=== PATIENT | female | born 1965 | race Two or more races ===

== ENCOUNTER 2023-06-15 10:12 | Outpatient (AMB) | payer MEDICAID, SELFPAY ==
[2023-06-15 10:18] VITALS: BP 170/90; PULSE 64; BMI 26.1
--- NOTE | 2023-06-15 10:18 | HO.NEPHOV ---
HPI HPI Comments History of Present Illness Details I had the privilege of seeing Maggy in follow-up for chronic kidney disease. She has history of 1 small kidney. She also has been having anemia for which she has seen senior technical support analyst and is due to have bone marrow biopsy. She feels tired. She does not have any chest pain, shortness of breath, nausea vomiting, diarrhea, dizziness or edema. She does not take any nonsteroidal anti-inflammatory medications, drugs. She is not a smoker. She claims to be compliant with her medications. She is anxious about her declining renal functions. [facility] Medical History (Updated 06/15/23 @ 10:43 by Anton Corral MD) Chronic kidney disease, stage 3b Essential (primary) hypertension Surgical History (Updated 06/15/23 @ 10:25 by Alexia Morales MA) H/O eye surgery H/O removal of cyst Family History (Updated 06/15/23 @ 10:26 by Alexia Morales MA) Mother Pancreatic cancer Kidney disease Social History (Updated 06/15/23 @ 10:26 by Alexia Morales MA) Alcohol intake: never Patient Tobacco Use Status: Never used Tobacco Vital Signs 06/15/23 10:18 Height 5 ft 9 in Weight 176 lb 8 oz BMI 26.1 BP 170/90 H Blood Pressure Location Lt brachial Position Sitting Pulse 64 Pulse Source Pulse Oximeter Physical Exam Vital Signs: Last Vital Signs Pulse 64 06/15/23 10:18 BP 170/90 H 06/15/23 10:18 BMI result Body Mass Index 26.1 Const General: comfortable and no acute distress Orientation/consciousness: patient oriented x3 HEENT Head: Yes normocephalic Mouth: Normal oral and palatal mucosa present Eyes EOM: EOMs intact bilaterally Neck Neck: Yes supple Resp Auscultation: clear to auscultation bilaterally Cardio Jugular venous distension: no JVD Rate: regular rate Heart sounds: Murmur heart sound present GI Palpation (GI): Soft to palpation Auscultation: normal bowel sounds General: Yes no CVA tenderness Back/Spine/Pelvis Back: no CVA tenderness Skin General skin exam: no rashes or lesions noted Neuro General: patient oriented x3 and moves all extremities Extrem General: Yes no pedal edema Assessment & Plan Assessment & Plan (1) Essential (primary) hypertension: Code(s): I10 - Essential (primary) hypertension (2) CKD stage 4 secondary to hypertension: Code(s): I12.9 - Hypertensive chronic kidney disease with stage 1 through stage 4 chronic kidney disease, or unspecified chronic kidney disease; N18.4 - Chronic kidney disease, stage 4 (severe) Plan I have ordered workup including nuclear medicine split function study of the kidney along with a 24 urine collection for protein and GFR. She needs to undergo her bone marrow biopsy soon. She is on carvedilol. She is not on CARLOS-inhibitor. She would be a candidate for Farxiga. She likely will need a renal biopsy. She will be seen in the office in a few weeks for further ongoing continued care. All questions answered. Further management is pending will review data. Time spent evaluating patient, retrieving data and documentation 33 minutes. Orders: Orders IRON PROFILE 06/15/23 I10 - Essential (primary) hypertension, I12.9 - Hypertensive chronic kidney disease with stage 1 through stage 4 chronic kidney disease, or unspecified chronic kidney disease, N18.4 - Chronic kidney disease, stage 4 (severe) Protein, 24 Hr Urine Group 06/15/23 I10 - Essential (primary) hypertension, I12.9 - Hypertensive chronic kidney disease with stage 1 through stage 4 chronic kidney disease, or unspecified chronic kidney disease, N18.4 - Chronic kidney disease, stage 4 (severe) Creatinine Clearance Urine 06/15/23 I10 - Essential (primary) hypertension, I12.9 - Hypertensive chronic kidney disease with stage 1 through stage 4 chronic kidney disease, or unspecified chronic kidney disease, N18.4 - Chronic kidney disease, stage 4 (severe) NM renal flow w pharm int 06/15/23 I10 - Essential (primary) hypertension, I12.9 - Hypertensive chronic kidney disease with stage 1 through stage 4 chronic kidney disease, or unspecified chronic kidney disease, N18.4 - Chronic kidney disease, stage 4 (severe) Ferritin 06/15/23 I10 - Essential (primary) hypertension, I12.9 - Hypertensive chronic kidney disease with stage 1 through stage 4 chronic kidney disease, or unspecified chronic kidney disease, N18.4 - Chronic kidney disease, stage 4 (severe) Coding Level of Care Code Est Pt Level 3 (73070) Diagnoses Essential (primary) hypertension I10 CKD stage 4 secondary to hypertension I12.9; N18.4
== END 2023-06-15 10:47 | disposition home or self-care (01) ==
PROVIDERS: PCP Nurse Practitioner Family; Visit Provider Internal Medicine Nephrology
DX: I12.9 Hypertensive chronic kidney disease with stage 1 through stage 4 chronic kidney disease, or unspecified chronic kidney disease (principal); N18.4 Chronic kidney disease, stage 4 (severe)
CPT/HCPCS: 99214

== ENCOUNTER → 2023-06-15 10:12 | Outpatient (BNVA) | payer MEDICAID, SELFPAY | PROVIDERS: PCP Nurse Practitioner Family; Visit Provider Internal Medicine Nephrology | DX: I12.9 Hypertensive chronic kidney disease with stage 1 through stage 4 chronic kidney disease, or unspecified chronic kidney disease (principal); N18.4 Chronic kidney disease, stage 4 (severe) | CPT/HCPCS: 99212 ==

== ENCOUNTER 2023-06-26 13:37 | Outpatient (REF) | payer MEDICAID, SELFPAY ==
[2023-06-26 16:10] LABS: MANUAL DIFF FLAG NO
[2023-06-26 16:19] LABS: Basophils Percent Auto 0.4 % (0-2); Eosinophils Percent Auto 0.1 % (0-4); Hematocrit 23.9 % (37.0-47.0); Hemoglobin 7.6 g/dl (12.0-16.0); Imm Gran Abs Auto 0.35 X10*3/uL (0.00-0.03); Imm Gran Pct Auto 4.4 % (0.0-0.4); Lymphocytes Percent Auto 25.7 % (20-40); Mean Corpuscular HGB Conc 31.8 g/dl (31.0-35.0); Mean Corpuscular Hemoglobin 27.6 pg (27.0-33.0); Mean Corpuscular Volume 86.9 fL (80.0-98.0); Mean Platelet Volume 10.8 fL (9.4-12.3); Monocytes Absolute Auto 0.4 X10*3/uL (0.1-1.2); Monocytes Percent Auto 5.2 % (2-11); Neutrophils Absolute Auto 5.1 x10*3/uL (2.0-8.3); Neutrophils Percent Auto 64.2 % (45-73); Platelet Count 204 X10*3/uL (160-400); Red Blood Count 2.75 X10*6/uL (4.20-5.50); Red Cell Distribution Width 18.9 % (11.0-16.0); White Blood Count 7.9 X10*3/uL (4.8-10.8)
[2023-06-26 16:21] LABS: NRBC Pct Auto 1.1 /100WBC (0.0-0.2)
[2023-06-26 16:27] LABS: INTERNATIONAL NORM RATIO 1.1 (0.9-1.1)
[2023-06-26 16:33] LABS: Anion Gap 12 (12-20); Blood Urea Nitrogen 27 mg/dL (9-16); Calcium 9.7 mg/dL (8.4-10.2); Carbon Dioxide 29 mmol/L (22-29); Chloride 105 mmol/L (96-108); Estimated Glomerular Filt Rate 33; Iron 99 mcg/dL (30-160); Percent Iron Saturation 66 % (15-50); Potassium 3.6 mmol/L (3.3-5.1); Sodium 142 mmol/L (135-145); Total Iron Binding Capacity 151 mcg/dL (228-428); Unsaturated Iron Binding 52 ug/dL
[2023-06-26 16:52] LABS: Ferritin 403 ng/mL (10-250); Vitamin D 25-OH Total 37.5 ng/mL (>30)
[2023-06-29 11:53] LABS: Calcium (PTHI) 9.6 mg/dL (8.6-10.4); PTHI 35 pg/mL (16-77)
[2023-06-29 15:34] LABS: Kappa/Lambda Lt Ch Free Ratio 10.21 (0.26-1.65); Lambda Light Chain, Free Serum 18.7 mg/L (5.7-26.3)
[2023-06-29 18:23] LABS: PES - Abn Protein Band 1 3.1 g/dL (NONE DETECTED); Prot Elec - Albumin 3.9 g/dL (3.8-4.8); Prot Elec - Alpha1 0.3 g/dL (0.2-0.3); Prot Elec - Alpha2 0.7 g/dL (0.5-0.9); Prot Elec - Beta 1 0.4 g/dL (0.4-0.6); Prot Elec - Beta 2 0.3 g/dL (0.2-0.5); Prot Elec - Gamma 3.7 g/dL (0.8-1.7); Prot Elec - Total Protein 9.3 g/dL (6.1-8.1)
== END 2023-06-26 13:38 | disposition home or self-care (01) ==
LOC: HO.HMGCLDS 13:37
PROVIDERS: Absent Provider Internal Medicine; PCP Nurse Practitioner Family; Visit Provider Internal Medicine Nephrology
DX: I12.9 Hypertensive chronic kidney disease with stage 1 through stage 4 chronic kidney disease, or unspecified chronic kidney disease (principal); N18.4 Chronic kidney disease, stage 4 (severe); D47.2 Monoclonal gammopathy
CPT/HCPCS: 36415; 80051; 82306; 82310; 82565; 82575; 82728; 83521; 83540; 83970; 84100; 84156; 84165; 84520; 85025; 85610

== ENCOUNTER 2023-07-13 10:04 | Outpatient (AMB) | payer MEDICAID, SELFPAY ==
[2023-07-13 10:14] VITALS: BP 132/72; PULSE 66; BMI 25.7
--- NOTE | 2023-07-13 10:14 | HO.NEPHOV_ITS ---
HPI HPI Comments History of Present Illness Details I had the privilege of seeing Maggy in follow-up for chronic kidney disease. She has history of 1 small kidney. She also has been having anemia for which she has seen quality checker and had bone marrow biopsy. She feels tired. She does not have any chest pain, shortness of breath, nausea vomiting, diarrhea, dizziness or edema. She does not take any nonsteroidal anti- inflammatory medications, drugs. She is not a smoker. She claims to be compliant with her medications. There were no new complaints at the time of this office visit.. [facility] Medical History (Updated 06/15/23 @ 10:43 by Anton Corral MD) Chronic kidney disease, stage 3b Essential (primary) hypertension Surgical History H/O eye surgery H/O removal of cyst Family History Mother Pancreatic cancer Kidney disease Social History Alcohol intake: never Patient Tobacco Use Status: Never used Tobacco Vital Signs 07/13/23 10:14 Height 5 ft 9 in Weight 174 lb 4 oz BMI 25.7 BP 132/72 Blood Pressure Location Lt brachial Position Sitting Pulse 66 Pulse Source Pulse Oximeter Physical Exam Vital Signs: Last Vital Signs Pulse 66 07/13/23 10:14 BP 132/72 07/13/23 10:14 BMI result Body Mass Index 25.7 Const General: comfortable and no acute distress Orientation/consciousness: patient oriented x3 HEENT Head: Yes normocephalic Mouth: Normal oral and palatal mucosa present Eyes EOM: EOMs intact bilaterally Neck Neck: Yes supple Resp Auscultation: clear to auscultation bilaterally Cardio Jugular venous distension: no JVD Rate: regular rate GI Palpation (GI): Soft to palpation Auscultation: normal bowel sounds General: Yes no CVA tenderness Back/Spine/Pelvis Back: no CVA tenderness Skin General skin exam: no rashes or lesions noted Neuro General: patient oriented x3 and moves all extremities Extrem General: Yes no pedal edema Assessment & Plan Assessment & Plan (1) Chronic kidney disease, stage 3b: Code(s): N18.32 - Chronic kidney disease, stage 3b (2) Essential (primary) hypertension: Code(s): I10 - Essential (primary) hypertension Plan Her renal functions have settled to baseline. She had undergone bone marrow biopsy soon. She is on carvedilol. She is not on CARLOS-inhibitor. She would be a candidate for Farxiga. She may need a renal biopsy. She will be seen in the office in a few weeks for further ongoing continued care. All questions answered. Further management is pending will review data. Orders: Orders Electrolytes 07/13/23 N18.32 - Chronic kidney disease, stage 3b, I10 - Essential (primary) hypertension Creatinine 07/13/23 N18.32 - Chronic kidney disease, stage 3b, I10 - Essential (primary) hypertension Calcium 07/13/23 N18.32 - Chronic kidney disease, stage 3b, I10 - Essential (primary) hypertension Blood Urea Nitrogen 07/13/23 N18.32 - Chronic kidney disease, stage 3b, I10 - Essential (primary) hypertension Coding Level of Care Code Est Pt Level 3 (11210) Diagnoses Chronic kidney disease, stage 3b N18.32 Essential (primary) hypertension I10 Results Reviewed Nephrology Results: Hgb 7.6 g/dl (12.0-16.0) L 06/26/23 WBC 7.9 X10*3/uL (4.8-10.8) 06/26/23 Plt Count 204 X10*3/uL (160-400) 06/26/23 Sodium 142 mmol/L (135-145) 06/26/23 Potassium 3.6 mmol/L (3.3-5.1) 06/26/23 Chloride 105 mmol/L (96-108) 06/26/23 Carbon Dioxide 29 mmol/L (22-29) 06/26/23 BUN 27 mg/dL (9-16) H 06/26/23 Creatinine 1.63 mg/dL (0.5-1.4) H 06/26/23 Calcium 9.7 mg/dL (8.4-10.2) 06/26/23 Phosphorus 4.0 mg/dL (2.7-4.5) 06/26/23 PTH Intact 35 pg/mL (16-77) 06/26/23
== END 2023-07-13 10:48 | disposition home or self-care (01) ==
PROVIDERS: PCP Nurse Practitioner Family; Visit Provider Internal Medicine Nephrology
DX: N18.32 Chronic kidney disease, stage 3b (principal); I10 Essential (primary) hypertension
CPT/HCPCS: 99213

== ENCOUNTER → 2023-07-13 10:04 | Outpatient (BNVA) | payer MEDICAID, SELFPAY | PROVIDERS: PCP Nurse Practitioner Family; Visit Provider Internal Medicine Nephrology | DX: I12.9 Hypertensive chronic kidney disease with stage 1 through stage 4 chronic kidney disease, or unspecified chronic kidney disease (principal); N18.32 Chronic kidney disease, stage 3b | CPT/HCPCS: 99212 ==

== ENCOUNTER → 2023-08-27 11:15 | Outpatient (REF) | payer MEDICAID, SELFPAY ==
--- NOTE | ~2023-08-27 | NM_ITS ---
EXAMINATION: RENAL DYNAMIC IMAGING STUDY WITH LASIX CLINICAL INFORMATION: Essential hypertension. COMPARISON: No previous radionuclide renal scan is available for comparison. Abdominal ultrasound dated 03/22/20202014 is available for comparison. TECHNIQUE: Serial gamma scintillation camera images were obtained over the posterior trunk during the initial transit and subsequent distribution of a bolus intravenous injection of 10.0 mCi of Tc-99m DTPA. At 30 minutes later, 40 mg of Lasix was administered intravenously and an additional 30 minutes of images obtained. FINDINGS: Initial rapid sequence images show mildly diminished flow to the left kidney compared to the right. Flow to the right kidney appears normal. Subsequent sequential static images obtained up to 30 minutes show moderately diminished concentration in the left kidney compared to the right. Concentration in the right kidney appears normal. The kidneys are approximately equal in size. There is a mild delay in visualization of excretory function bilaterally which occurs at approximately 12 to 14 minutes post injection. In addition to faint collecting system activity at this time there is also faint urinary bladder activity visualized. As the study progresses there is gradually increasing bladder activity. At 30 minutes there is good visualization of activity in the urinary bladder and only minimal retention in both renal pelves. Following Lasix administration, there is continued filling of the urinary bladder and washout from the renal collecting systems bilaterally. At the end of the study almost all the excretory activity is in the urinary bladder and there is no abnormal retention in either renal collecting system. The T-1/2 washout times following Lasix administration are: Left 13 minutes and right 7 minutes. The relative function of the two kidneys based on the 2-3 minute images are: Left 40% and right 60%. NM/NM renal flow w pharm int IMPRESSION: LEFT KIDNEY: Mildly diminished perfusion and function. The relative function of this kidney is significantly less than on the right, as quantitated above. There is no hydronephrosis or outflow obstruction. RIGHT KIDNEY: Normal-appearing perfusion but mildly diminished function as evidenced by a significant delay in visualization of excretory function. There is no hydronephrosis or outflow obstruction.
== END ==
LOC: HO.NUCMED 11:15
PROVIDERS: PCP Nurse Practitioner Family; Visit Provider Internal Medicine Nephrology
DX: I12.9 Hypertensive chronic kidney disease with stage 1 through stage 4 chronic kidney disease, or unspecified chronic kidney disease (principal); N18.4 Chronic kidney disease, stage 4 (severe)
CPT/HCPCS: 78708; A9539; J1940

== ENCOUNTER 2023-10-13 09:39 | Outpatient (AMB) | payer MEDICAID, SELFPAY ==
--- NOTE | 2023-10-13 09:49 | HO.NEPHOV ---
HPI HPI Comments History of Present Illness Details I had the privilege of seeing Maggy in follow-up for chronic kidney disease. She has history of 1 small kidney. 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 She underwent PLEX. She is getting weekly treatment by her audio video tech. She feels tired. She does not have any chest pain, shortness of breath, nausea vomiting, diarrhea, dizziness or edema. She does not take any nonsteroidal anti-inflammatory medications, drugs. She is not a smoker. She claims to be compliant with her medications. There were no other new complaints at the time of this office visit. [facility] Medical History (Updated 06/15/23 @ 10:43 by Anton Corral MD) Chronic kidney disease, stage 3b Essential (primary) hypertension Surgical History H/O eye surgery H/O removal of cyst Family History Mother Pancreatic cancer Kidney disease Social History Alcohol intake: never Patient Tobacco Use Status: Never used Tobacco Vital Signs 10/13/23 09:50 Height 5 ft 9 in BP 136/70 Blood Pressure Location Lt brachial Position Sitting Pulse 65 Pulse Source Pulse Oximeter Pulse Oximetry (%) 99 Oxygen Delivery Method Room Air Physical Exam Vital Signs: Last Vital Signs Pulse 65 10/13/23 09:50 BP 136/70 10/13/23 09:50 Pulse Ox 99 10/13/23 09:50 Oxygen Delivery Method Room Air 10/13/23 09:50 Const General: comfortable and no acute distress Orientation/consciousness: patient oriented x3 HEENT Head: Yes normocephalic Mouth: Normal oral and palatal mucosa present Eyes EOM: EOMs intact bilaterally Neck Neck: Yes supple Resp Auscultation: clear to auscultation bilaterally Cardio Jugular venous distension: no JVD Rate: regular rate GI Palpation (GI): Soft to palpation Auscultation: normal bowel sounds General: Yes no CVA tenderness Back/Spine/Pelvis Back: no CVA tenderness Skin General skin exam: no rashes or lesions noted Neuro General: patient oriented x3 and moves all extremities Extrem General: Yes no pedal edema Assessment & Plan Assessment & Plan (1) Chronic kidney disease, stage 3b: Code(s): N18.32 - Chronic kidney disease, stage 3b (2) Essential (primary) hypertension: Code(s): I10 - Essential (primary) hypertension Plan Her renal functions have settled to baseline. She is followed by her Credit Administration Specialist. She is on carvedilol. She is not on CARLOS-inhibitor. She may need a renal biopsy if her renal function decline. She will be seen in the office in a few weeks for further ongoing continued care. All questions answered. Further management is pending data. Orders: Orders Calcium Today I10 - Essential (primary) hypertension, N18.32 - Chronic kidney disease, stage 3b Electrolytes Today I10 - Essential (primary) hypertension, N18.32 - Chronic kidney disease, stage 3b Blood Urea Nitrogen Today I10 - Essential (primary) hypertension, N18.32 - Chronic kidney disease, stage 3b Creatinine Today I10 - Essential (primary) hypertension, N18.32 - Chronic kidney disease, stage 3b Uric Acid Today I10 - Essential (primary) hypertension, N18.32 - Chronic kidney disease, stage 3b Coding Level of Care Code Est Pt Level 3 (51211) Diagnoses Chronic kidney disease, stage 3b N18.32 Essential (primary) hypertension I10
[2023-10-13 09:50] VITALS: BP 136/70; PULSE 65; O2SAT 99
== END 2023-10-13 10:23 | disposition home or self-care (01) ==
LOC: HO.HKAS 09:39
PROVIDERS: PCP Nurse Practitioner Family; Visit Provider Internal Medicine Nephrology
DX: N18.32 Chronic kidney disease, stage 3b (principal); I10 Essential (primary) hypertension
CPT/HCPCS: 99213

== ENCOUNTER → 2023-10-13 09:39 | Outpatient (BNVA) | payer MEDICAID, SELFPAY | PROVIDERS: PCP Nurse Practitioner Family; Visit Provider Internal Medicine Nephrology | DX: I12.9 Hypertensive chronic kidney disease with stage 1 through stage 4 chronic kidney disease, or unspecified chronic kidney disease (principal); N18.32 Chronic kidney disease, stage 3b | CPT/HCPCS: 99212 ==

== ENCOUNTER 2024-01-19 10:14 | Outpatient (AMB) | payer MEDICAID, SELFPAY ==
--- NOTE | 2024-01-19 10:17 | HO.NEPHOV ---
Vital Signs 01/19/24 10:30 Height 5 ft 9 in Weight 191 lb 6 oz BMI 28.3 BP 118/62 Blood Pressure Location Lt brachial Position Sitting Pulse 63 Pulse Source Pulse Oximeter Pulse Oximetry (%) 97 Oxygen Delivery Method Room Air Intake Visit Reasons: 3 mon follow up/ LVM [employer] Business Analyst Required: No Accompanied by: Self / Same As Patient Allergies ampicillin Allergy (Verified 01/19/24 10:32) Unknown Penicillins Allergy (Verified 01/19/24 10:32) Unknown HPI Comments Details: I had the privilege of seeing Maggy in follow-up for chronic kidney disease. She has history of 1 small kidney. 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 She had undergone PLEX. She is getting treatment by her housing director. She feels tired. She does not have any chest pain, shortness of breath, nausea vomiting, diarrhea, dizziness or edema. She does not take any nonsteroidal anti-inflammatory medications, drugs. She is not a smoker. She claims to be compliant with her medications. There were no other new complaints at the time of this office visit. [facility] Medical History (Updated 06/15/23 @ 10:43 by Anton Corral MD) Chronic kidney disease, stage 3b Essential (primary) hypertension Surgical History H/O eye surgery H/O removal of cyst Family History Mother Pancreatic cancer Kidney disease Social History Alcohol intake: never Patient Tobacco Use Status: Never used Tobacco Physical Exam Vital Signs: Last Vital Signs Pulse 63 01/19/24 10:30 BP 118/62 01/19/24 10:30 Pulse Ox 97 01/19/24 10:30 Oxygen Delivery Method Room Air 01/19/24 10:30 BMI result Body Mass Index 28.3 Const General: comfortable and no acute distress Orientation/consciousness: patient oriented x3 HEENT Head: Yes normocephalic Mouth: Normal oral and palatal mucosa present Eyes EOM: EOMs intact bilaterally Neck Neck: Yes supple Resp Auscultation: clear to auscultation bilaterally Cardio Jugular venous distension: no JVD Rate: regular rate GI Palpation (GI): Soft to palpation Auscultation: normal bowel sounds General: Yes no CVA tenderness Back/Spine/Pelvis Back: no CVA tenderness Skin General skin exam: no rashes or lesions noted Neuro General: patient oriented x3 and moves all extremities Extrem General: Yes no pedal edema Assessment & Plan Assessment & Plan (1) Chronic kidney disease, stage 3b: Code(s): N18.32 - Chronic kidney disease, stage 3b Category: Medical (2) Essential (primary) hypertension: Code(s): I10 - Essential (primary) hypertension Category: Medical Plan Her renal functions have settled to baseline. She is followed by her University President. She is on carvedilol. She is not on CARLOS-inhibitor. She does not need a renal biopsy now. She will be seen in the office for further ongoing continued care. All questions answered. Further management is pending data Coding Level of Care Code Est Pt Level 4 (47548) Diagnoses Chronic kidney disease, stage 3b N18.32 Essential (primary) hypertension I10
[2024-01-19 10:30] VITALS: BP 118/62; PULSE 63; O2SAT 97; BMI 28.3
== END 2024-01-19 10:50 | disposition home or self-care (01) ==
PROVIDERS: PCP Nurse Practitioner Family; Visit Provider Internal Medicine Nephrology
DX: N18.32 Chronic kidney disease, stage 3b (principal); I10 Essential (primary) hypertension
CPT/HCPCS: 99214

== ENCOUNTER → 2024-01-19 10:14 | Outpatient (BNVA) | payer MEDICAID, SELFPAY | PROVIDERS: PCP Nurse Practitioner Family; Visit Provider Internal Medicine Nephrology | DX: I12.9 Hypertensive chronic kidney disease with stage 1 through stage 4 chronic kidney disease, or unspecified chronic kidney disease (principal); N18.32 Chronic kidney disease, stage 3b | CPT/HCPCS: 99212 ==

== ENCOUNTER 2024-10-04 09:57 | Outpatient (REF) | payer MEDICAID, SELFPAY ==
--- OUTSIDE RECORDS SUMMARY | 2024-10-04 12:15 | XMS_ITS | Encounter Summary ---
Author Organization [facility] Address [address] [place] [address] Care Team Providers Care Trains Service Conductor Name Role Phone Fito Rush Primary Care Provider Encounter Details Date Type Department Care Team [...] Information Value Date Recorded Sex Assigned at Not on file Legal Sex Female 9:36 AM EST Gender Identity Not on file Sexual Orientation Not on file documented as [...] Care Team (Late st Contact Info) Description 10/25/2024 10:15 AM EDT Appointment [facility] Xray [address] [place] [phone] 11/01/2024 9:15 AM EDT Office Visit Orthopedic Surgery - [place] [address] [phone] Goyo Noriega DPM [address] [address] 12/16/2024 9:15 AM EDT Office Visit [facility] Hematology Oncology [address] [place] [address] Clarias Vazquez MD [address] [place] [address] documented as of this encounter Visit Diagnoses Not on filedocumented in this encounter Care Teams Trains Service Conductor Relationship Specialty Start Date End Date Fito Rush PA [address] [address] PCP - General 07/17/23 documented as of this encounter
--- OUTSIDE RECORDS SUMMARY | 2024-10-04 12:15 | XMS_ITS | Encounter Summary ---
Author Organization [facility] Address [id number] [place] [phone] Care Team Providers Care Media Traffic Manager Name Role Phone Fito Rush Primary Care Provider [phone] Encounter Details Date Type Department Care Team (Late st Contact Info) Description 06/03/2024 9:47 AM EDT Hospital Encounter TH HISTORIC ENCOUNTERS EASTERN CONVERSION ONLY Lia Pendleton MD [address] [place] [address] Social History Tobacco Use Types Packs/Day Years [...] y.o. female. 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 BCN OP RITUXIMAB (IV/SC) WEEKLY X4 Plan Provider: Clarisa Palomo MD Treatment goal: Palliative Line of treatment: First Line 10/08/2023 - Chemotherapy [facility] BCN OP BORTEZOMIB SC OR IVP, DAYS [...] ??? 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HCC) ??? Thee's disease (HCC) ??? Anemia ??? Chronic kidney disease ??? Hypertension ??? Iron deficiency anemia 01/27/2023 ??? Stroke (HCC) SOCIAL HISTORY: She never smoked She denies alcohol use and abuse She is single FAMILY HISTORY: Noncontributory Current Outpatient Medications: ??? atorvastatin (LIPITOR) tablet 40 mg, , Disp: , Rfl: ??? Biotin 11149 MCG TABS, Take by mouth., Disp: , [...] (HCC) CHRONIC KIDNEY DISEASE STAGE 3A 58-year-old -[place] female, who has multiple medical issues including IgM kappa monoclonalgammopathy/lymphoplasmacytic lymphoma, patient earlier this year had rituximab infusion and has been on Velcade weekly, patient has 2 more weekly Velcade to go and after that plan is to have rituximab infusion but unfortunately patient has been having some worsening visual symptom, seen by an show dog trainer locally who is not sure etiology of [...] Info) Description 10/25/2024 10:15 AM EDT Appointment [facility] Xray [address] [place] [phone] 11/01/2024 9:15 AM EDT Office Visit Orthopedic Surgery - [place] [address] [facility] [address] [place] [phone] Goyo Noriega DPStef [address] [address] 12/16/2024 9:15 AM EDT Office Visit [facility] Hematology Oncology [address] [place] [address] Clarisa Vazquez MD [address] [place] [address] documented as of this encounter Procedures Procedure Name Priority Date/Time Associated Diagnosis Comments ..MISCELLANEOUS REFERENCE LAB TEST 06/03/2024 documented in this encounter Results * Miscellaneous reference lab test (06/03/2024) us Provider Onbase LAB BLOOD ORDERABLES Final Re sult documented in this encounter Visit Diagnoses Not on filedocumented in this encounter Care Teams Media Traffic Manager Relationship Specialty Start Date End Date Fito Rush PA [facility] [address] [place] [address] PCP - General 07/17/23 documented as of this encounter
--- OUTSIDE RECORDS SUMMARY | 2024-10-04 12:15 | XMS_ITS | Clinical Summary ---
Author Organization [facility] Address [address] [place] [address] Care Team Providers Care Electrophysiologist Name Role Phone Fito Rush PA-C Primary Care Provider Allergies Active Allergy Reactions Criticality Noted Date Comments Penicillins Hives Medium 09/15/2022 Seasonal Other (See Comments) Low 12/11/2023 Runny eyes , runny nose Medications Medication Sig Dispensed Refills Start Date End Date Status atorvastatin (LIPITOR) tablet 40 mg 0 08/08/2022 Active FeroSul 325 (65 Fe) MG tablet Take 1 tablet (325 mg total) by mouth once. Take one tablet once daily 0 07/28/2022 Active hydrocortisone (CORTEF) tablet 5 mg Take 1 tablet (5 mg total) by mouth daily. In the afternoon 0 06/21/2022 Active Cholecalciferol (Vitamin D3) 50 MCG (2000 UT) capsule 0 01/22/2023 Active folic acid (FOLVITE) tablet 1 mg 0 01/21/2023 Active hydrocortisone (CORTEF) tablet 5 mg Take 2 tablets (10 mg total) by mouth daily. 0 05/13/2020 Active carvedilol (COREG) 6.25 MG tablet Take 1 tablet (6.25 mg total) by mouth 2 (two) times a day. 0 02/26/2023 Active Biotin 69797 MCG TABS Take by mouth. 0 Active potassium chloride ER (K-DUR) 10 MEQ tablet Take 1 tablet (10 mEq total) by mouth 2 (two) times a day. 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) 06/15/2023 Iron deficiency anemia 01/27/2023 Microcytic anemia 09/15/2022 Hemoglobinopathy 09/15/2022 Sickle cell trait 09/15/2022 Alpha thalassemia trait 09/15/2022 Stage 3a chronic kidney disease 09/15/2022 Other fatigue 09/15/2022 High serum protein level 09/15/2022 Family History Medical History Relation Name Comments Cancer Mother Relation Name Status Comments Mother Social History Tobacco Use Types Packs/Day Years Used Date Smoking Tobacco: Never Smokeless Tobacco: Never Alcohol Use Standard Drinks/Week Comments Never 0 (1 standard drink = 0.6 oz pur e alcohol) Sex and Gender Information Value Date Recorded Sex Assigned at Female 06/20/2022 1:41 PM EST Gender Identity Female 07/23/2023 12:10 PM EST Sexual Orientation Straight 07/23/2023 12 :10 PM EST Job Start Date Occupation Industry Not on file Not on file Not on file Last Filed Vital Signs Vital Sign Reading Time Taken Comments Blood Pressure 122/74 06/10/2024 10:14 AM EDT Pulse 61 06/10/2024 10:14 AM EDT Temperature 36.7 ??C (98 ??F) 06/10/2024 10: 14 AM EDT Respiratory Rate 18 06/10/2024 10:1 4 AM EDT Oxygen Saturation 100% 06/10/2024 10: 14 AM EDT Inhaled Oxygen Concentration - - Weight 88.9 kg (195 lb 15.8 oz) 024 11:04 AM EDT Height 175.3 cm (5' 9 ) 05/13/2024 9:20 AM EDT Body Mass Index 28.94 05/13/2024 9:20 AM EDT Plan of Treatment Health Maintenance Due Date Last Done Comments Hepatitis B Vaccines (1 of 3 - 3-dose series) 1965 COVID-19 Vaccine (#1) 1970 Pneumococcal Vaccine (1 of 2 - PCV) 1971 Depression Screening 1977 BMI Counseling 1983 Preventative Health Evaluation 1983 DTap / Tdap / Td (1 - Tdap) 1984 Shingrix-Zoster Vaccine (1 of 2) 1984 Cervical Cancer Screening (P ap Smear) 1986 Colon Cancer Screening (Colonoscopy) 2010 Breast Cancer Screening (Mammogram) 2015 Influenza Vaccine (#1) 2024 Hepatitis C Screening Completed 09/02/2022 RSV Ped < 20 months Aged Out No longe r eligible based on patient's age to complete this topic Care Teams Electrophysiologist Relationship Specialty Start Date End Date Fito Rush PA-C [address] [place] [address] PCP - General Physician Sharepoint Application Architect 07/17/23
--- OUTSIDE RECORDS SUMMARY | 2024-10-04 12:15 | XMS_ITS ---
Author Organization [facility] Address [address] [place] [address] Care Team Providers Care Bungy Jump Master Name Role Phone Fito Rush PA-C Primary Care Provider [phone] Active Problems Problem Noted Date Diagnosed Date [...] fatigue 09/15/2022 High serum protein level 09/15/2022 Current Oncology Plans [facility] BCN OP BORTEZOMIB SC OR IVP, DAYS 1,8,15,22 (2 HRS)* Plan Start Date: 10/07/2023 Plan Provider:Clarisa Jones MD Linked Problems 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 HCC) Treatment Medications albuterol (PROVENTIL)bortezo mib (VELCADE)dexamethasone (DECADRON)diphenhydrAMINE (BENADRYL)EPINEPHrinefamotidine (PF) (PEPCID)hydrocortisone (SOLU-CORTEF) IVmeperidine (DEMEROL) 25 MG/MLpotassium chloride ERSaline Flush 0.9 %sodium chloride (NS) 0.9 %sodium chloride 0.9% bolus (NS) Past Plans ONCOLOGY TREATMENT Plan Name Start Date Discontinue Date Treatment Medications Discontinue Reason Plan Provider Cycles [facility] BCN OP RITUXIMAB (IV/SC) WEEKLY X4 07/22/2010/06/2023 acetaminophen (TYLENOL)albuter ol (PROVENTIL)dexam ethasone sod phosphate PF (DECADRON)diphen hydrAMINE (BENADRYL)EPINEP Hrinefamotidine (PF) (PEPCID)hydrocor tisone (SOLU-CORTEF) IVmeperidine (DEMEROL) 25 MG/MLriTUXimab-h yaluronidase (RITUXAN HYCELA) 1400-23019 MG -UT/11.7MLriTUXi mab-pvvr (RUXIENCE) infusion (Outpatient record)Saline Flush 0.9 %sodium chloride (NS) 0.9 %sodium chloride 0.9% bolus (NS) Therapy Complete Subramonia Clarisa Palomo MD 2 of 2 cycles started Radiation Treatments * No radiation treatments are documented for this patient in [facility]. Treatments may have been administered in another system.
--- OUTSIDE RECORDS SUMMARY | 2024-10-04 12:15 | XMS_ITS | Encounter Summary ---
Author Organization [facility] Address [address] [place] [address] Care Team Providers Care Coffee Weigher Name Role Phone Fito Rush Primary Care Provider [phone] Encounter Details Date Type Department Care Team [...] Info) Description 10/25/2024 10:15 AM EDT Appointment [facility] Xray [address] [place] [address] 11/01/2024 9:15 AM EDT Office Visit Orthopedic Surgery - [place] [address] [phone] Goyo Noriega, DPStef [address] [address] 12/16/2024 9:15 AM EDT Office Visit [facility] Hematology Oncology [address] [place] [address] Clarisa Vazquez MD [address] [place] [phone] documented as of this encounter Visit Diagnoses Not on filedocumented in this encounter Care Teams Coffee Weigher Relationship Specialty Start Date End Date Fito Rush PA [facility] [address] [place] [address] PCP - General 07/17/23 documented as of this encounter
--- OUTSIDE RECORDS SUMMARY | 2024-10-04 12:15 | XMS_ITS | Encounter Summary ---
Author Organization [facility] Address [id number] [place] [phone] Care Team Providers Care Cream Cheese Maker Name Role Phone Fito Rush Primary Care Provider [phone] Reason for Visit * Reason Comments Follow-up Encounter Details Date Type Department Care Team (Latest Contact Info) Description 09/09/2024 9:15 AM EST Office Visit [facility] Hematology Oncology [address] [place] [address] Juan Vazquez MD [address] [place] [address] 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CMS/HCC) (Primary Dx); Alpha thalassemia trait; Adrenal insufficiency (Bledsoe's disease) (CMS/HCC); MRSA cellulitis Social History Tobacco Use Types Packs/Day Years Used Date Smoking Tobacco: Never Smokeless Tobacco: Never Tobacco Cessation:Counseling Given: Not Answered Alcohol Use Standard Drinks/Week Comments Never 0 [...] Sign Reading Time Taken Comments Blood Pressure 134/76 09/09/2024 9:17 AM EST Pulse 72 09/09/2024 9:17 AM EST Temperature 36.2 ??C (97.1 ??F) 09/09/2024 9:[address] Respiratory Rate - - Oxygen Saturation 100% 09/09/2024 9:17 AM EST Inhaled Oxygen Concentration - - Weight 86.6 kg (191 lb) 09/09/2024 9:17 AM EST Height - - Body Mass Index 28.21 08/30/2024 9:11 AM EST documented in this encounter Ordered Prescriptions Prescription Sig Dispense Quantity Refills Last Filled Start Date End Date potassium chloride (KLOR-CON) 10 mEq CR tablet Take 1 tablet (10 mEq total) by mouth 2 (two) times a day. 180 tablet 1 09/09/2024 documented in this encounter Progress Notes * Juan Vazquez MD - 09/09/2024 9:15 AM EST Follow up 3 months Labs one week before appt * Juan Vazquez MD - 09/09/2024 9:15 AM EST Images from the original note were not included. 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 female. 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 Testing in 2021 demonstrated sickle cell trait-hypertensive trait. She continues on iron p.o. 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 Patient had a staging PET CT scan --and then the initial treatment includedCompletion of 4 cycles of rituximab weekly, patient has now started on Velcade/dexamethasone, and she has completed 6 cycles, last date of Velcade therapy 06/10/2024 The previous cycle #5 was held for nearly 6 weeks, due to recurrent cellulitis of left breast Discussion at the previous visit in July 2024 regarding discontinuation of rituximab. After review of pros and cons, patient agrees to hold off further treatment for the lymphoplasmacytic lymphoma. I will continue to monitor with lab work, and imaging at 6-month interval. If she has any diseaseprogression would be a candidate to consider oral medication such as Calquence in future. Update-patient returns for follow-up. She has been feeling fairly well over the last month. She hasnot had any new episodes of infections. She remains active. She does sensation of irritation in thethroat and feels like there is more mucus secretion. Denies any chills or fevers. She had a follow-up with her PCP. She had lab work performed in the end of July that is reviewed apart from elevat ion in creatinine that is slight as well as hypokalemia no other issues. She is not taking her potassium supplements anymore. Her M spike has decreased significantly from a peak of 2.6 down to 0.3, nearly 90% response. Therefore we will continue monitoring at 3-month interval with lab work, will order restaging imaging PET CT scan after the next clinic visit, patient agrees The following is copied, reviewed and edited Cancer Staging No matching staging information was found for the patient. Oncology History 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CMS/HCC) 07/17/2023 Initial Diagnosis 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CMS/HCC) 06/24/2024 - 07/06/2024 Chemotherapy dexAMETHasone (DECADRON) tablet 8 mg, 8 mg (40 % of original dose 20 mg), oral, Once, 1 of 1 cycle Dose modification: 20 mg (original dose 20 mg, Cycle 1), 8 mg (original dose 20 mg, Cycle 1, Reason: Dose Not Tolerated) Administration: 8 mg (06/24/2024), 8 mg (07/01/2024), 8 mg (07/06/2024) riTUXimab-pvvr (RUXIENCE) 700 mg in sodium chloride 320 mL IVPB, 769 mg (100 % of original dose 375mg/m2), intravenous, Once, 1 of 1 cycle Dose modification: 375 mg/m2 (original dose 375 mg/m2, Cycle 1) Administration: 700 mg (07/01/2024), 700 mg (07/06/2024) alteplase (CATHFLO ACTIVASE) injection 2 mg, 2 mg, intra-catheter, As needed, 1 of 1 cycle riTUXimab-pvvr (RUXIENCE) 700 mg in sodium chloride 320 mL IVPB, 375 mg/m2 = 700 mg, intravenous, Once, 1 of 1 cycle Administration: 700 mg (06/24/2024) 09/2022 -57-year-old lady, who is referred for hematology evaluation regarding microcytic anemia. Patient reports that her main symptom is fatigue. She has not been able to follow-up with a PCP fora while, due to her parents being sick. More recently she establish care and had lab work performed. Patient had lab work performed at her PCP office on 09/02/2022-that demonstrated anemia with hemoglobin at 9.3, microcytic MCV 78.3 Microcytosis and anemia are chronic Platelet count, and WBC were in the normal range Metabolic profile demonstrated elevated creatinine at 1.4, and protein is high at 9.2 Of which, globulin is high at 5.4 Recent hepatitis C testing, nonreactive antibody, Iron studies reviewed from 06/09/2022-demonstrated a normal ferritin 93, iron 92, iron saturation 43% all normal. She also had testing on 06/09/2022 for hemoglobinopathy-it showed hemoglobin 8- 3.3, and hemoglobin S at 32.8, suggestive of hemoglobin SS trait/hemoglobin S trait-alpha thalassemia trait. Recommendation was to rule out concurrent iron deficiency. Cancer Staging No matching staging information was found for the patient. Oncology History 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HCC) 07/17/2023 Initial Diagnosis 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HCC) 03/2023 -Skeletal survey x-rays unremarkable. MM labs showed elevated M-spike at 1.8 with IgM Dedra monoclonal immunoglobulins, concerning for possible MGUS. Per Dr. Palomo recommendation, monitor M spike closely. If M-spike is > 2, then we should proceed with Bone Marrow Biopsy or if she becomes significantly symptomatic. Case discussed with Dr. Dewey BANKS. Patient's M spike has increased to greater than 2, and she is at risk for smoldering myeloma versus symptomatic multiple myeloma. Will inform her PCP, and also client coordinator if she develops any progressive nephropathy, hypercalcemia, anemia, skeletal lesions that are painful, would need further work-up including biopsies of skeletal lesions, bone marrow biopsy etc. 07/23/2023 - 08/20/2023 Chemotherapy [facility] BCN OP RITUXIMAB (IV/SC) WEEKLY X4 Plan Provider: Juan Palomo MD Treatment goal: Palliative Line of treatment: First Line 10/08/2023 - Chemotherapy [facility] [place] BORTEZOMIB SC OR IVP, DAYS 1,8,15,22 (2 HRS) Plan Provider: Juan Palomo MD Treatment goal: Palliative Line of treatment: First Line Fmyrpfa03/2024- Update-patient completed 3 cycles of rituximab she had recurrent MRSA infection on the skin, therefore had to hold the rituximab x 3 weeks. Patient was admitted to [facility] under surgical team and infectious disease consultation. Culture report revealed MRSA resistant to doxycycline. She was treated with linezolid. She also received Hibiclens, m upirocin etc. She has had a difficult time clearing the infection. After several discussions she has also now started on insulin for her diabetes ROS: GENERAL: No malaise, significant weight loss or fever NECK: No lumps, goiter, pain or significant neck swelling RESPIRATORY: No cough, wheezing or shortness of breath CARDIOVASCULAR: No chest pain, leg swelling or palpitations GI: No abdominal discomfort, blood in stools or black stools MUSCULOSKELETAL: No joint pain or swelling, back pain, or muscle pain. 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[facility]) 09/15/2022 Stage 3b chronic kidney disease ([facility]) 05/02/2022 MRSA cellulitis 08/05/2024 Resolved Ambulatory Problems Diagnosis Date Noted No Resolved Ambulatory Problems Past Medical History: Diagnosis Date 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[facility]) Bledsoe's disease ([facility]) Anemia Chronic kidney disease Essential hypertension Hyperlipidemia Hypertension Iron deficiency anemia 01/27/2023 Stroke ([facility]) SOCIAL HISTORY: Social History Tobacco Use Smoking status: Never Smokeless tobacco: Never Substance Use Topics Alcohol use: Never FAMILY HISTORY: Family History Problem Relation Name Age of Onset Coronary artery disease Neg Hx Cancer Mother Current Outpatient Medications: amLODIPine (NORVASC) 10 mg tablet, Take 1 tablet (10 mg total) by mouth., Disp: , Rfl: atorvastatin (LIPITOR) 40 mg tablet, Take 1 tablet (40 mg total) by mouth daily., Disp: , Rfl: biotin 10 mg tablet, Take by mouth., Disp: , Rfl: carvediloL (COREG) 6.25 mg tablet, Take 1 tablet (6.25 mg total) by mouth., Disp: , Rfl: cholecalciferol (VITAMIN D-3) 50 mcg (2,000 unit) capsule, , Disp: , Rfl: doxycycline (VIBRAMYCIN) 100 mg capsule, Take 1 capsule (100 mg total) by mouth 2 (two) times a day., Disp: 30 capsule, Rfl: 0 empagliflozin (JARDIANCE) 10 mg tablet, Take 1 tablet (10 mg total) by mouth daily., Disp: , Rfl: ferrous sulfate 325 mg (65 mg elemental iron) tablet, Take 1 tablet (325 mg total) by mouth., Disp:, Rfl: folic acid (FOLVITE) 1 mg tablet, , Disp: , Rfl: hydrocortisone (CORTEF) 5 mg tablet, 2 tabs in the morning and 1 in the pm. Dispense 20 extra tablets., Disp: , Rfl: potassium chloride (KLOR-CON) 10 mEq CR tablet, Take 1 tablet (10 mEq total) by mouth., Disp: , Rfl: Trulicity 1.5 mg/0.5 mL pen injector injection, INJECT 1.5 MG into THE SKIN ONCE a WEEK, Disp: , Rfl: valACYclovir (VALTREX) 1 gram tablet, Take 1 tablet (1,000 mg total) by mouth 2 times daily., Disp:30 tablet, Rfl: 0 Allergies Allergen Reactions Penicillins Hives, Other, Shortness of breath, Unknown and Wheezing Levonorgestrel-Ethinyl Estrad Other Runny eyes , runny nose PHYSICAL EXAM: Visit Vitals Smoking Status Never APPEARANCE: Alert and in no acute distress EYES: PERRL, conjunctiva pink and sclera are Normal without icterus ORAL CAVITY: No erythema or exudates NECK: Neck supple, no adenopathy, HEART: RRR with normal S1 and S2, no murmurs, no gallops, no JVD appreciated LUNG: clear to auscultation bilaterally Percussion note normal LYMPH NODES: No palpable superficial adenopathy ABDOMEN: Bowel sounds normoactive, no bruits, soft, non-tender, without organomegaly or palpable masses EXTREMITIES: Extremities warm and well perfused without clubbing, cyanosis, rash or edema NEURO: Oriented X 3, no focal weakness; sensation is normal LABS: Review of Lab results , interpreted Lab Results Component Value Date WBC 6.6 08/05/2024 HGB 11.1 (L) 08/05/2024 HCT 34.0 (L) 08/05/2024 MCV 81.3 08/05/2024 PLT 146 08/05/2024 Lab Results Component Value Date NA 143 08/05/2024 K 3.0 (L) 08/05/2024 CL 110 08/05/2024 CO2 29 08/05/2024 GLUCOSE 114 (H) 08/05/2024 BUN 16 08/05/2024 CREATININE 1.31 (H) 08/05/2024 CALCIUM 9.1 08/05/2024 PROT 6.3 08/05/2024 PROT 6.2 08/05/2024 PROT 6.3 08/05/2024 ALBUMIN 3.8 08/05/2024 BILITOT 0.6 08/05/2024 AST 22 08/05/2024 ALT 52 08/05/2024 ALKPHOS 72 08/05/2024 EGFR 47 (L) 08/05/2024 Serum immunofixation, M spike and IgM level, M spike likely an underestimate Beemer light chains were elevated with increased kappa to lambda light chain ratio SURGICAL PATHOLOGY REPORT Name: SHONA RODRIGUEZ Sex: F Service Date: 06/30/23 Hosp#: [id number] Date Reported: 07/06/23 : 1965 Age: 57 MR#: [id number] Physician: JUAN HEATH MD Location: [facility] BONE MARROW-ASPIRATION, CORE BIOPSY, AND CLOT: - MARKEDLY HYPERCELLULAR MARROW INVOLVED BY B CELL LYMPHOPROLIFERATIVE DISORDER. - FLOW CYTOMETRY CONSISTENT WITH CD5-POSITIVE B-CELL LYMPHOPROLIFERATIVE DISORDER. - SEE COMMENT. Comment: This is a markedly hypercellular marrow (90-95%) with sheets of small B lymphocytes and decreased background trilineage hematopoiesis. E. This case was sent to [facility], [address] [place], [place], for MYD88 Mutation Analysis, and a mutation was detected (see below). Altogether, the morphologic, immunophenotypic, and molecular results are consistent with a diagnosis of lymphoplasmacytic lymphoma. Molecular Genetics MYD88 Mutation Analysis Results: Test Result MYD88 Mutation(s) Detected Mutation(s) Detected c.794T>C (p.L265P) Review of Imaging, interpreted [facility] Diagnostic Imaging Department [address] [place] [address] Patient: SHONA RODRIGUEZ /Age/Sex: 1965 - 57 - F Unit#: [id number] Location/Status: [facility] CLI Mnemonic/Ordering Site: [facility] Ordering Physician: MYRIAM PALUMBO HOG SCRAPER [facility] Diagnostic Digital - 08/14/23933 Report Status:Signed EXAM: [facility] Digital EXAM DATE AND TIME: 08/14/2023 9:34 AM HISTORY: Short-term follow-up probably benign right breast asymmetry/dilated ducts. Previous bilateral excisional breast biopsies, pathology benign. Recent diagnosis of leukemia. COMPARISON: 01/30/23, 08/01/22, 07/02/22, 12/31/18, 12/25/16 TECHNIQUE: Bilateral digital breast tomosynthesis was performed in the CC and MLO projections. Computer aided detection with Cryptmint 7.2-H and Hochy eto 3D 3.1 was employed. TISSUE DENSITY: b: There are scattered areas of fibroglandular density. FINDINGS: No suspicious masses, grouped microcalcifications, or developing architectural distortion are seen. Branching ductal structures along the 12-1 o'clock axis of the right breast remains long-term stable, considered benign. Mild architectural distortion in the lateral retroareolar area of the right breast is unchanged, consistent with surgical scar. Biopsy markers are again seen bilaterally. A few skin calcifications our noted. The vascularity is unremarkable. IMPRESSION: Stable mammographic appearance of the breasts. No evidence of malignancy is seen. A negative mammogram in the presence of a clinically suspicious palpable abnormality does not preclude the possibility of malignancy or alter the indications for biopsy. BI-RADS: Category 2: Benign RECOMMENDATION(S): 1: Routine screening mammogram BILATERAL in 1 year. Dictating Physician: JI CESAR MD Electronically Signed by: JI CESAR MD Dic Date/Time: 08/14/2333 Sign date/Time: 08/14/23934 Review of External Documentation Notes from nephrology, notes from surgery. Tests ordered -CBC-D, CMP, SPEP, IgM level, every 3 months t No orders of the defined types were placed in this encounter. IMPRESSION: 1. 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CMS/HCC) 2. Alpha thalassemia trait 3. Adrenal insufficiency (Bledsoe's disease) (CMS/HCC) 4. 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 Focal activity in infraspinatus muscle, and also pancreatic head 3.2. Will follow-up with PET CT scan after completion of therapy. She completed 4 cycles of rituximab in early 2023 completed 6 treatment cycles with Velcade, last treatment on 06/10/2024 Rituximab plan for 4 cycles initiated completed 3 cycles Will plan to discontinue due to recurrent resistant MRSA infection and cellulitis in several areas of her skin causing abscesses-- Recent treatment included linezolid, mupirocin ointment Hibiclens, and has been advised to continuepreventative measures every 2 weeks per ID -- Patient agrees with the plan to discontinue the last treatment with rituximab --Will plan to monitor every 8 -12 weeks with lab work ordered today Patient doing well after discontinuation of rituximab, M spike down to 0.3, 90% improvement, will plan restaging imaging PET CT scan after the next clinic visit she agrees #2 anemia-multifactorial related to possible bone marrow infiltration, chronic disease, sickle celltrait, alpha thalassemia trait Additional added iron deficiency contributing, agree with plan for iron supplement once a day Lab work from last week reviewed, hemoglobin stabilized no transfusion requirements Recheck lab at 2 to 3-month interval, new Mediport therefore ordered in our lab #3 chronic disease, [id number] with nephrology, latest creatinine continuing to improve on therapy Creatinine remaining stable maintain hydration Next follow-up with client coordinator will be in June #4 Skin rash resolved without recurrence multiple episodes of MRSA resistant infection reviewed #5 infection prophylaxis-okay to discontinue patient was not able to set Ceclor anyway due to side effects #6 peripheral neuropathy-has improved over the last 2 months #7 Diabetes mellitus, patient has now started on insulin per her choice #8 right VIKTORIA aneurysm, incidental, appears to be mild, [facility] Magalie Cain ( Follow-up in 3 months and sooner if new issues patient agrees with this plan Pain Control--no issues Health Care Proxy--no one Juan Vazquez MD Cc LEONCIO Cooper documented in this encounter Plan of Treatment Upcoming Encounters Date Type Department Care Team (Late st Contact Info) Description 10/25/2024 10:15 AM EDT Appointment [facility] Xray [address] [place] [id number] 11/01/2024 9:15 AM EDT Office Visit Orthopedic Surgery - [place] [address] [phone] Goyo Noriega DPStef [address] [address] 12/16/2024 9:15 AM EDT Office Visit [facility] Hematology Oncology [address] [place] [phone] Joyce-Juan Palomo MD [address] [place] [address] documented as of this encounter Visit Diagnoses Diagnosis 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CMS/HCC)- Primary Alpha thalassemia trait Other thalassemia Adrenal insufficiency (Thee's disease) ([facility]/HCC) Glucocorticoid deficiency MRSA cellulitis Cellulitis and abscess of unspecified site documented in this encounter Discontinued Medications Medication Sig Discontinue Reason Start Date End Da te potassium chloride (KLOR-CON) 10 mEq CR tablet Take 1 tablet (10 mEq total) by mouth. Reorder 02/26/2023 09/09/2024 documented as of this encounter Care Teams Cream Cheese Maker Relationship Specialty Start Date End Date Fito Rush PA [facility] [address] [place] [address] PCP - General 07/17/23 documented as of this encounter
--- OUTSIDE RECORDS SUMMARY | 2024-10-04 12:15 | XMS_ITS | Clinical Summary ---
Author Organization [facility] Address [address] [place] [address] Phone Care Team Providers Care Photographic Aide Name Role Phone Fito Rush Primary Care Provider [phone] Allergies Active Allergy Reactions Criticality Noted Date Comments Levonorgestrel-Ethinyl Estrad Other Low 12/11/2023 Runny eyes , runny nose Penicillins Hives,Other,Shortnes s of breath,Unknown,Wheez ing High 04/11/2022 Medications atorvastatin (LIPITOR) 40 mg tablet Take 1 tablet (40 mg total) by mouth daily. 2 Active biotin 10 mg tablet Take by mouth. Active carvediloL (COREG) 6.25 mg tablet Take 1 tablet (6.25 mg total) by mouth. 3 Active cholecalciferol (VITAMIN D-3) 50 mcg (2,000 unit) capsule 3 Active ferrous sulfate 325 mg (65 mg elemental iron) tablet Take 1 tablet (325 mg total) by mouth. 2 Active folic acid (FOLVITE) 1 mg tablet 3 Active hydrocortisone (CORTEF) 5 mg tablet 2 tabs in the morning and 1 in the pm. Dispense 20 extra tablets. 0 Active amLODIPine (NORVASC) 10 mg tablet Take 1 tablet (10 mg total) by mouth. 4 Active doxycycline (VIBRAMYCIN) 100 mg capsule Take 1 capsule (100 mg total) by mouth 2 (two) times a day. 30 capsule 4 Active valACYclovir (VALTREX) 1 gram tablet Take 1 tablet (1,000 mg total) by mouth 2 times daily. 30 tablet 4 Active Trulicity 1.5 mg/0.5 mL pen injector injection INJECT 1.5 MG into THE SKIN ONCE a WEEK 4 Active empagliflozin (JARDIANCE) 10 mg tablet Take 1 tablet (10 mg total) by mouth daily. 4 Active potassium chloride (KLOR-CON) 10 mEq CR tablet Take 1 tablet (10 mEq total) by mouth 2 (two) times a day. 180 tablet 1 5 Active potassium chloride (KLOR-CON) 10 mEq CR tablet Take 1 tablet (10 mEq total) by mouth. 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 Benign hypertensive renal disease 03/25/2023 Alpha thalassemia trait 09/15/2022 Hemoglobinopathy 09/15/2022 Adrenal insufficiency (Thee's disease) 2021 Stage 3b chronic kidney disease 05/02/2022 Encounters Date Type Department Care Team Description 09/09/2024 9:15 AM EST Office Visit Hematology Oncology [address] [place] [phone] Clarisa Sims MD 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[facility]/HCC) (Primary Dx); Alpha thalassemia trait; Adrenal insufficiency (Evans's disease) ([facility]); MRSA cellulitis 08/30/2024 9:00 AM EST Office Visit Orthopedic Surgery - [place] [address] [facility] [address] [place] [phone] Goyo Noriega DPM Poorly controlled type 2 diabetes mellitus with neuropathy ([facility]) (Primary Dx); Hammertoes of both feet; Metatarsalgia of right foot; Pain in toes of both feet; Dermatophytosis, nail 08/05/2024 9:30 AM EST - 08/05/2024 11:59 PM EST Hospital Encounter Infusion Center [address] [facility] 2nd [place] [phone] 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CMS/HCC) (Primary Dx); 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CMS/HCC); Stage 3b chronic kidney disease (CMS/HCC) Discharge Disposition: Home or Self Care 08/05/2024 9:15 AM EST Office Visit Hematology Oncology [address] [place] [phone] [place] Clarisa cruz MD 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[facility]/HCC) (Primary Dx); Stage 3b chronic kidney disease (CMS/HCC); MRSA cellulitis 07/18/2024 Telephone Hematology Oncology [address] [place] [phone] [place] Clarisa cruz MD 07/15/2024 9:30 AM EST - 07/15/2024 11:59 PM EST Hospital Encounter Infusion Center [address] [place] [phone] 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[facility]/HCC) Discharge Disposition: Home or Self Care 07/13/2024 Telephone Hematology Oncology [address] [place] [phone] Fabiolaramonia-Iy Clarisa cruz MD 07/06/2024 9:08 AM EST - 07/06/2024 11:59 PM EST Hospital Encounter Infusion Center [address] [place] [phone] 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[facility]/HCC) Discharge Disposition: Home or Self Care 07/06/2024 8:45 AM EST Office Visit Hematology Oncology [address] [place] [phone] Lia Pendleton MD 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[facility]/HCC) (Primary Dx); Stage 3b chronic kidney disease ([facility]/HCC); IgM monoclonal gammopathy of uncertain significance from Last 3 Months Medical History Medical History Date Comments Essential hypertension DX:Essent ial hypertension Hyperlipidemia DX:Hyperlipidemi a Hypertension DX:Hypertension Abnormality of pituitary gla nd (CMS/HCC) DX: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HCC) Chronic kidney disease DX:Chroni c kidney disease Evans's disease ([facility]/HCC) DX:A ddison's disease (HCC) Stroke (CMS/HCC) DX:Stroke (HCC) Anemia DX:Anemia Iron deficiency anemia 01/27/2023 DX:Iron d eficiency anemia Family History Medical History Relation Name Comments Cancer Mother Coronary artery disease Neg Hx Relation Name Status Comments Mother Social History [...] on file Sexual Orientation Not on file Obstetrics History Last Filed Vital Signs Vital Sign Reading Time Taken Comments Blood Pressure 134/76 09/09/2024 9:17 AM EST Pulse 72 09/09/2024 9:17 AM EST Temperature 36.2 ??C (97.1 ??F) 09/09/2024 9:17 AM ES T Respiratory Rate - - Oxygen Saturation 100% 09/09/2024 9:17 AM EST Inhaled Oxygen Concentration - - Weight 86.6 kg (191 lb) 09/09/2024 9:17 AM EST Height 175.3 cm (5' 9 ) 08/30/2024 9:11 AM EST Body Mass Index 28.21 08/30/2024 9:11 AM EST Plan of Treatment Upcoming Encounters Date Type Department Care Team (Late st Contact Info) Description 10/25/2024 10:15 AM EDT Appointment Xray [address] [place] [phone] 11/01/2024 9:15 AM EDT Office Visit Orthopedic Surgery - [place] [address] [phone] Goyo Noriega DPM [address] [address] 12/16/2024 9:15 AM EDT Office Visit Hematology Oncology [address] [place] [phone] Clarisa Vazquez MD [address] [place] [phone] Health Maintenance Due Date Last Done Comments COVID-19 Vaccine (#1) 1970 Diabetes: Annual Foot Exam 1975 Diabetes: Annual Retina Eye Exam 1975 DTaP,Tdap,and Td Vaccines (1 - Tdap) 1984 Hepatitis B Vaccines (1 of 3 - 19+ 3-dose series) 1984 Pneumococcal Vaccine: 50+ Years (1 of 2 - PCV) 1984 Pneumococcal Vaccine: Pediatrics (0 to 5 Years) and At-Risk Patients (6 to 64 Years) (1 of 2 - PCV) 1984 Zoster Vaccines (1 of 2) 1984 Colorectal Cancer Screening: Colonoscopy 07/13/2022 Social Influencers of Health Screening 07/13/2022 Diabetes: Annual Urine Albumin-Creatinine Ratio (uACR) 03/04/2024 09/18/2022 Influenza Vaccine (#1) 2024 Breast Cancer Screening 07/24/2024 07/24/2022 Diabetes: Blood Sugar Control Test (HGBA1C) 12/13/2024 06/15/2024, 03/12/2023, 03/12/2023 Diabetes: Annual GFR (Glomerular Filtration Rate) 08/05/2025 08/05/2024, 07/06/2024, 07/01/2024, Additional history exists Hypertension/CHF/CAD Annual BMP Blood Test 08/05/2025 08/05/2024, 07/06/2024, 07/01/2024, Additional history exists Depression Screening 08/25/2025 08/25/2024 Cervical Cancer Screening: HPV 05/15/2028 05/15/2023 Cholesterol Screening (Lipid Panel) 06/15/2029 06/15/2024, 06/15/2024, 04/11/2022, Additional history exists RSV Immunization Patients 60+ Years Old (1 - 1-dose 75+ series) 2040 HIV Screening Completed 09/02/2022 Hepatitis C Screening Completed 09/02/2022, 023 HIB Vaccines Aged Out No longer eligi ble based on patient's age to complete this topic HPV Vaccines Aged Out No longer eligi ble based on patient's age to complete this topic Hepatitis A Vaccines Aged Out No long er eligible based on patient's age to complete this topic IPV Vaccines Aged Out No longer eligi ble based on patient's age to complete this topic MMR Vaccines Aged Out No longer eligi ble based on patient's age to complete this topic Meningococcal ACWY Vaccine Aged Out N o longer eligible based on patient's age to complete this topic Meningococcal B Vacine Aged Out No lo nger eligible based on patient's age to complete this topic RSV Immunization Patients Under 20 months Aged Out No longer eligible based on patient's age to complete this topic Varicella Vaccines Aged Out No longer eligible based on patient's age to complete this topic Procedures Procedure Name Priority Date/Time Associated Diagnosis Comments VT IMMUNOFIXATION ELECTROPHORESIS SERUM Routine 08/05/2024 10:03 AM EST 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CMS/HCC) VT PROTEIN ELECTROPHORETIC FRACTIONATION & QUANTITATION SERUM Routine 08/05/2024 10:03 AM EST 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CMS/HCC) Stage 3b chronic kidney disease (CMS/HCC) IMMUNOGLOBULINS IGG, IGA, IGM Routine 08/05/2024 10:03 AM EST 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CMS/HCC) IMMUNOFIXATION ELECTROPHORESIS Routine 08/05/2024 10:03 AM EST 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CMS/HCC) IMMUNOFIXATION ELECTROPHORESIS Routine 08/05/2024 10:03 AM EST 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CMS/HCC) PROTEIN, TOTAL Routine 08/05/2024 10:03 AM EST 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CMS/HCC) Stage 3b chronic kidney disease (CMS/HCC) CBC WITH AUTO DIFFERENTIAL Routine 08/05/2024 10:03 AM EST 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CMS/HCC) Stage 3b chronic kidney disease (CMS/HCC) KAPPA-LAMBDA QUANTITATIVE FREE LIGHT CHAINS Routine 08/05/2024 10:03 AM EST 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CMS/HCC) Stage 3b chronic kidney disease (CMS/HCC) CBC AND DIFFERENTIAL Routine 08/05/2024 10:03 AM EST 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CMS/HCC) Stage 3b chronic kidney disease (CMS/HCC) COMPREHENSIVE METABOLIC PANEL Routine 08/05/2024 10:03 AM EST 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CMS/HCC) Stage 3b chronic kidney disease (CMS/HCC) LACTATE DEHYDROGENASE Routine 08/05/2024 10:03 AM EST 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CMS/HCC) Stage 3b chronic kidney disease (CMS/HCC) PROTEIN ELECTROPHORESIS, SERUM Routine 08/05/2024 10:03 AM EST 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CMS/HCC) Stage 3b chronic kidney disease (CMS/HCC) CBC WITH AUTO DIFFERENTIAL Routine 07/06/2024 9:33 AM EST 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CMS/HCC) COMPREHENSIVE METABOLIC PANEL Routine 07/06/2024 9:33 AM EST 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CMS/HCC) CBC AND DIFFERENTIAL Routine 07/06/2024 9:33 AM EST 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CMS/HCC) HM HPV Routine 05/15/2023 HEMOGLOBIN A1C Routine 03/12/2023 HM URINE ALBUMIN CREATININE RATIO Routine 09/18/2022 HM HEPATITIS C SCREENING Routine 09/02/2022 HM HIV SCREENING Routine 09/02/2022 ANITA SCREENING DIGITAL Routine 07/24/2022 8:32 AM EST Encounter for screening mammogram for malignant neoplasm of breast LIPID PANEL Routine 04/11/2022 from Last 3 Months or Most Recently Relevant to Health Maintenance Results * Pathologist Review Immunofixation (08/05/2024 10:03 AM EST) Pathologist Interpretation Reviewed by Marianela Bautista MD 08/15/2024 2:11 PM EST [facility] Blood Venous blood specimen / Unknown Venipuncture / Unknown 08/05/2024 10:03 AM EST 08/05/2024 10:45 AM EST Clarisa Vazquez MD LAB BLOOD ORDERABLE S Final Result [facility] [address] [place] [address], [place] [phone] * PATHOLOGIST REVIEW PROTEIN ELECTROPHORESIS (08/05/2024 10:03 AM EST) Pathologist Interpretation Reviewed by Marianela Bautista MD 08/15/2024 2:13 PM EST [facility] Blood Venous blood specimen / Unknown Venipuncture / Unknown 08/05/2024 10:03 AM EST 08/05/2024 10:45 AM EST Clarisa Vazquez MD LAB BLOOD ORDERABLE S Final Result [facility] [address] [place] [address], [place] [phone] * (ABNORMAL) [place]eshkoro-lambda free light chains, quantitative (08/05/2024 10:03 AM EST) [place] Free Light Chain 3.04(H) 0.33 - 1.94 mg/dL 08/08/2024 2:02 PM EST [facility] Lambda Free Light Chain 0.45(L) 0.57 - 2.63 mg/dL 08/08/2024 2:02 PM EST [facility] [place]/Lambda FLC Ratio 6.76(H) 0.26 - 1.65 08/08/2024 2:02 PM EST [facility] Comment: Test performed at [facility], [address], [place], [place] ??[address] ? [phone] Gabriella Randall MD, PhD - Executive Sales Assistant Blood Venous blood specimen / Unknown Venipuncture / Unknown 08/05/2024 10:03 AM EST 08/05/2024 10:45 AM EST Subramony Taylor BANKS LAB BLOOD ORDERABLE S Final Result [facility] [address] [place] [address] * (ABNORMAL) CBC auto differential (08/05/2024 10:03 AM EST) Only the most recent of2 resultswithin the time period is included. WBC 6.6 4.8 - 10.8 K/mcL LAB HEMETOLOGY METHOD 08/05/2024 10:51 AM [facility] RBC 4.20 3.80 - 4.80 M/mcL LAB HEMETOLOGY METHOD 08/05/2024 10:51 AM [facility] Hemoglobin 11.1(L) 11.5 - 16.0 g/dL LAB HEMETOLOGY METHOD 08/05/2024 10:51 AM [facility] Hematocrit 34.0(L) 35.0 - 47.0 % LAB HEMETOLOGY METHOD 08/05/2024 10:51 AM [facility] MCV 81.3 79.0 - 98.0 FL LAB HEMETOLOGY METHOD 08/05/2024 10:51 AM [facility] MCH 26.6(L) 27.0 - 32.0 pcg LAB HEMETOLOGY METHOD 08/05/2024 10:51 AM [facility] MCHC 32.6 32.0 - 37.0 g/dL LAB HEMETOLOGY METHOD 08/05/2024 10:51 AM [facility] RDW 14.6 11.0 - 15.0 % LAB HEMETOLOGY METHOD 08/05/2024 10:51 AM [facility] Platelets 146 130 - 400 K/mcL LAB HEMETOLOGY METHOD 08/05/2024 10:51 AM [facility] MPV 11.4(H) 7.0 - 11.0 FL LAB HEMETOLOGY METHOD 08/05/2024 10:51 AM [facility] NRBC 0.0 <1.0 % LAB HEMETOLOGY METHOD 08/05/2024 10:51 AM [facility] NRBC Absolute 0.00 <0.10 K/mcL LAB HEMETOLOGY METHOD 08/05/2024 10:51 AM [facility] Neutrophils Relative 67.1 % LAB HEMETOLOGY METHOD 08/05/2024 10:51 AM [facility] Lymphocytes Relative 21.9 % LAB HEMETOLOGY METHOD 08/05/2024 10:51 AM [facility] Monocytes Relative 10.0 % LAB HEMETOLOGY METHOD 08/05/2024 10:51 AM [facility] Eosinophils Relative 0.2 % LAB HEMETOLOGY METHOD 08/05/2024 10:51 AM [facility] Basophils Relative 0.5 % LAB HEMETOLOGY METHOD 08/05/2024 10:51 AM [facility] Immature Granulocytes Relative 0.3 % LAB HEMETOLOGY METHOD 08/05/2024 10:51 AM [facility] Neutrophils Absolute 4.41 1.50 - 7.00 K/mcL LAB HEMETOLOGY METHOD 08/05/2024 10:51 AM [facility] Lymphocytes Absolute 1.44 1.00 - 5.00 K/mcL LAB HEMETOLOGY METHOD 08/05/2024 10:51 AM [facility] Monocytes Absolute 0.66 0.20 - 1.00 K/mcL LAB HEMETOLOGY METHOD 08/05/2024 10:51 AM EST [facility] Eosinophils Absolute 0.01 0.00 - 0.50 K/[facility] LAB HEMETOLOGY METHOD 08/05/2024 10:51 AM EST [facility] Basophils Absolute 0.03 0.00 - 0.20 K/[facility] LAB HEMETOLOGY METHOD 08/05/2024 10:51 AM EST [facility] Immature Granulocytes Absolute 0.02 0.00 - 0.03 K/[facility] LAB HEMETOLOGY METHOD 08/05/2024 10:51 AM EST [facility] Blood Venous blood specimen / Unknown Venipuncture / Unknown 08/05/2024 10:03 AM EST 08/05/2024 10:45 AM EST us Clarisa Vazquez MD LAB BLOOD ORDERABLE S Final Result Performing Organization Address City/[facility]/ZIP Co de Phone Number [facility] [address] [place] [address], [place] [phone] * Immunofixation electrophoresis serum (08/05/2024 10:03 AM EST) [facility] Immunofixation Result, Serum Igm kappa monoclonal immunoglobulins detected. LAB CHEMISTRY METHOD 08/15/2024 2:11 PM EST [facility] Blood Venous blood specimen / Unknown Venipuncture / Unknown 08/05/2024 10:03 AM EST 08/05/2024 10:45 AM EST Clarisa Vazquez MD LAB BLOOD ORDERABLE S Final Result Performing Organization Address City/[facility]/ZIP Co de Phone Number [facility] [address] [place] [address], [place] [phone] * (ABNORMAL) Immunoglobulins IgG, IgA, IgM (08/05/2024 10:03 AM EST) Total IgG 308(L) 549 - 1,584 mg/dL LAB CHEMISTRY METHOD 08/12/2024 2:33 PM [facility] IgA 37(L) 61 - 348 mg/dL LAB CHEMISTRY METHOD 08/12/2024 2:33 PM [facility] IgM 296(H) 23 - 259 mg/dL LAB CHEMISTRY METHOD 08/12/2024 2:33 PM [facility] Blood Venous blood specimen / Unknown Venipuncture / Unknown 08/05/2024 10:03 AM EST 08/05/2024 10:45 AM EST Clarisa Vazquez MD LAB BLOOD ORDERABLE S Final Result [facility] [address] [place] [address], * (ABNORMAL) Protein electrophoresis, serum (08/05/2024 10:03 AM EST) Pathologist [facility] Total Protein 6.3 6.0 - 8.0 g/dL LAB CHEMISTRY METHOD 08/15/2024 2:13 PM [facility] Albumin, Serum 3.7 2.9 - 4.1 g/dL LAB CHEMISTRY METHOD 08/15/2024 2:13 PM [facility] Alpha 1 Globulin (g/dL) 0.2 0.1 - 0.5 g/dL LAB CHEMISTRY METHOD 08/15/2024 2:13 PM [facility] Alpha 2 Globulin (g/dL) 1.1 0.7 - 1.5 g/dL LAB CHEMISTRY METHOD 08/15/2024 2:13 PM [facility] Beta (g/dL) 0.7 0.7 - 1.5 g/dL LAB CHEMISTRY METHOD 08/15/2024 2:13 PM [facility] Gamma Globulin (g/dL) 0.6(L) 0.7 - 1.9 g/dL LAB CHEMISTRY METHOD 08/15/2024 2:13 PM [facility] PARAPROTEIN 0.3 g/dL LAB CHEMISTRY METHOD 08/15/2024 2:13 PM [facility] SPEP Interpretation Monoclonal gammopathy Abnormal pattern with M-spike of gamma globulin mobility. Serum Immunofixation performed on this specimen demonstrated IgM [place] monoclonal protein. LAB CHEMISTRY METHOD 08/15/2024 2:13 PM [facility] Blood Venous blood specimen / Unknown Venipuncture / Unknown 08/05/2024 10:03 AM EST 08/05/2024 10:45 AM EST Subjuanis Vazquez MD LAB BLOOD ORDERABLE S Final Result Performing Organization Address [facility]/ZIP Co de Phone Number [facility] [address] [place] [address], [place] [phone] * Protein, total (08/05/2024 10:03 AM EST) Total Protein 6.3 6.0 - 8.0 g/dL LAB CHEMISTRY METHOD 08/05/2024 11:20 AM [facility] Blood Venous blood specimen / Unknown Venipuncture / Unknown 08/05/2024 10:03 AM EST 08/05/2024 10:45 AM EST us Subramarmando Vazquez MD LAB BLOOD ORDERABLE S Final Result Performing Organization Address [facility]/ZIP Co de Phone Number [facility] [address] [place] [address], [place] [phone] * (ABNORMAL) Lactate dehydrogenase (08/05/2024 10:03 AM EST) LDH 256(H) 120 - 246 unit/L LAB CHEMISTRY METHOD 08/05/2024 11:21 AM [facility] Blood Venous blood specimen / Unknown Venipuncture / Unknown 08/05/2024 10:03 AM EST 08/05/2024 10:45 AM EST Clarisa Vazquez MD LAB BLOOD ORDERABLE S Final Result [facility] [address] [place] [address], * (ABNORMAL) Comprehensive metabolic panel (08/05/2024 10:03 AM EST) Only the most recent of2 resultswithin the time period is included. Sodium 143 133 - 145 mmol/L LAB CHEMISTRY METHOD 08/05/2024 11:21 AM [facility] Potassium 3.0(L) 3.5 - 5.5 mmol/L LAB CHEMISTRY METHOD 08/05/2024 11:21 AM [facility] Chloride 110 96 - 110 mmol/L LAB CHEMISTRY METHOD 08/05/2024 11:21 AM [facility] CO2 29 21 - 32 mmol/L LAB CHEMISTRY METHOD 08/05/2024 11:21 AM [facility] Anion Gap 4 3 - 11 LAB CHEMISTRY METHOD 08/05/2024 11:21 AM [facility] Glucose 114(H) 70 - 100 mg/dL LAB CHEMISTRY METHOD 08/05/2024 11:21 AM [facility] BUN 16 5 - 25 mg/dL LAB CHEMISTRY METHOD 08/05/2024 11:21 AM [facility] Creatinine 1.31(H) 0.50 - 1.10 mg/dL LAB CHEMISTRY METHOD 08/05/2024 11:21 AM [facility] eGFR 47(L) >=60 mL/min/1. 73m2 LAB CHEMISTRY METHOD 08/05/2024 11:21 AM [facility] Comment:Calculation based on the??Chronic Kidney Disease Epidemiology Collaboration (CKD-EPI) equation refit??without adjustment for race. BUN/Creatinine Ratio 12.2 LAB CHEMISTRY METHOD 08/05/2024 11:21 AM [facility] Calcium 9.1 8.5 - 10.5 mg/dL LAB CHEMISTRY METHOD 08/05/2024 11:21 AM [facility] AST (SGOT) 22 10 - 42 unit/L LAB CHEMISTRY METHOD 08/05/2024 11:21 AM [facility] ALT (SGPT) 52 10 - 60 unit/L LAB CHEMISTRY METHOD 08/05/2024 11:21 AM [facility] Alkaline Phosphatase 72 42 - 121 unit/L LAB CHEMISTRY METHOD 08/05/2024 11:21 AM [facility] Total Protein 6.2 6.0 - 8.0 g/dL LAB CHEMISTRY METHOD 08/05/2024 11:21 AM [facility] Albumin 3.8 3.2 - 5.0 g/dL LAB CHEMISTRY METHOD 08/05/2024 11:21 AM [facility] Total Bilirubin 0.6 0.0 - 1.4 mg/dL LAB CHEMISTRY METHOD 08/05/2024 11:21 AM [facility] Blood Venous blood specimen / Unknown Venipuncture / Unknown 08/05/2024 10:03 AM EST 08/05/2024 10:45 AM EST Clarisa Vazquez MD LAB BLOOD ORDERABLE S Final Result [facility] [address] [place] [address], [place] [phone] * Cervical Cancer Screening: HPV (05/15/2023) Pathologist [facility] Cervical Cancer Screening: HPV Abstracted, No interpretation Historical Provider HEALTH MAINTENANCE Final Result * Hemoglobin A1c (03/12/2023) Pathologist [facility] Hemoglobin A1C 0.0 % Comment:No interpretation Blood Venous blood specimen / Unknown Historical Provider LAB BLOOD ORDERABLES Mai l Result * Urine Albumin Creatinine Ratio (09/18/2022) Pathologist [facility] Urine Albumin Creatinine Ratio Abstracted Historical Provider HEALTH MAINTENANCE Final Result * HIV Screening (09/02/2022) [facility] HIV Screening Abstracted Historical Provider HEALTH MAINTENANCE Final Result * Hepatitis C Screening (09/02/2022) [facility] Hepatitis C Screening Abstracted Historical Provider HEALTH MAINTENANCE Final Result * ANITA SCREENING DIGITAL (07/24/2022 8:32 AM EST) Anatomical Region Laterality Modality Mammography 07/02/2022 3:14 PM EST Narrative 07/24/2022 8:[address] [facility] Diagnostic Imaging Department [address] [place], [place] [id number] Patient: ??SHONA RODRIGUEZ ?/Age/Sex: 1965 - 56 - F Unit#: ??[id number] ? Location/Status: ??SPDIMAM/REG CLI ? Mnemonic/Ordering Site: ??DIGSC/SPMAM Ordering Physician: ??WILLIAMS MOSS MD [facility] Screening Digital - 07/02/22 - 1614 EXAM: [facility] Screening Digital EXAM DATE AND TIME: 07/02/2022 4:14 PM HISTORY: ??Screening. Excisional biopsy of the right breast in 2013 and bilateral ultrasound-guided core biopsies in 2012, pathology benign. COMPARISON: ??Previous mammograms from [facility] have been requested but have not been received as of this date. When these arrive, an addendum to this report will be issued. TECHNIQUE: CC and MLO views of both breasts were obtained using full field digital mammography. Bilateral digital breast tomosynthesis was performed in the MLO projection. Computer aided detection with [employer] 7.2-H and [employer] 3D 3.1 was employed. TISSUE DENSITY: b. There are scattered areas of fibroglandular density. FINDINGS: A lobulated, linear branching structure, approximately 6 cm in length, is visualized in the 12:00 position of the right breast, extending from the retroareolar area to the midportion of the breast, possibly a dilated duct. CC tomosynthesis views are recommended for further assessment, with targeted ultrasound to follow if appropriate based on the additional views. No grouped microcalcifications or areas of architectural distortion are seen. A biopsy marker is seen in each breast. There are rare benign calcifications. Skin calcifications are noted. The vascularity is unremarkable. IMPRESSION: 1. Right breast branching structure, possibly a dilated duct, for which additional views are recommended. The patient will be called back. 2. No mammographic evidence of malignancy is seen in the left breast. BI-RADS: ??Category 0: Incomplete - Need Additional Imaging Evaluation RECOMMENDATION(S): 1: Special mammographic view(s) needed RIGHT [id number], [id number] 3340F, 7025F Dictating Physician: ??ANA FARAH MD Electronically Signed by: ??ANA FARAH MD Dic Date/Time: ??07/24/22 0756 Sign date/Time: ??07/24/22 0832 Procedure Note Ana Farah MD - 09/11/2023 [facility] Diagnostic Imaging Department [address] [place] [id number] Patient: SHONA RODRIGUEZ /Age/Sex: 1965 - 56 - F Unit#: [id number] Location/Status: SPDIMAM/REG CLI Mnemonic/Ordering Site: [facility] Ordering Physician: WILLIAMS MOSS MD Anita Screening Digital - 07/02/22 - 1614 EXAM: [facility] Screening Digital EXAM DATE AND TIME: 07/02/2022 4:14 PM HISTORY: Screening. Excisional biopsy of the right breast in 2013 and bilateral ultrasound-guided core biopsies in 2012, pathology benign. COMPARISON: Previous mammograms from [facility] have been requestedbut have not been received as of this date. When these arrive, an addendum tothis report will be issued. TECHNIQUE: CC and MLO views of both breasts were obtained using fullfield digital mammography. Bilateral digital breast tomosynthesis was performedin the MLO projection. Computer aided detection with [employer] 7.2-H and[employer] 3D 3.1 was employed. TISSUE DENSITY: b. There are scattered areas of fibroglandular density. FINDINGS: A lobulated, linear branching structure, approximately 6 cm in length,is visualized in the 12:00 position of the right breast, extending from the retroareolar area to the midportion of the breast, possibly a dilatedduct. CC tomosynthesis views are recommended for further assessment, withtargeted ultrasound to follow if appropriate based on the additional views. No grouped microcalcifications or areas of architectural distortion areseen. A biopsy marker is seen in each breast. There are rare benigncalcifications. Skin calcifications are noted. The vascularity is unremarkable. IMPRESSION: 1. Right breast branching structure, possibly a dilated duct, for which additional views are recommended. The patient will be called back. 2. No mammographic evidence of malignancy is seen in the left breast. BI-RADS: Category 0: Incomplete - Need Additional Imaging Evaluation RECOMMENDATION(S): 1: Special mammographic view(s) needed RIGHT [id number], [id number] 3340F, 7025F Dictating Physician: ANA FARAH MD Electronically Signed by: ANA FARAH MD Dic Date/Time: 07/24/22 0756 Sign date/Time: 07/24/22 0832 Williams Moss MD IMG BI PROCEDURES Final Result * Lipid panel (04/11/2022) Triglycerides 0 mg/dL Comment:No interpretation Cholesterol 0 mg/dL Comment:No interpretation HDL 0 mg/dL Comment:No interpretation LDL Cholesterol 0 mg/dL Comment:No interpretation Blood Venous blood specimen / Unknown Historical Provider LAB BLOOD ORDERABLES Mai l Result from Last 3 Months or Most Recently Relevant to Health Maintenance Insurance MEDICAID - [place] Care Teams Photographic Aide Relationship Specialty Start Date End Date Fito Rush PA NPI: [id number] [place], [place] [address] [place] [address] PCP - General 07/17/23
--- OUTSIDE RECORDS SUMMARY | 2024-10-04 12:15 | XMS_ITS | Encounter Summary ---
Author Organization [facility] Address [id number] [place] [id number] Care Team Providers Care Supervisor Grower Name Role Phone Fito Rush Primary Care Provider [phone] Encounter Details Date Type Department Care Team (Late st Contact Info) Description 05/13/2024 9:15 AM EDT Hospital Encounter TH HISTORIC ENCOUNTERS [facility]AST[facility] CONVERSION ONLY Clarisa Vazquez MD [address] [place] [phone] Social History Tobacco Use Types Packs/Day Years [...] Info) Description 10/25/2024 10:15 AM EDT Appointment [facility] Xray [address] [place] [phone] 11/01/2024 9:15 AM EDT Office Visit Orthopedic Surgery - [place] [address] [phone] Goyo Noriega DPM [address] [address] 12/16/2024 9:15 AM EDT Office Visit [facility] Hematology Oncology [address] [place] [phone] Clarisa Vazquez MD [address] [place] [phone] documented as of this encounter Visit Diagnoses Not on filedocumented in this encounter Care Teams Supervisor Grower Relationship Specialty Start Date End Date Fito Rush PA [facility] [address] [place] [address] PCP - General 07/17/23 documented as of this encounter
--- OUTSIDE RECORDS SUMMARY | 2024-10-04 12:16 | XMS_ITS | Encounter Summary ---
Author Organization [facility] Address [address] [place] [phone] Care Team Providers Care Senior Technical Program Manager Name Role Phone Fito Rush Primary Care Provider [phone] Encounter Details Date Type Department Care Team (Latest Contact Info) Description 06/10/2024 9:30 AM EDT Hospital Encounter TH HISTORIC ENCOUNTERS [facility]AST[facility] CONVERSION ONLY Small cell B-cell lymphoma, unspecified site (CMS/HCC) Social History Tobacco Use Types Packs/Day Years [...] tells this RN I'm not going to [place] for my eyes until I see dr. Palomo She states she saw md last week who thought we could handle this here she states he told her she has to go to [place] but patient has ride issues and states [...] Info) Description 10/25/2024 10:15 AM EDT Appointment [facility] Xray [address] [place] [phone] 11/01/2024 9:15 AM EDT Office Visit Orthopedic Surgery - [place] [address] [phone] Goyo Noriega, DPM [address] [address] 12/16/2024 9:15 AM EDT Office Visit [facility] Hematology Oncology [address] [place] [phone] Joyce-Clarisa Palomo MD [address] [place] [phone] documented as of this encounter Visit Diagnoses Diagnosis Small cell B-cell lymphoma, unspecified site (CMS/HCC) documented in this encounter Care Teams Senior Technical Program Manager Relationship Specialty Start Date End Date Fito Rush PA [facility] [address] [place] [address] PCP - General 07/17/23 documented as of this encounter
--- OUTSIDE RECORDS SUMMARY | 2024-10-04 12:16 | XMS_ITS | Clinical Summary ---
Author Organization [facility] Address [address] [place] [address] Care Team Providers Care Metal Trimmer Name Role Phone Matt Curtis [facility] Primary Care Provider [phone] Source Comments PLEASE NOTE, if this patient is a minor, it may be UNLAWFUL to discuss sensitive information that is contained in these records (such as FAMILY PLANNING, MENTAL HEALTH or SUBSTANCE ABUSE) with the minor patient's parent or other person without the patient's specific authorization.[facility] Allergies Active Allergy Reactions Criticality Noted Date Comments Ampicillin Unknown 03/25/2023 Penicillins Hives,SOB High 04/11/2022 Medications gabapentin (NEURONTIN) 300 mg capsuleIndication s:Tingling of left upper extremity Take 1 Capsule by mouth 2 (two) times daily 60 Capsule 1 023 Active cholecalciferol (VITAMIN D-3) 50 mcg (2,000 unit) capsuleIndication s:Microcytic anemia Take 1 Capsule by mouth once daily 30 Capsule 2 023 Active folic acid (FOLVITE) 1 mg tabletIndications :Microcytic anemia Take 1 Tablet by mouth once daily 90 Tablet 1 023 Active FREESTYLE LITE STRIPS strips 023 Active docusate sodium (COLACE) 100 mg capsule 023 Active SOLU-CORTEF 100 mg solr 100MG INTRAMUSCULAR ONCE FOR ADRENAL CRISIS 023 Active FREESTYLE LANCETS 28 gauge 023 Active levothyroxine (SYNTHROID, LEVOXYL) 25 mcg tablet 023 Active lancets 28 gauge Freestyle lite lancets, See Instructions, # 100 each, Refills 11, Tot. Refills 11, Maintenance, use to check bld glucose 3 times daily E11.9, 02/11/23 12:10:00 EDT, Supply, 175.26, cm, 01/26/23 16:16:00 EDT, Height 023 Active blood-glucose meter (FREESTYLE LITE METER) monitoring kit Freestyle Lite meter, See Instructions, # 1 each, Refills 0, Tot. Refills 0, Maintenance, use to check bld glucose 3 times daily E11.9, 02/11/23 12:09:00 EDT, Supply, 175.26, cm, 01/26/23 16:16:00 EDT, Height 023 Active erythromycin (ROMYCIN) 5 mg/gram (0.5 %) ophthalmic ointmentIndicatio ns:Acute conjunctivitis of both eyes, unspecified acute conjunctivitis type Place 0.5 Inches into both eyes 4 (four) times daily 3.5 g 023 Active lidocaine (LIDOCAINE VISCOUS) 2 % solutionIndicatio ns:Mouth sores Pt self mix 5ml with benadryl and maalox and place on gums with q-tip every 4 hours as needed for pain 100 mL 1 023 Active diphenhydrAMINE (BENADRYL) 12.5 mg/5 mL liquidIndications :Mouth sores Pt self mix 5ml with lidocaine and maalox and place on gums with q-tip every 4 hours as needed for adams 180 mL 1 023 Active alum-mag hydroxide-simeth (MAALOX MAX) 400-400-40 mg/5 mL suspensionIndicat ions:Mouth sores Pt to self mix 5ml with benadryl and lidocaine and place on gums with q-tip every 4 hours as needed for adams 100 mL 1 023 Active hydrocortisone (CORTEF) 5 mg tablet 2 tabs in the morning and 1 in the pm. Dispense 20 extra tablets. 290 Tablet 024 Active MISCELLANEOUS MEDICAL SUPPLY MISCIndications:C hronic wound Please provide 1 roll of InterDry- Silver moisture wicking fabric. Apply once piece to affected area daily. 1 Each 1 024 Active lidocaine (LIDODERM) 5 % patch Place 1 Patch onto the skin once daily (every 24 hours) 30 Patch 1 024 Active fluticasone (FLONASE) 50 mcg/actuation nasal spray Place 1 Steele in both nostrils once daily 48 g 024 Active atorvastatin (LIPITOR) 40 mg tabletIndications :History of stroke Take 1 Tablet by mouth once daily 90 Tablet 1 024 Active silver sulfADIAZINE (SILVADENE) 1 % creamIndications: Abdominal wall abscess Apply topically once daily 50 g 1 024 Active chlorhexidine gluconate (HIBICLENS) 4 % external liquidIndications :Abdominal wall abscess Apply to skin once daily 473 mL 2 024 Active FEROSUL 325 mg (65 mg iron) tabletIndications :Anemia, unspecified type Take 1 Tablet by mouth 2 (two) times daily with a meal 180 Tablet 1 024 Active triamcinolone (KENALOG) 0.1 % creamIndications: Chronic dermatitis of hands Apply topically 2 (two) times daily 454 g 1 024 Active amLODIPine (NORVASC) 10 mg tablet Take 1 Tablet by mouth once daily for 90 days 90 Tablet 1 024 Active acetaminophen (TYLENOL) 500 mg tabletIndications :Abscess Take 2 Tablets by mouth every 6 (six) hours as needed for pain 500 Tablet 024 Active empagliflozin (JARDIANCE) 10 mg tabIndications:In adequately controlled diabetes mellitus ([facility]) Take 1 Tablet by mouth daily. 30 Tablet 2 024 Active semaglutide (RYBELSUS) 7 mg tabIndications:In adequately controlled diabetes mellitus (HCC-CMS) Take 1 Tablet by mouth every morning before breakfast 30 Tablet 5 024 Active traMADoL (ULTRAM) 50 mg tabletIndications :Atypical chest pain Take 1 Tablet by mouth 3 (three) times daily as needed for pain 30 Tablet 024 Active carvediloL (COREG) 6.25 mg tabletIndications :Essential hypertension Take 1 Tablet by mouth 2 (two) times daily with a meal 180 Tablet 025 Active mirabegron ER (MYRBETRIQ) 25 mg [id number] veractive bladder Take 1 Tablet by mouth nightly at bedtime 30 Tablet 2 01/12/ 023 2024 Discontinued(C ancelled) carvediloL (COREG) 6.25 mg tabletIndications :Essential hypertension Take 1 Tablet by mouth 2 (two) times daily with a meal 180 Tablet 024 2024 Discontinued Active Problems Problem Noted Date Diagnosed Date Inadequately controlled diabetes mellitus (HCC-C MS) 07/22/2024 Brain aneurysm 05/09/2024 Overview (05/09/2024): Apr 2024 [facility]: Incidental intracranial aneurysm: Ms. Zarate is a 58-year-old woman found to have a small 1.5 mm outpouching along the lateral aspect of the origin of the right A1 segment found on CT angiography done recently. I have reviewed the images with the patient. 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 The right VIKTORIA is supplied by flow across the anterior communicating artery. At the origin of the right A2 segment there is a laterally projecting outpouching measuring approximately 1.5 mm which could represent a small aneurysm. I have discussed with the patient the natural history of brain aneurysms including the potential risk for rupture, which would likely present with acute onset thunderclap headache at which point she should seek immediate medical attention. I discussed with her the various management options including conservative management with annual screening MRA, open surgical clipping as well as endovascular embolization. In view of the small size of this aneurysm and the patient's other comorbidities I would suggest conservative management for this aneurysm. Patient appeared to be concurrent. Also advised family screening for brain aneurysms. 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 Prediabetes 04/27/2023 Sickle cell trait ([facility]) 01/13/2023 Overactive bladder 01/13/2023 Iron deficiency anemia 09/15/2022 Alpha thalassemia trait 09/15/2022 12/25/19 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[facility]) 09/15/202212/24 Stage 3b chronic kidney disease ([facility]) 2021 Adrenal insufficiency ([place]'s disease) ([facility]) 05/02/2022 History of stroke 05/02/2022 Overview (05/02/2022): Thalamic infarct [facility] 2019 Essential hypertension 04/23/2022 Other hyperlipidemia 04/23/2022 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[facility]) 022 Overview (04/23/2022): On penitentiary use of prednisone due to this Encounters Date Type Department Care Team Description 09/05/2024 10:40 AM EST Office Visit [facility] [address] [place] [address] Gita Ordonez DO Urge urinary incontinence (Primary Dx); Poorly controlled type 2 diabetes mellitus ([facility]) 08/25/2024 10:40 AM EST Office Visit [address] [phone] Matt Curtis FNP Atypical chest pain (Primary Dx); Stage 3b chronic kidney disease ([facility]); Inadequately controlled diabetes mellitus ([facility]); History of Jose's gangrene; Essential hypertension; 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[facility]) 08/25/2024 Travel 08/22/2024 9:00 AM EST Office Visit [facility] [address] [place] [phone] Paulina Beckford Encounter for dental examination (Primary Dx) 08/22/2024 Travel 08/04/2024 Interim Notes [address] [phone] Krystal Vasquez [place] 07/27/2024 3:40 PM EST Office Visit [address] [phone] Matt Curtis, JORI MRSA colonization (Primary Dx); Atypical chest pain; Inadequately controlled diabetes mellitus ([facility]) 07/27/2024 Travel 07/14/2024 10:40 AM EST Office Visit [address] [phone] Child, FEMI Rdz Abscess 07/14/2024 Travel 07/04/2024 1:20 PM EST Office Visit [address] [phone] Child FEMI Rdz Abscess (Primary Dx) 07/04/2024 Travel from Last 3 Months Social History Tobacco Use Types Packs/Day Years Used Date Smoking Tobacco: Never Passive Smoke Exposure: Never Smokeless Tobacco: Never Tobacco Cessation:Counseling Given: Not Answered Alcohol Use Standard Drinks/Week Comments Not Currently 0 (1 standard drink = 0.6 oz pur e alcohol) Social Connections Answer Date Recorded Connectedness 1 08/25/2024 Financial Resource Strain Answer Date R ecorded Financial Resource Strain 1 2024 Stress Answer Date Recorded Stress 1 08/25/2024 Physical Activity Answer Date Recorded Physical Activity 0 04/11/2022 Food Insecurity Answer Date Recorded Food 1 08/25/2024 Transportation Needs Answer Date Record ed Transportation 1 08/25/2024 Housing Stability Answer Date Recorded Housing 1 08/25/2024 Safety and Environment Answer Date Sincere rded Safety 0 04/11/2022 Utilities Answer Date Recorded Utilities 1 08/25/2024 Employment Answer Date Recorded Stress 0 02/13/2023 Comments No Sex and Gender Information Value Date Recorded Sex Assigned at Female 04/11/2022 11:15 AM PDT Legal Sex Female 6:38 AM PDT Gender Identity Female 04/11/2022 11:15 AM PDT Sexual Orientation Straight 04/11/2022 11 :15 AM PDT Last Filed Vital Signs Vital Sign Reading Time Taken Comments Blood Pressure 127/80 09/05/2024 11:04 AM EST Pulse 86 09/05/2024 11:04 AM EST Temperature 36.7 ??C (98 ??F) 08/25/2024 10:48 AM EST Respiratory Rate 16 09/05/2024 11:04 AM EST Oxygen Saturation 100% 09/05/2024 11:04 AM EST Inhaled Oxygen Concentration - - Weight 84.4 kg (186 lb) 09/05/2024 11:04 AM EST Height 175.9 cm (5' 9.25 ) 09/05/2024 11:04 AM E Body Mass Index 27.27 09/05/2024 11:04 AM EST Plan of Treatment Upcoming Encounters Date Type Department Care Team (Late st Contact Info) Description 10/10/2024 10:00 AM EST / Visits [facility] [address] [place] [phone] Pedro Cordero LCSW [address] [place] [address] 11/29/2024 9:40 AM EDT Office Visit [facility] [address] [place] [phone] Matt Curtis FNP [address] [place] [address] 12/15/2024 8:40 AM EDT Office Visit [facility] [address] [place] [phone] Gita Ordonez DO [address] [place] [address] Health Maintenance Due Date Last Done Comments Diabetes Foot Exam 1965 Diabetes Microalbumin (w/Creatinine) 1965 HPV Screening 1965 Urine Drug Screen 1965 [id number] (#1) 1970 Retinopathy Screening 1978 Imm-DTaP/Tdap/Td (1 - Tdap) 1984 Imm-Hepatitis B (1 of 3 - 19 + 3-dose series) 1984 Imm-Pneumococcal (1 of 2 - PCV) 1984 Imm-Zoster, Recombinant (1 of 2) 1984 CT Colonography 2010 Colonoscopy 2010 Colorectal Cancer Screening 2010 FIT/gFOBT 2010 Fecal DNA 2010 Flexible Sigmoidoscopy 2010 Annual Preventive Care Visit 06/16/2023 06/16/2022 Breast Cancer Screening (Mammogram) 02/12/2024 08/14/2023, 01/30/2023, 08/01/2022, Additional history exists TSH Monitoring 02/25/2024 02/24/2023 Imm-Influenza (#1) 2024 Diabetes HbA1c 09/15/2024 06/15/2024, 08/0 10/2022, 03/12/2023, Additional history exists Depression Monitoring 11/23/2024 08/25/2024 , 05/26/2024, 05/19/2024, Additional history exists Dental BW 02/10/2025 02/09/2024 Dental Examination 02/10/2025 02/09/2024 Dental Prophy 02/21/2025 08/22/2024, 02/09/2024 Lipid Screening 06/15/2025 06/15/2024, 09/0 09/2021, 04/11/2022 Serum Creatinine 08/05/2025 08/05/2024, , 07/01/2024, Additional history exists Dental Perio Charting 08/24/2025 08/22/2024 Tobacco Screening 09/05/2025 09/05/2024 Pap Smear 05/15/2026 05/15/2023 Cervical Cancer Screening 05/15/2028 Pap + HPV 05/15/2028 05/15/2023 Dental FMX/Pano 02/10/2029 02/09/2024 HIV Screening Completed 09/02/2022, 09/02/2022 Hepatitis C Screening Completed 09/02/2022 Alcohol and Drug Screen Completed 08/25/19 25, 05/26/2024, 05/19/2024, Additional history exists Cervical Ablation/Cold-Knife Conization Discontinued Cervical Cryotherapy Discontinued Colposcopy Discontinued Endometrial Biopsy Discontinued Excision/Leep Discontinued HPV Genotyping Discontinued Vaginal Pap Discontinued Vulvoscopy Discontinued Procedures Procedure Name Priority Date/Time Associated Diagnosis Comments DENTAL CASE MANAGEMENT - CARE COORDINATION Routine 08/22/2024 9:00 AM EST Encounter for dental examination Full ORAL HYGIENE INSTRUCTIONS Routine 08/22/2024 9:00 AM EST Encounter for dental examination Full NUTRITIONAL COUNSELING CONTROL OF DENTAL DISEASE Routine 08/22/2024 9:00 AM EST Encounter for dental examination Full PROPHYLAXIS - ADULT Routine 08/22/2024 9:00 AM EST Encounter for dental examination CARD SCANNED DOCUMENT 07/27/2024 3:00 AM EST CULTURE, AEROBIC AND ANAEROBIC W/GRAM STAIN Routine 07/04/2024 3:27 PM EST Abscess COMPREHENSIVE METABOLIC PANEL Routine 06/15/2024 9:39 AM EST Prediabetes LIPID PANEL Routine 06/15/2024 9:39 AM EST Prediabetes HEMOGLOBIN GLYCOSYLATED A1C Routine 06/15/2024 9:39 AM EST Prediabetes Full INTRAORAL - COMP SERIES OF RADIOGRAPHIC IMAGES Routine 02/09/2024 3:40 PM EDT Caries of enamel (incipient) Full COMP ORAL EVALUATION - NEW/ESTABLISHED PATIENT Routine 02/09/2024 3:40 PM EDT Caries of enamel (incipient) HISTORIC MAMMOGRAM 08/14/2023 3: 00 AM EST THIN PREP PAP + HPV RNA E6/E7 (Q) Routine 05/15/2023 9:11 AM EDT Encounter for Papanicolaou smear of vagina as part of routine gynecological examination TSH W/RFLX FREE T4 Routine 02/24/2023 12 :02 PM EDT Fatigue, unspecified type HIV 1/2 AG & AB W/RFLX (4TH GEN) Routine 09/02/2022 9:12 AM EST Routine general medical examination at a health care facility HEPATITIS C AB W/RFLX HCV RNA, QT, RT PCR Routine 09/02/2022 9:12 AM EST Routine general medical examination at a health care facility from Last 3 Months or Most Recently Relevant to Health Maintenance Results * CARD SCANNED DOCUMENT (07/27/2024 3:00 AM EST) 07/27/2024 3:00 AM EST us Matt Curtis OUTDOOR ADVENTURE INSTRUCTOR SCAN ECGS Final Res ult * (ABNORMAL) CULTURE, AEROBIC AND ANAEROBIC W/GRAM STAIN (07/04/2024 3:27 PM EST) CULTURE See Note [facility] Comment: ??CULTURE, ANAEROBIC BACTERIA W/GRAM STAIN ?Micro Number: ?[id number] ??Test Status: ? Final ??Specimen Source: ?? Abscess ??Specimen Quality: ??Adequate ??Gram Stain: ?Few White blood cells seen ? No epithelial cells seen ? Few Gram positive cocci in clusters ??Result: ?No anaerobes isolated. CULTURE See Note(A) [facility] Comment: ??CULTURE, AEROBIC BACTERIA ?Micro Number: ?[id number] ??Test Status: ? Final ??Specimen Source: ?? Abscess ??Specimen Quality: ??Adequate ??Result: ?Heavy growth of ? Methicillin resistant Staphylococcus aureus (MRSA) ?MRSA ?INT ?? HARINDER ?? CIPROFLOXACIN ?S ? <=0.5 ?? CLINDAMYCIN ?R ? >=8 ?? ERYTHROMYCIN ? R ? >=8 ?? GENTAMICIN ? S ? <=0.5 ?? LEVOFLOXACIN ? S ? 0.25 ?? MOXIFLOXACIN ? S ? <=0.25 ?? OXACILLIN ?R ? NR 1 ?? TETRACYCLINE ? R ? >=16 ?? TRIMETHOPRIM/SULFA ? S ? <=10 ?? VANCOMYCIN ? S ? 1 S = Susceptible ??I = Intermediate ??R = Resistant ??NS = Not susceptible SDD = Susceptible Dose Dependent ??* = Not Tested ??NR = Not Reported NN = See Therapy Comments THERAPY COMMENTS ?Note 1: ?Oxacillin-resistant staphylococci are resistant to ?all currently available beta-lactam antimicrobial ?agents with the possible exception of ceftaroline. ABSCESS Abscess morphology / Unknown 07/04/2024 3:27 PM EST 07/04/2024 3:29 PM EST Narrative [facility] - 07/11/2024 9:59 AM EST AN UPDATE OR CORRECTION HAS BEEN MADE TO NAME Kendell Gaines PA-C LAB - NO BLOOD DRAW Final Res ult [facility] [address] [place] [id number], [facility] [address] [place] [phone] * (ABNORMAL) HEMOGLOBIN GLYCOSYLATED A1C (06/15/2024 9:39 AM EST) HEMOGLOBIN A1C 11.3(H) <5.7 % of total Hgb [facility] Comment: For someone without known diabetes, a hemoglobin A1c value of 6.5% or greater indicates that they may have diabetes and this should be confirmed with a follow-up test. For someone with known diabetes, a value <7% indicates that their diabetes is well controlled and a value greater than or equal to 7% indicates suboptimal control. A1c targets should be individualized based on duration of diabetes, age, comorbid conditions, and other considerations. Currently, no consensus exists regarding use of hemoglobin A1c for diagnosis of diabetes for children. ?? Blood Blood / Unknown 06/15/2024 9 :39 AM EST 06/15/2024 9:41 AM EST Matt Ever [employer] INSTRU[employer] LAB - BLOOD DRAW Edited R esult - Final [facility] [address] [place] [id number], [facility] [address] [phone] * (ABNORMAL) LIPID PANEL (06/15/2024 9:39 AM EST) [facility] CHOLESTEROL, TOTAL 154 <200 mg/dL [facility] HDL CHOLESTEROL 69 > OR = 50 mg/dL [facility] TRIGLYCERIDES 199(H) <150 mg/dL [facility] LDL-CHOLESTEROL 58 99 mg/dL (calc) [facility] Comment: Reference range: <100 Desirable range <100 mg/dL for primary prevention; ?? <70 mg/dL for patients with CHD or diabetic patients with > or = 2 CHD risk factors. LDL-C is now calculated using the Tanmay-Morfin calculation, which is a validated novel method providing better accuracy than the Friedewald equation in the estimation of LDL-C. Tanmay SS et al. RAMONA. 2013;310(19): 8910-7614 (http://education.ZAPR/faq/WVF452) CHOL/HDLC RATIO 2.2 <5.0 (calc) [facility] NON-HDL CHOLESTEROL 85 <130 mg/dL (calc) [facility] Comment: For patients with diabetes plus 1 major ASCVD risk factor, treating to a non-HDL-C goal of <100 mg/dL (LDL-C of <70 mg/dL) is considered a therapeutic option. Blood Blood / Unknown 06/15/2024 9 :39 AM EST 06/15/2024 9:41 AM EST Matt Brownncourt [employer] AD[employer]URE INSTRUCTOR LAB - BLOOD DRAW Final Re sult [facility] [address] [address], [facility] [address] [place] [address] * (ABNORMAL) COMPREHENSIVE METABOLIC PANEL (06/15/2024 9:39 AM EST) GLUCOSE 357(H) 65 - 99 mg/dL [facility] Comment: ?Fasting reference interval For someone without known diabetes, a glucose value >125 mg/dL indicates that they may have diabetes and this should be confirmed with a follow-up test. UREA NITROGEN (BUN) 14 7 - 25 mg/dL [facility] CREATININE (blood) 1.31(H) 0.50 - 1.03 mg/dL [facility] EGFR 47(L) > OR = 60 mL/min/1. 73m2 [facility] BUN/CREATININE RATIO 11 6 - 22 (calc) [facility] SODIUM 141 135 - 146 mmol/L [facility] POTASSIUM 3.7 3.5 - 5.3 mmol/L [facility] CHLORIDE 103 98 - 110 mmol/L [facility] CARBON DIOXIDE 31 20 - 32 mmol/L [facility] CALCIUM 9.2 8.6 - 10.4 mg/dL [facility] PROTEIN, TOTAL 5.5(L) 6.1 - 8.1 g/dL [facility] ALBUMIN 3.8 3.6 - 5.1 g/dL [facility] GLOBULIN 1.7(L) 1.9 - 3.7 g/dL (calc) [facility] ALBUMIN/GLOBULI N RATIO 2.2 1.0 - 2.5 (calc) [facility] BILIRUBIN, TOTAL 0.4 0.2 - 1.2 mg/dL [facility] ALKALINE PHOSPHATASE 57 37 - 153 U/L [facility] AST 11 10 - 35 U/L [facility] ALT 24 6 - 29 U/L [facility] Blood Blood / Unknown 06/15/2024 9 :39 AM EST 06/15/2024 9:41 AM EST Matt Ever [employer] INSTRU[employer] LAB - BLOOD DRAW Final Re sult [facility] [address] [address], [facility] [address] [address] * HISTORIC MAMMOGRAM (08/14/2023 3:00 AM EST) 08/14/2023 3:00 AM EST Matt Ever [employer]DO[employer] AD[employer]URE INSTRUCTOR IMG MAMMO Final Res ult * THIN PREP PAP + HPV RNA E6/E7 (Q) (05/15/2023 9:11 AM EDT) CLINICAL INFORMATION See Note [facility] Comment:Normal exam LMP See Note [facility] Comment:NONE GIVEN PREV. PAP See Note [facility] Comment:NONE GIVEN PREV. BX See Note [facility] Comment:NONE GIVEN SOURCE See Note [facility] Comment:Cervix STATEMENT OF ADEQUACY See Note [facility] Comment:SATISFACTORY FOR BORIS LUATION INTERPRETATION/RESU LT See Note [facility] Comment: Cytology Results: Negative for intraepithelial lesion or malignancy. Atrophic pattern; predominantly parabasal cells HAND DEVELOPER See Note [facility] [employer] Comment: KN, CT(ASCP) CT screening location: [address] ??[address] COMMENT [facility] HPV MRNA E6/E7 Not Detected Not Detected [facility] Comment: Methodology: Pumper Hand-Mediated Amplification This assay detects E6/E7 viral messenger RNA (mRNA) from 14 high-risk HPV types (16,18,31,33,35,39,45,51,52,56,58,59,66,68). Cervical sources are required for HPV testing. If a vaginal source from a patient who has had a total hysterectomy with removal of cervix was submitted, please contact the testing laboratory for alternative testing options. For additional information, please refer to http://education.S3Bubble/faq/YDE984c2 (This link if provided for information/ educational purposes only.) CYTOLOGY Cervix uteri structure / Unknown 05/15/2023 9:11 AM EDT 05/18/2023 5:02 AM EDT Narrative [facility] - 05/18/2023 10:19 PM EDT EXPLANATORY NOTE: The Pap is a screening test for cervical cancer. It is not a diagnostic test and is subject to false negative and false positive results. It is most reliable when a satisfactory sample, regularly obtained, is submitted with relevant clinical findings and history, and when the Pap result is evaluated along with historic and current clinical information. Abelardo Roa MD LAB - NO BLOOD DRAW Final Resul t Performing Organization Address City/[facility]/ZIP Co de Phone Number [employer] [address], [employer] [address] [address] * TSH W/RFLX FREE T4 (02/24/2023 12:02 PM EDT) Pathologist [facility] TSH W/REFLEX TO FT4 0.93 0.40 - 4.50 mIU/L [facility] Blood Blood / Unknown 02/24/2023 1 2:02 PM EDT 02/24/2023 12:03 PM EDT Ronal Orlando MD LAB - BLOOD DRAW Edited Resu lt - Final Performing Organization Address [facility] Co de Phone Number [employer] [address] [address], [employer] [address] [address] * HEPATITIS C AB W/RFLX HCV RNA, QT, RT PCR (09/02/2022 9:12 AM EST) HEPATITIS C ANTIBODY NON-REACT HAYDEN NON-REACT HAYDEN [facility] SIGNAL TO CUT-OFF 0.06 <1.00 [facility] Comment: HCV antibody was non-reactive. There is no laboratory evidence of HCV infection. In most cases, no further action is required. However, if recent HCV exposure is suspected, a test for HCV RNA (test code 46052) is suggested. For additional information please refer to http://[employer].S3Bubble/faq/RNP43c1 (This link is being provided for informational/ educational purposes only.) Blood Blood / Unknown 09/02/2022 9 :12 AM EST 09/02/2022 9:12 AM EST [facility] Jayme OUTDOOR ADVENTURE INSTRUCTOR-C LAB - BLOOD DRAW Edited R esult - Final Performing Organization Address City/[facility]/ZIP Co de Phone Number [employer] [address] [place] [address], [employer] [address]) [place] [address] * HIV 1/2 AG & AB W/RFLX (4TH GEN) (09/02/2022 9:12 AM EST) HIV AG/AB, 4TH GEN NON-REAC TIVE NON-REAC TIVE [employer] [facility] Comment: HIV-1 antigen and HIV-1/HIV-2 antibodies were not detected. There is no laboratory evidence of HIV infection. PLEASE NOTE: This information has been disclosed to you from records whose confidentiality may be protected by state law. ??If your state requires such protection, then the state law prohibits you from making any further disclosure of the information without the specific written consent of the person to whom it pertains, or as otherwise permitted by law. A general authorization for the release of medical or other information is NOT sufficient for this purpose. ?? For additional information please refer to http://[employer].S3Bubble/faq/HHM370 (This link is being provided for informational/ educational purposes only.) The performance of this assay has not been clinically validated in patients less than 2 years old. Blood Blood / Unknown 09/02/2022 9 :12 AM EST 09/02/2022 9:12 AM EST [facility] OUTDOOR ADVENTURE INSTRUCTOR-C LAB - BLOOD DRAW Final Re sult [facility] [address] [address], [facility] [address] [facility] (NL[address]) [place] [address] from Last 3 Months or Most Recently Relevant to Health Maintenance [place] Care Teams Metal Trimmer Relationship Specialty Start Date End Date Matt Curtis FNP [address] [place] [address] PCP - General Family Medicine, HOME SPECIALIST 02/24/23
--- OUTSIDE RECORDS SUMMARY | 2024-10-04 12:16 | XMS_ITS | Encounter Summary ---
Author Organization [facility] Address [address] [place] [address] Care Team Providers Care Account Development Associate Name Role Phone Fito Rush Primary Care Provider [phone] Encounter Details Date Type Department Care Team [...] seeing Dr. Pendleton, filling in for dr. Palomo. The ?abscess to left lower abdominal wall has healed. There is no redness, no warmth, no drainage and no s/s of infection. Patient states healed pretty good Patient did the alignment specialist this morning and states Dr. Pendleton wants you to do labs he thinkhe knows what this is and thinks we can treat it here so I dont have to go to [place] to see anotherspecialist Patient states she has [...] met at this time, call nieves at [facility], will monitor. * Historical, Notes Results - [...] Info) Description 10/25/2024 10:[address] [facility] Xray [address] [place] [address] 11/01/2024 9:15 AM EDT Office Visit Orthopedic Surgery - [place] [address] [phone] Goyo Noriega DPM [address] [address] 12/16/2024 9:15 AM EDT Office Visit [facility] Hematology Oncology [address] [place] [address] Clarisa Vazquez MD [address] [place] [address] documented as of this encounter Visit Diagnoses Not on filedocumented in this encounter Care Teams Account Development Associate Relationship Specialty Start Date End Date Fito Rush PA [facility] [address] [place] [address] PCP - General 07/17/23 documented as of this encounter
--- OUTSIDE RECORDS SUMMARY | 2024-10-04 12:16 | XMS_ITS | Encounter Summary ---
Author Organization [facility] Address [address] [place] [address] Care Team Providers Care Commercial Baking Teacher Name Role Phone EverMatt cm MEAT PACKER Primary Care Provider [phone] Reason for Visit * Reason Comments Follow Up Urinary urgency Encounter Details Date Type Department Care Team (Late st Contact Info) Description 09/05/2024 10:40 AM EST Office Visit [address] [phone] Gita Ordonez DO [address] [place] [address] Urge urinary incontinence (Primary Dx); Poorly controlled type 2 diabetes mellitus ([facility]) Social History Tobacco Use Types Packs/Day Years [...] Orientation Straight 04/11/2022 11 :15 AM PDT COVID-19 Exposure Response Date Recorded In the last 10 days, have yo u been in contact with someone who was confirmed or suspected to have Coronavirus/COVID-19? No / Unsure 08/25/2024 10:31 AM EST documented as of this encounter Last Filed Vital Signs Vital Sign Reading Time Taken Comments Blood Pressure 127/80 09/05/2024 11:04 AM EST Pulse 86 09/05/2024 11:04 AM EST Temperature - - Respiratory Rate 16 09/05/2024 11:04 AM EST Oxygen Saturation 100% 09/05/2024 11:04 AM EST Inhaled Oxygen Concentration - - Weight 84.4 kg (186 lb) 09/05/2024 11:04 AM EST Height 175.9 cm (5' 9.25 ) 09/05/2024 11:[address] Body Mass Index 27.27 09/05/2024 11:04 AM EST documented in this encounter Progress Notes * Gita Ordonez DO - 09/05/2024 1:09 PM EST SUBJECTIVE CC/Reason for Visit: Following up urge urgency incontinence HPI: Shona Rodriguez is a 58 year old presenting for follow-up for urge urinary incontinence. She denies any changes in symptoms since last visit. She has been trying to make more water but this has been making her symptoms worse. She her completely cut out crystal light and still limits sweet tea. She continues to struggle with diabetes. She is now on Jardiance and Semaglutide for diebetes managed- has been on this regimen for a few weeks. Last A1c in June was 11.5. She is still hesitant to start meds for incontinence symptoms. States- already on so many meds. OB history: OB History No obstetric history on file. 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 Current Outpatient Medications Medication Sig Last Dispense Staff Notes empagliflozin (JARDIANCE) 10 mg tab Take 1 Tablet by mouth daily. Unknown (outside pharmacy) <None> semaglutide (RYBELSUS) 7 mg tab Take 1 Tablet by mouth every morning before breakfast Unknown (outside pharmacy) <None> traMADoL (ULTRAM) 50 mg tablet Take 1 Tablet by mouth 3 (three) times daily as needed for pain Unknown (outside pharmacy) <None> acetaminophen (TYLENOL) 500 mg tablet Take 2 Tablets by mouth every 6 (six) hours as needed for pain Unknown (outside pharmacy) <None> amLODIPine (NORVASC) 10 mg tablet Take 1 Tablet by mouth once daily for 90 days Unknown (outside pharmacy) <None> triamcinolone (KENALOG) 0.1 % cream Apply topically 2 (two) times daily Unknown (outside pharmacy) <None> FEROSUL 325 mg (65 mg iron) tablet Take 1 Tablet by mouth 2 (two) times daily with a meal Unknown (outside pharmacy) <None> atorvastatin (LIPITOR) 40 mg tablet Take 1 Tablet by mouth once daily Unknown (outside pharmacy) <None> chlorhexidine gluconate (HIBICLENS) 4 % external liquid Apply to skin once daily Unknown (outside pharmacy) <None> silver sulfADIAZINE (SILVADENE) 1 % cream Apply topically once daily Unknown (outside pharmacy) <None> fluticasone (FLONASE) 50 mcg/actuation nasal spray Place 1 [place] in both nostrils once daily Unknown (outside pharmacy) <None> carvediloL (COREG) 6.25 mg tablet Take 1 Tablet by mouth 2 (two) times daily with a meal Unknown (outside pharmacy) <None> lidocaine (LIDODERM) 5 % patch Place 1 Patch onto the skin once daily (every 24 hours) Unknown (outside pharmacy) <None> MISCELLANEOUS MEDICAL SUPPLY [facility] [place] Please provide 1 roll of InterDry- Silver moisture wicking fabric. Apply once piece to affected area daily. Unknown (no pharmacy) <None> hydrocortisone (CORTEF) 5 mg tablet 2 tabs in the morning and 1 in the pm. Dispense 20 extra tablets. Unknown (outside pharmacy) <None> alum-mag hydroxide-simeth (MAALOX MAX) 400-400-40 mg/5 mL suspension Pt to self mix 5ml with benadryl and lidocaine and place on gums with q-tip every 4 hours as needed for adams Unknown (outside pharmacy) <None> diphenhydrAMINE (BENADRYL) 12.5 mg/5 mL liquid Pt self mix 5ml with lidocaine and maalox and place on gums with q-tip every 4 hours as needed for adams Unknown (outside pharmacy) <None> lidocaine (LIDOCAINE VISCOUS) 2 % solution Pt self mix 5ml with benadryl and maalox and place on gums with q-tip every 4 hours as needed for pain Unknown (outside pharmacy) <None> erythromycin (ROMYCIN) 5 mg/gram (0.5 %) ophthalmic ointment Place 0.5 Inches into both eyes 4 (four) times daily Unknown (outside pharmacy) <None> blood-glucose meter (FREESTYLE LITE METER) monitoring kit Freestyle Lite meter, See Instructions, #1 each, Refills 0, Tot. Refills 0, Maintenance, use to check bld glucose 3 times daily E11.9, 02/11/23 12:09:00 EDT, Supply, 175.26, cm, 01/26/23 16:16:00 EDT, Height Unknown (patient-reported) <None> lancets 28 gauge Freestyle lite lancets, See Instructions, # 100 each, Refills 11, Tot. Refills 11,Maintenance, use to check bld glucose 3 times daily E11.9, 02/11/23 12:10:00 EDT, Supply, 175.26, cm, 01/26/23 16:16:00 EDT, Height Unknown (patient-reported) <None> docusate sodium (COLACE) 100 mg capsule Unknown (patient-reported) <None> FREESTYLE LANCETS 28 gauge Unknown (patient-reported) <None> FREESTYLE LITE STRIPS strips Unknown (patient-reported) <None> levothyroxine (SYNTHROID, LEVOXYL) 25 mcg tablet Unknown (patient-reported) <None> SOLU-CORTEF 100 mg solr 100MG INTRAMUSCULAR ONCE FOR ADRENAL CRISIS Unknown (patient-reported) <None> folic acid (FOLVITE) 1 mg tablet Take 1 Tablet by mouth once daily Unknown (outside pharmacy) <None> cholecalciferol (VITAMIN D-3) 50 mcg (2,000 unit) capsule Take 1 Capsule by mouth once daily Unknown (outside pharmacy) <None> gabapentin (NEURONTIN) 300 mg capsule Take 1 Capsule by mouth 2 (two) times daily Unknown (outside pharmacy) <None> No current facility-administered medications for this visit. ROS Constitutional: Denies fever or chills, weakness, fatigue HEENT: Denies headache, dizziness Cardiovascular: Denies chest pain or palpitations. Respiratory: Denies shortness of breath, cough Gastrointestinal: Denies abdominal pain, N/V, C/D CHECK PILOT: Denies vaginal pain, discharge, heavy bleeding, lesions Ext: Denies LE swelling or calf pain OBJECTIVE BP 127/80 Pulse 86 Resp 16 Ht 5' 9.25 (1.759 m) Wt 186 lb (84.4 kg) SpO2 100% BMI 27.27 kg/m?? OB Status Postmenopausal Smoking Status Never BSA 2.03 m?? Physical Exam: General: pleasant, alert, cooperative, NAD HEENT: Normocephalic/atraumatic Respiratory: Unlabored breathing Neurologic: No focal neurological deficits. Moves all extremities spontaneously. Extremities: Symmetrical muscle bulk, no visible erythema or edema. Psych: Mood and affect stable, appearance appropriate, good eye contact, talkative ASSESSMENT/PLAN: Shona Rodriguez is a 58 year old with poorly controlled Type II DM presenting for follow-up for urge urinary incontinence. No improvement in symptoms despite appropriate lifestyle changes. Her diabetes remains poorly controlled and I suspect this is a main contributing factor. We discussed options including: improve glycemic control +/- trial on medications for urge urinary incontinence vs urogyn referral. Her main barrier to DM management is compliance and this seems to be related to her needle phobia. We discussed option of continuous glucose monitor and she is open to this. Will reach out to PCP to discuss further. For incontinence symptoms- she would like to cont to work on lifestyle changes and glycemic controland follow-up in 3 months. Declines meds. Shona Rodriguez was seen today for follow up. #1 Urge urinary incontinence (Primary) Comments: - F/u 3 months - Declines meds #2 Poorly controlled type 2 diabetes mellitus ([facility]) Comments: - Reach out to PCP to discuss CGM - Cont Jardiance and Ozempic documented in this encounter Miscellaneous Notes * Patient Instructions - Gita Ordonez DO - 09/05/2024 11:34 AM EST Decrease Water intake to 1- 1.5 L/day Continue Kegel exercise, 30-50 Kegel'/day Continue your lifestyle changes as we have previously discussed Medication we can consider is Myrbetriq Consider referral to Urogyn to discuss other treatment options, such as bladder botox documented in this encounter Plan of Treatment Upcoming Encounters Date Type Department Care Team (Late st Contact Info) Description 10/10/2024 10:00 AM EST BH/ Visits [facility] [address] [place] [phone] Pedro Cordero LCSW [address] [place] [address] 11/29/2024 9:40 AM EDT Office Visit [address] [phone] Matt Curtis FNP [address] [place] [address] 12/15/2024 8:40 AM EDT Office Visit [place] [address] [place] [address] [place] [address] [place] [address] documented as of this encounter Visit Diagnoses Diagnosis Urge urinary incontinence- Primary Urge incontinence Poorly controlled type 2 diabetes mellitus (HCC-CMS) Type II or unspecified type diabetes mellitus without mention of complication, not stated as uncontrolled documented in this encounter Additional Health Concerns Assessment Noted Time PHQ-9 Depression Total Score: 0 08/25/19 25 10:47 AM PST documented as of this encounter Care Teams Commercial Baking Teacher Relationship Specialty Start Date End Date Matt Curtis FNP [address] [place] [address] PCP - General Family Medicine, STEM SETTER 02/24/23 documented as of this encounter
--- OUTSIDE RECORDS SUMMARY | 2024-10-04 12:16 | XMS_ITS ---
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 Past Plans Oncology Treatment Plan Name Start Date Discontinue Date Treatment Medications Discontinue Reason Plan Provider Cycles RiTUXimab Weekly 06/20/20 24 08/05/2024 riTUXimab-pvvr (RUXIENCE) IVPB 250 mL - Therapy Complete Subramony Subramonia-I MD hi 1 of 1 cycle started Radiation Treatments * No radiation treatments are documented for this patient in [facility]. Treatments may have been administered in another system.
--- OUTSIDE RECORDS SUMMARY | 2024-10-04 12:16 | XMS_ITS | Encounter Summary ---
Author Organization [facility] Address [address] [place] [address] Care Team Providers Care Para Machine Operator Name Role Phone Fito Rush Primary Care Provider Encounter Details Date Type Department Care Team (Late st Contact Info) Description 06/03/2024 9:45 AM EDT Hospital Encounter TH HISTORIC ENCOUNTERS EASTERN CONVERSION ONLY Lia Pendleton MD [address] [place] [address] Social History Tobacco Use Types Packs/Day Years [...] Info) Description 10/25/2024 10:15 AM EDT Appointment [facility] Xray [address] [place] [phone] 11/01/2024 9:15 AM EDT Office Visit Orthopedic Surgery - [place] [address] [phone] Goyo Noriega DPM [address] [address] 12/16/2024 9:15 AM EDT Office Visit [facility] Hematology Oncology [address] [place] [phone] Clarisa Vazquez MD [address] [place] [address] documented as of this encounter Visit Diagnoses Not on filedocumented in this encounter Care Teams Para Machine Operator Relationship Specialty Start Date End Date Fito Rush PA [address] [id number] [place] [address] PCP - General 07/17/23 documented as of this encounter
--- OUTSIDE RECORDS SUMMARY | 2024-10-04 12:16 | XMS_ITS | Clinical Summary ---
Author Organization [facility] Address [address] [facility] [address] [place] [address] Phone Care Team Providers Care Ed Tech Name Role Phone Abelardo Morgan MD Primary Care Provider [phone] Allergies Active Allergy Reactions Criticality Noted Date Comments Ampicillin Other (see comments) 03/25/2023 Penicillins Hives,Shortness of breath High 2 Medications carvedilol (COREG) 6.25 MG tablet Take 1 tablet by mouth in the morning and 1 tablet in the evening. 02/26/2023 Active atorvastatin (LIPITOR) 40 MG tablet Take 1 tablet by mouth 1 (one) time each day 02/24/2023 Active cholecalciferol (VITAMIN D-3) 50 MCG (2000 UT) capsule Take 1 capsule by mouth 1 (one) time each day 02/24/2023 Active docusate sodium (COLACE) 100 MG capsule 12/29/2022 Active FeroSul 325 (65 Fe) MG tablet Take 1 tablet by mouth 1 (one) time each day 12/24/2022 Active folic acid (FOLVITE) 1 MG tablet Take 1 tablet by mouth 1 (one) time each day 02/24/2023 Active hydrocortisone (CORTEF) 5 MG tablet Take 3 tablets by mouth 1 (one) time each day 2 tabs am 1 tab pm 03/24/2023 Active levothyroxine (SYNTHROID, LEVOTHROID) 25 MCG tablet Take 1 tablet by mouth 1 (one) time each day 02/24/2023 Active Active Problems Problem Noted Date Diagnosed Date Prediabetes 04/27/2023 05/05/2023 Stage 3b chronic kidney disease 03/26/2023 Hypertension 03/26/2023 Benign hypertensive renal disease 03/25/2023 03/25/2023 Chronic kidney disease stage 2 03/25/2023 0 03/25/2023 Microcytic anemia 09/15/2022 03/25/2023 Thee's disease 05/02/2022 03/25/2023 Chronic kidney disease stage 3A 05/02/2022 03/25/2023 Essential hypertension 04/23/2022 Resolved Problems Problem Noted Date Diagnosed Date Resolved Date Cardiac murmur 03/25/2023 03/25/2023 03/25/2023 Gastroesophageal reflux disease 03/25/2023 3 03/25/2023 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 03/25/202303/25/2023 Overactive bladder 01/13/2023 03/25/2023 Alpha thalassemia trait 09/15/2022 03/25/202303/10 Hemoglobinopathy 09/15/2022 03/25/2023 03/25/2023 Serum protein above reference range 09/15/2022 03/25/2023 Other fatigue 09/15/2022 03/25/2023 03/25/2023 Sickle cell trait 09/15/2022 03/25/2023 03/25/2023 History of cerebrovascular accident 05/02/202203/2503/25/2023 Overview (03/25/2023): Thalamic infarct [facility] 2020 Disorder of pituitary gland 04/23/2022 03/25/2023 03/25/2023 Overview (03/25/2023): On residential use of prednisone due to this Other hyperlipidemia 04/23/2022 03/25/2023 023 Family History Medical History Relation Comments Cancer Mother Stage 4 pancreat ic cancer Diabetes Mother Hypertension Mother Relation Status Comments Father Mother Alive Social History Tobacco Use Types Packs/Day Years Used Date Smoking Tobacco: Never Smokeless Tobacco: Never Tobacco Cessation:Counseling Given: No Alcohol Use Standard Drinks/Week Comments No 0 (1 standard drink = 0.6 oz pur e alcohol) Comments Unknown Sex and Gender Information Value Date Recorded Sex Assigned at Not on file Legal Sex Female 1:34 PM EST Gender Identity Not on file Sexual Orientation Not on file Last Filed Vital Signs Vital Sign Reading Time Taken Comments Blood Pressure 146/82 05/05/2023 4:20 PM EDT Pulse 60 05/05/2023 4:20 PM EDT Temperature - - Respiratory Rate - - Oxygen Saturation 100% 05/05/2023 4:20 PM EDT Inhaled Oxygen Concentration - - Weight 78.9 kg (174 lb) 05/05/2023 4:20 PM EDT Height - - Body Mass Index - - Plan of Treatment Health Maintenance Due Date Last Done Comments Breast Cancer Screening 1965 Pneumococcal Vaccine: Pediat rics (0 to 5 Years) and At-Risk Patients (6 to 64 Years) (1 of 2 - PCV) 1971 Hepatitis B Vaccine (1 of 3 - 19+ 3-dose series) 09/12 Colorectal Cancer Screening: Annual FOBT 2014 Colorectal Cancer Screening: Colonoscopy 2014 Colorectal Cancer Screening: Sigmoidoscopy 2014 Influenza Vaccine (#1) 2024 Insurance [place] Care Teams Ed Tech Relationship Specialty Start Date End Date Abelardo Morgan MD [address] [place] [address] PCP - General Endocrinology 10/02/23
[2024-10-04 18:30] LABS: Anion Gap 12 (12-20); Blood Urea Nitrogen 16 mg/dL (9-16); Carbon Dioxide 27 mmol/L (22-29); Chloride 108 mmol/L (96-108); Estimated Glomerular Filt Rate 38; Potassium 3.6 mmol/L (3.3-5.1); Sodium 143 mmol/L (135-145)
== END 2024-10-04 09:58 | disposition home or self-care (01) ==
LOC: HO.HKASLDS 09:57
PROVIDERS: Visit Provider Internal Medicine Nephrology
DX: I12.9 Hypertensive chronic kidney disease with stage 1 through stage 4 chronic kidney disease, or unspecified chronic kidney disease (principal); N18.31 Chronic kidney disease, stage 3a; E87.6 Hypokalemia
CPT/HCPCS: 36415; 80051; 82565; 84520; 99212

== ENCOUNTER 2024-10-04 09:57 | Outpatient (AMB) | payer MEDICAID, SELFPAY ==
--- NOTE | 2024-10-04 09:59 | HO.NEPHOV ---
Vital Signs 10/04/24 10:02 Height 5 ft 9 in Weight 188 lb BMI 27.8 BP 120/70 Blood Pressure Location Lt brachial Position Sitting Pulse 76 Pulse Source Pulse Oximeter Pulse Oximetry (%) 100 Oxygen Delivery Method Room Air Intake Visit Reasons: Follow-up- [facility] Dental Ceramist Assistant Required: No Accompanied by: Self / Same As Patient Allergies ampicillin Allergy (Verified 10/04/24 10:02) Unknown Penicillins Allergy (Verified 10/04/24 10:02) Unknown HPI Comments Details: Maggy was seen in follow-up for chronic kidney disease. She has history of 1 small kidney. 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 She had undergone PLEX. She had been getting treatment by her advance seal delivery system maintainer. She feels tired. She does not have any chest pain, shortness of breath, nausea vomiting, diarrhea, dizziness or edema. She does not take any nonsteroidal anti-inflammatory medications, drugs. She is not a smoker. She claims to be compliant with her medications. There were no other new complaints at the time of this office visit. [facility] Medical History (Updated 10/04/24 @ 10:16 by Anton Corral MD) Chronic kidney disease, stage 3b Essential (primary) hypertension Surgical History H/O eye surgery H/O removal of cyst Family History Mother Pancreatic cancer Kidney disease Social History Alcohol intake: never Patient Tobacco Use Status: Never used Tobacco Review of Systems Const All systems reviewed & are unremarkable except as noted in HPI and below Physical Exam Vital Signs: Last Vital Signs Pulse 76 10/04/24 10:02 BP 120/70 10/04/24 10:02 Pulse Ox 100 10/04/24 10:02 Oxygen Delivery Method Room Air 10/04/24 10:02 BMI result Body Mass Index 27.8 Const General: comfortable and no acute distress Orientation/consciousness: patient oriented x3 HEENT Head: Yes normocephalic Mouth: Normal oral and palatal mucosa present Eyes EOM: EOMs intact bilaterally Neck Neck: Yes supple Resp Auscultation: clear to auscultation bilaterally Cardio Jugular venous distension: no JVD Rate: regular rate GI Palpation (GI): Soft to palpation Auscultation: normal bowel sounds General: Yes no CVA tenderness Back/Spine/Pelvis Back: no CVA tenderness Skin General skin exam: no rashes or lesions noted Neuro General: patient oriented x3 and moves all extremities Extrem General: Yes no pedal edema Assessment & Plan Assessment & Plan (1) CKD stage 3a, GFR 45-59 ml/min: Code(s): N18.31 - Chronic kidney disease, stage 3a Category: Medical (2) Essential (primary) hypertension: Code(s): I10 - Essential (primary) hypertension Category: Medical (3) Hypokalemia: Code(s): E87.6 - Hypokalemia Category: Medical Plan Her renal functions have settled to baseline( stable). She is followed by her Small Package And Bundle Sorter Clerk. She is on carvedilol. She is not on CARLOS-inhibitor but on Jardiance. She does not need a renal biopsy now. She is on K replacement. I ordered F/U labs today and in 6 months. All questions answered. Further management is pending data Orders: Orders Blood Urea Nitrogen 6 Months E87.6 - Hypokalemia, I10 - Essential (primary) hypertension, N18.31 - Chronic kidney disease, stage 3a Electrolytes 6 Months E87.6 - Hypokalemia, I10 - Essential (primary) hypertension, N18.31 - Chronic kidney disease, stage 3a Electrolytes Today E87.6 - Hypokalemia, I10 - Essential (primary) hypertension, N18.31 - Chronic kidney disease, stage 3a Blood Urea Nitrogen Today E87.6 - Hypokalemia, I10 - Essential (primary) hypertension, N18.31 - Chronic kidney disease, stage 3a Creatinine Today E87.6 - Hypokalemia, I10 - Essential (primary) hypertension, N18.31 - Chronic kidney disease, stage 3a Creatinine 6 Months E87.6 - Hypokalemia, I10 - Essential (primary) hypertension, N18.31 - Chronic kidney disease, stage 3a Coding Level of Care Code Est Pt Level 4 (18838) Diagnoses CKD stage 3a, GFR 45-59 ml/min N18.31 Essential (primary) hypertension I10 Hypokalemia E87.6
[2024-10-04 10:02] VITALS: BP 120/70; PULSE 76; O2SAT 100; BMI 27.8
== END 2024-10-04 10:56 | disposition home or self-care (01) ==
PROVIDERS: PCP Nurse Practitioner Family; Visit Provider Internal Medicine Nephrology
DX: N18.31 Chronic kidney disease, stage 3a (principal); I10 Essential (primary) hypertension; E87.6 Hypokalemia
CPT/HCPCS: 99214

== ENCOUNTER 2025-03-28 09:39 | Outpatient (REF) | payer MEDICAID, SELFPAY ==
--- OUTSIDE RECORDS SUMMARY | 2024-05-13 09:52 | XMS_ITS | Encounter Summary ---
Author Organization [facility] Address [address] [place] [address] Care Team Providers Care Sexual Assault Counselor Name Role Phone Fito Rush Primary Care Provider [phone] Encounter Details Date Type Department Care Team [...] 04/25/2025 9:30 AM EDT Office Visit Endocrinology [address] [phone] Deyanira Escalante MD [address] [place] [address] 05/10/2025 10:45 AM EDT Office Visit Orthopedic Surgery - [place] [address] [phone] Goyo Noriega DPM [address] [address] 06/05/2025 9:15 AM EDT Office Visit [facility] Hematology Oncology [address] [place] [address] Clarisa Vazquez MD [address] [place] [address] documented as of this encounter Visit Diagnoses Not on filedocumented in this encounter Care Teams Sexual Assault Counselor Relationship Specialty Start Date End Date Fito Rush PA [address] [place] [address] PCP - General 07/17/23 documented as of this encounter
--- OUTSIDE RECORDS SUMMARY | 2025-03-28 10:44 | XMS_ITS | Patient Health Record ---
Author Organization [facility] Address [address] [place] [address] Care Team Providers Care Pairer Substandard Name Role Phone Deuce Murillo, Arash Unavailable [phone] Lester BANKS, Elvis Unavailable Unavailable Reason For Referral No Information Problems Problem Type SNOMED Code ICD Code Onset Dates Problem Status W/U Status Risk Notes Problem Thoracic and lumbosacral neuritis (446381635) Thoracic or lumbosacral neuritis or radiculitis, unspecified (724.4) Active confirmed Problem Lumbosacral spondylosis without myelopathy (55653904) Lumbosacral spondylosis without myelopathy (721.3) Active confirmed Plan Of Treatment No Information Insurance Providers Payer Name Payer Address Payer Phone Subscriber Number Group Number Insured Name Patient Relationship to Insured Coverage Start Date Coverage End Date [facility] [address] [address] [place], [place] [id number] [place] Shona Self - patient is the insured
--- OUTSIDE RECORDS SUMMARY | 2025-03-28 10:44 | XMS_ITS | Clinical Summary ---
Author Organization [facility] Address [address] [place] [address] Care Team Providers Care Head Resident Name Role Phone Ever Matt JORI Primary Care Provider [phone] Source Comments PLEASE NOTE, if this patient is a minor, it may be UNLAWFUL to discuss sensitive information that is contained in these records (such as FAMILY PLANNING, MENTAL HEALTH or SUBSTANCE ABUSE) with the minor patient's parent or other person without the patient's specific authorization.[facility] Allergies Active Allergy Reactions Criticality Noted Date Comments Ampicillin Unknown 03/25/2023 Penicillins Hives,SOB High 04/11/2022 Medications cholecalciferol (VITAMIN D-3) 50 mcg (2,000 unit) capsuleIndicati ons:Microcytic anemia Take 1 Capsule by mouth once daily 30 Capsule 2 023 Active folic acid (FOLVITE) 1 mg tabletIndicatio ns:Microcytic anemia Take 1 Tablet by mouth once daily 90 Tablet 1 023 Active FREESTYLE LITE STRIPS strips 023 Active SOLU-CORTEF 100 mg solr 100MG INTRAMUSCULAR ONCE FOR ADRENAL CRISIS 023 Active FREESTYLE LANCETS 28 gauge 023 Active lancets 28 gauge Freestyle lite [...] cm, 01/26/23 16:16:00 EDT, Height 023 Active MISCELLANEOUS MEDICAL SUPPLY MISCIndications :Chronic wound Please provide 1 roll of InterDry- Silver moisture wicking fabric. Apply once piece to affected area daily. 1 Each 1 024 Active lidocaine (LIDODERM) 5 % patch Place 1 Patch onto the skin once daily (every 24 hours) 30 Patch 1 024 Active fluticasone (FLONASE) 50 mcg/actuation nasal spray Place 1 [place] in both nostrils once daily 48 g 024 Active silver sulfADIAZINE (SILVADENE) 1 % creamIndication s:Abdominal wall abscess Apply topically once daily 50 g 1 024 Active chlorhexidine gluconate (HIBICLENS) 4 % external liquidIndicatio ns:Abdominal wall abscess Apply to skin once daily 473 mL 2 024 Active FEROSUL 325 mg (65 mg iron) tabletIndicatio ns:Anemia, unspecified type Take 1 Tablet by mouth 2 (two) times daily with a meal 180 Tablet 1 024 Active triamcinolone (KENALOG) 0.1 % creamIndication s:Chronic dermatitis of hands Apply topically 2 (two) times daily 454 g 1 024 Active acetaminophen (TYLENOL) 500 mg tabletIndicatio ns:Abscess Take 2 Tablets by mouth every 6 (six) hours as needed for pain 500 Tablet 024 Active traMADoL (ULTRAM) 50 mg tabletIndicatio ns:Atypical chest pain Take 1 Tablet by mouth 3 (three) times daily as needed for pain 30 Tablet 024 Active gabapentin (NEURONTIN) 300 mg capsuleIndicati ons:Vesicular eruption Take 1 Capsule by mouth 2 (two) times daily 60 Capsule 1 025 Active blood-glucose meter,continuou s (FREESTYLE JOSE 3 READER) miscIndications :Inadequately controlled diabetes mellitus (CMS & HHS-HCC) Use to test blood glucose continuously. (Freestyle Jose 3 reader) 1 Each 025 Active blood-glucose sensor (FREESTYLE JOSE 3 SENSOR) deviIndications :Inadequately controlled diabetes mellitus ([facility]) Apply to back of upper arm every 14 days. Use to test blood glucose continuously (Freestyle Jose 3 sensor) 2 Each 025 Active blood sugar diagnostic stripsIndicatio ns:Inadequately controlled diabetes mellitus ([facility]) Use to test blood glucose up to 3 times daily (Freestyle Precision Shine) 100 Each 025 Active lancets (FREESTYLE LANCETS) 28 gaugeIndication s:Inadequately controlled diabetes mellitus ([facility]) Use to test blood glucose up to 3 times daily (Freestyle Lancets) 100 Each 025 Active alcohol swabsIndication s:Inadequately controlled diabetes mellitus ([facility]) Use to test blood glucose up to 3 times daily. 100 Each 025 Active atorvastatin (LIPITOR) 40 mg tabletIndicatio ns:History of stroke Take 1 Tablet by mouth once daily 90 Tablet 1 Active carvediloL (COREG) 6.25 mg tabletIndicatio ns:Essential hypertension Take 1 Tablet by mouth 2 (two) times daily with a meal 180 Tablet Active amLODIPine (NORVASC) 10 mg tablet TAKE ONE TABLET BY MOUTH ONCE DAILY FOR 90 DAYS 90 Tablet 1 025 2024 Active JARDIANCE 10 mg tabIndications: Inadequately controlled diabetes mellitus ([facility]) TAKE ONE TABLET BY MOUTH EVERY DAY 30 Tablet 1 025 Active hydrocortisone (CORTEF) 5 mg tablet TAKE TWO TABLETS BY MOUTH EVERY MORNING AND ONE TABLET EVERY EVENING.. 290 Tablet 025 Active RYBELSUS 7 mg tabIndications: Inadequately controlled diabetes mellitus ([facility]) TAKE ONE TABLET BY MOUTH EVERY MORNING BEFORE BREAKFAST 30 Tablet 5 025 Active semaglutide (RYBELSUS) 7 mg tabIndications: Inadequately controlled diabetes mellitus ([facility]) Take 1 Tablet by mouth every morning before breakfast 30 Tablet 5 024 2024 Discontinued Active Problems Problem Noted Date Diagnosed Date Depression 11/10/2024 Needle phobia 10/10/2024 Inadequately controlled diabetes mellitus ([facility]) 07/22/2024 Brain aneurysm ([facility]) 05/09/2024 Overview (05/09/2024): Apr 2024 [facility]: Incidental intracranial aneurysm: Ms. 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[facility]) Prediabetes 04/27/2023 Sickle cell trait ([facility]) 01/13/2023 Overactive bladder 01/13/2023 Iron deficiency anemia 09/15/2022 Alpha thalassemia trait 09/15/2022 12/25/19 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[facility]) 09/15/2022 0 12/24/2022 Stage 3b chronic kidney disease ([facility]) 05/02/2022 Adrenal insufficiency (Thee's disease) ([facility]) 05/02/2022 History of stroke 05/02/2022 Overview (05/02/2022): Thalamic infarct [facility] 2019 Essential hypertension 04/23/2022 Other hyperlipidemia 04/23/2022 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[facility]) 0 04/23/2022 Overview (04/23/2022): On senior care use of prednisone due to this Encounters Date Type Department Care Team Description 03/21/2025 9:00 AM EDT BH/MH Visits [address] [address] Pedro Cordero LCSW 03/01/2025 9:15 AM EDT BH/MH Visits [address] [address] Pedro Cordero LCSW 02/15/2025 9:15 AM EDT BH/MH Visits [address] [address] Pedro Cordero LCSW 02/15/2025 Erroneous Telephone Encounter [address] [address] Rafaela Gilmore RN 02/07/2025 4:20 PM EDT Office Visit [address] [address] Delphine Mendez FNP 02/01/2025 9:15 AM EDT BH/MH Visits [address] [address] Pedro Cordero LCSW 01/18/2025 9:15 AM EDT BH/MH Visits [address] [address] Pedro Cordero LCSW 01/03/2025 2:45 PM EDT / Visits [facility] [phone] [place] [address] Pedro Cordero, NURSE OBGYN 12/28/2024 8:40 AM EDT Office Visit [facility] [address] [place] [phone] Rubin Delacruz FNP-C from Last 3 Months Social History Tobacco Use Types Packs/Day Years Used Date Smoking Tobacco: Never Passive Smoke Exposure: Never Smokeless Tobacco: Never Tobacco Cessation:Counseling Given: Not Answered Alcohol Use Standard Drinks/Week Comments Not Currently 0 (1 standard drink = 0.6 oz pur e alcohol) Social Connections Answer Date Recorded How often do you feel lonely or isolated from th ose around you? 1 10/06/2024 Financial Resource Strain Answer Date R ecorded Hard to pay for: Food 1 10/06/2024 Stress Answer Date Recorded Do you feel these kinds of stress these days? 1 10/06/2024 Physical Activity Answer Date Recorded Physical Activity 0 04/11/2022 Food Insecurity Answer Date Recorded Hard to pay for: Food 1 10/06/2024 Transportation Needs Answer Date Record ed Hard to pay for: Transportation 1 10/06/2024 Housing Stability Answer Date Recorded Hard to pay for: Rent/Mortgage payment 1 10/06/2024 Safety and Environment Answer Date Sincere rded Safety 0 04/11/2022 Utilities Answer Date Recorded Hard to pay for: Utilities 1 10/06 Employment Answer Date Recorded Stress 0 02/13/2023 Comments No Sex and Gender Information Value Date Recorded Sex Assigned at Female 04/11/2022 11:15 AM PDT Legal Sex Female 6:38 AM PDT Gender Identity Female 04/11/2022 11:15 AM PDT Sexual Orientation Straight 04/11/2022 11 :15 AM PDT Last Filed Vital Signs Vital Sign Reading Time Taken Comments Blood Pressure 130/75 02/07/2025 4:26 PM EDT Pulse 76 02/07/2025 4:26 PM EDT Temperature 36.9 C (98.5 F) 02/07/2025 4:26 PM EDT Respiratory Rate 16 02/07/2025 4:26 PM EDT Oxygen Saturation 96% 12/14/2024 11:00 AM EDT Inhaled Oxygen Concentration - - Weight 81.3 kg (179 lb 4.8 oz) 02/07/2025 4:26 P M EDT Height 175 cm (5' 8.9 ) 02/07/2025 4:26 PM EDT Body Mass Index 26.56 02/07/2025 4:26 PM EDT Plan of Treatment Upcoming Encounters Date Type Department Care Team (Late st Contact Info) Description 04/05/2025 9:15 AM EDT / Visits [facility] [phone] [place] [address] Pedro Cordero LCSW [address] [place] [address] Health Maintenance Due Date Last Done Comments Diabetes Foot Exam 1965 HPV Screening 1965 Urine Drug Screen 1965 [id number] (#1) 1970 Retinopathy Screening 1978 Imm-DTaP/Tdap/Td (1 - Tdap) 1984 Imm-Hepatitis B (1 of 3 - 19 + 3-dose series) 1984 Imm-Pneumococcal 50+ (1 of 2 - PCV) 1984 Imm-Zoster, Recombinant (1 of 2) 1984 CT Colonography 2010 Colonoscopy 2010 Colorectal Cancer Screening 2010 FIT/gFOBT 2010 Fecal DNA 2010 Flexible Sigmoidoscopy 2010 Breast Cancer Screening (Mammogram) 02/12/2024 08/14/2023, 01/30/2023, 08/01/2022, Additional history exists Dental BW 02/10/2025 02/09/2024 Dental Examination 02/10/2025 02/09/2024 Dental Prophy 02/21/2025 08/22/2024, 02/09/2024 Depression Monitoring 02/28/2025 11/29/2024 , 10/06/2024, 08/25/2024, Additional history exists Imm-Influenza (#1) 2025 Hemoglobin A1c 05/31/2025 11/29/2024, 01/2024, 03/12/2023, Additional history exists Lipid Screening 06/15/2025 06/15/2024, 09/2021, 04/11/2022 Dental Perio Charting 08/24/2025 08/22/2024 Annual Wellness (Adult): Indicated (All Coverage) 11/29/2025 11/29/2024, 06/16/2022 Anxiety Screening 11/29/2025 11/29/2024 Urine Albumin Creatinine Rat io Screening 11/29/2025 11/29/2024, 04/28/2023 Serum Creatinine 12/16/2025 12/16/2024, , 08/05/2024, Additional history exists Tobacco Screening 02/08/2026 02/08/2025 Pap Smear 05/15/2026 05/15/2023 Cervical Cancer Screening 05/15/2028 Pap + HPV 05/15/2028 05/15/2023 Dental FMX/Pano 02/10/2029 02/09/2024 HIV Screening Completed 09/02/2022, 09/02/2022 Hepatitis C Screening Completed 09/02/2022 Alcohol and Drug Screen Completed 11/30/19, 10/06/2024, 08/25/2024, Additional history exists Cervical Ablation/Cold-Knife Conization Discontinued Cervical Cryotherapy Discontinued Colposcopy Discontinued Endometrial Biopsy Discontinued Excision/Leep Discontinued HPV Genotyping Discontinued Vaginal Pap Discontinued Vulvoscopy Discontinued Procedures Procedure Name Priority Date/Time Associated Diagnosis Comments MEDICATIONS SCANNED DOCUMENT 01/18/2025 3:00 AM EDT OTHER ORDERS SCANNED DOCUMENT 01/10/2025 3:00 AM EDT COMPREHENSIVE METABOLIC PANEL Routine 11/29/2024 10:38 AM EDT Inadequately controlled diabetes mellitus ([facility]) Stage 3b chronic kidney disease ([facility]) MICROALBUMIN/CREATINI NE RATIO, URINE, RANDOM Routine 11/29/2024 10:38 AM EDT Inadequately controlled diabetes mellitus ([facility]) HEMOGLOBIN GLYCOSYLATED A1C Routine 11/29/2024 10:38 AM EDT Inadequately controlled diabetes mellitus ([facility]) Stage 3b chronic kidney disease ([facility]) Full PROPHYLAXIS - ADULT Routine 08/22/2024 9:00 AM EST Encounter for dental examination LIPID PANEL Routine 06/15/2024 9:39 AM EST Prediabetes Full [...] vagina as part of routine gynecological examination HIV 1/2 AG & AB W/RFLX (4TH GEN) Routine 09/02/2022 9:12 AM EST Routine general medical examination at a health care facility HEPATITIS C AB W/RFLX HCV RNA, QT, RT PCR Routine 09/02/2022 9:12 AM EST Routine general medical examination at a health care facility from Last 3 Months or Most Recently Relevant to Health Maintenance Results * MEDICATIONS SCANNED DOCUMENT (01/18/2025 3:00 AM EDT) 01/18/2025 3:00 AM EDT us [employer] SCHEDULE SUPERVISOR SCAN MEDS OTHER ORDERS Fi nal Result * OTHER ORDERS SCANNED DOCUMENT (01/10/2025 3:00 AM EDT) 01/10/2025 3:00 AM EDT us Matt Ever SCHEDULE SUPERVISOR SCAN OTHER ORDERS Final R esult * (ABNORMAL) MICROALBUMIN/CREATININE RATIO, URINE, RANDOM (11/29/2024 10:38 AM EDT) CREATININE, RANDOM URINE 419(H) 20 - 275 mg/dL [facility] Comment: Verified by repeat analysis. MICROALBUMIN 3.3 mg/dL [facility] Comment: Reference Range Not established MICROALBUMIN/CREA TININE RATIO, RANDOM URINE 8 <30 mg/g creat [facility] Comment: The ADA defines abnormalities in albumin excretion as follows: Albuminuria Category Result (mg/g creatinine) Normal to Mildly increased <30 Moderately increased 30-299 Severely increased > OR = 300 The ADA recommends that at least two of three specimens collected within a 3-6 month period be abnormal before considering a patient to be within a diagnostic category. Urine Urine specimen / Unknown 11/29/2024 10:38 AM EDT 11/29/2024 10:39 AM EDT Narrative [facility] - 11/30/2024 9:55 PM EDT FASTING:NO Matt Ever [facility] URINE AMBULATORY Mai l Result [facility] [address] [place] [address], [facility] [address] [place] [phone] * (ABNORMAL) HEMOGLOBIN GLYCOSYLATED A1C (11/29/2024 10:38 AM EDT) HEMOGLOBIN A1C 6.7(H) <5.7 % [facility] Comment: For someone without known diabetes, a [...] A1c for diagnosis of diabetes for children. Blood Blood / Unknown 11/29/2024 1 0:38 AM EDT 11/29/2024 10:39 AM EDT [facility] - 11/30/2024 9:55 PM EDT FASTING:NO Matt Ever SCHEDULE SUPERVISOR LAB - BLOOD DRAW Gonzalez tabares - Final [facility] [address] [address], [facility] [address] [place] [address] * (ABNORMAL) COMPREHENSIVE METABOLIC PANEL (11/29/2024 10:38 AM EDT) GLUCOSE 103 65 - 139 mg/dL [facility] Comment: Non-fasting reference interval UREA NITROGEN (BUN) 19 7 - 25 mg/dL [facility] CREATININE (blood) 1.30(H) 0.50 - 1.03 mg/dL [facility] EGFR 47(L) > OR = 60 mL/min/1. 73m2 [facility] BUN/CREATININE RATIO 15 6 - 22 (calc) [facility] SODIUM 146 135 - 146 mmol/L [facility] POTASSIUM 3.5 3.5 - 5.3 mmol/L [facility] CHLORIDE 106 98 - 110 mmol/L [facility] CARBON DIOXIDE 31 20 - 32 mmol/L [facility] CALCIUM 9.9 8.6 - 10.4 mg/dL [facility] PROTEIN, TOTAL 6.2 6.1 - 8.1 g/dL [facility] ALBUMIN 4.4 3.6 - 5.1 g/dL [facility] GLOBULIN 1.8(L) 1.9 - 3.7 g/dL (calc) [facility] ALBUMIN/GLOBULI N RATIO 2.4 1.0 - 2.5 (calc) [facility] BILIRUBIN, TOTAL 0.5 0.2 - 1.2 mg/dL [facility] ALKALINE PHOSPHATASE 81 37 - 153 U/L [facility] AST 19 10 - 35 U/L [facility] ALT 31(H) 6 - 29 U/L [facility] Blood Blood / Unknown 11/29/2024 1 0:38 AM EDT 11/29/2024 10:39 AM EDT Narrative [facility] - 11/30/2024 9:55 PM EDT FASTING:NO Matt Curtis [facility] - BLOOD DRAW Edited R esult - Final Performing Organization Address City/[facility]/ZIP Co de Phone Number [facility] [address] [address], [facility] [address] [address] * (ABNORMAL) LIPID PANEL (06/15/2024 9:39 AM EST) CHOLESTEROL, TOTAL 154 <200 mg/dL [facility] HDL CHOLESTEROL 69 > OR = 50 mg/dL [facility] TRIGLYCERIDES 199(H) <150 mg/dL [facility] LDL-CHOLESTEROL 58 99 mg/dL (calc) [facility] Comment: Reference range: <100 Desirable range <100 mg/dL for primary prevention; <70 mg/dL for patients with CHD or diabetic patients with > or = 2 CHD risk factors. LDL-C is now calculated using the Peggy calculation, which is a validated novel method providing better accuracy than the Friedewald equation in the estimation of LDL-C. Tanmay ANDRES et al. RAMONA. 2013;310(19): 2586-3894 (http://education.[employer]/faq/EPU572) CHOL/HDLC RATIO 2.2 <5.0 (calc) [facility] NON-HDL CHOLESTEROL 85 <130 mg/dL (calc) [facility] Comment: For patients with diabetes plus 1 major ASCVD risk factor, treating to a non-HDL-C goal of <100 mg/dL (LDL-C of <70 mg/dL) is considered a therapeutic option. Blood Blood / Unknown 06/15/2024 9 :39 AM EST 06/15/2024 9:41 AM EST Matt Curtis [facility] - BLOOD DRAW Final Re sult Performing Organization Address [facility]/ZIP Co de Phone Number [facility] [address] [address], [facility] [address] [address] * HISTORIC MAMMOGRAM (08/14/2023 3:00 AM EST) 08/14/2023 3:00 AM EST Matt PurdyEver SCHEDULE SUPERVISOR IMG MAMMO Final Res ult * THIN PREP PAP + HPV RNA E6/E7 (Q) (05/15/2023 9:11 AM EDT) CLINICAL INFORMATION See Note [facility] Comment:Normal exam LMP See Note [facility] Comment:NONE GIVEN PREV. PAP See Note [facility] Comment:NONE GIVEN PREV. BX See Note [facility] Comment:NONE GIVEN SOURCE See Note [facility] Comment:Cervix STATEMENT OF ADEQUACY See Note [facility] Comment:SATISFACTORY FOR BORIS LUATION INTERPRETATION/RESU LT See Note [facility] Comment: Cytology Results: Negative for intraepithelial lesion or malignancy. Atrophic pattern; predominantly parabasal cells DREDGE LEVER OPERATOR See Note [facility] Comment: KN, CT(ASCP) CT screening location: [place] [address] COMMENT [facility] HPV MRNA E6/E7 Not Detected Not Detected [facility] Comment: Methodology: Tack Cutter-Mediated Amplification This assay detects E6/E7 viral messenger RNA (mRNA) from 14 high-risk HPV types (16,18,31,33,35,39,45,51,52,56,58,59,66,68). Cervical sources are required for HPV testing. If a vaginal source from a patient who has had a total hysterectomy with removal of cervix was submitted, please contact the testing laboratory for alternative testing options. For additional information, please refer to http://education.[employer]/faq/HXD831h2 (This link if provided for information/ educational purposes only.) CYTOLOGY Cervix uteri structure / Unknown 05/15/2023 9:11 AM EDT 05/18/2023 5:02 AM EDT Narrative [facility] - 05/18/2023 10:19 PM EDT EXPLANATORY NOTE: [...] clinical information. Abelardo Roa MD LAB - PATHOLOGY AND CYTOLOGY AM BULATORY Final Result Performing Organization Address [facility] Co de Phone Number [facility] [address] [address], [facility] [address] [address] * Hep C Antibody with Reflex HCV RNA (09/02/2022 9:12 AM EST) HEPATITIS C ANTIBODY NON-REACT HAYDEN NON-REACT HAYDEN [facility] SIGNAL TO CUT-OFF 0.06 <[address] [facility] Comment: HCV antibody was non-reactive. There is no laboratory evidence of HCV infection. In most cases, no further action is required. However, if recent HCV exposure is suspected, a test for HCV RNA (test code 86069) is suggested. For additional information please refer to http://education.[employer]/faq/SZN00v6 (This link is being provided for informational/ educational purposes only.) Blood Blood / Unknown 09/02/2022 9 :12 AM EST 09/02/2022 9:12 AM EST Rubin Delacruz SCHEDULE SUPERVISOR-C LAB - BLOOD DRAW Edited R esult - Final Performing Organization Address City/[facility]/ZIP Co de Phone Number [facility] [address] [address], [facility] [address] ([address]) [place] [address] * HIV 1/2 AG & AB W/RFLX (4TH GEN) (09/02/2022 9:12 AM EST) HIV AG/AB, 4TH GEN NON-REAC TIVE NON-REAC TIVE [facility] Comment: HIV-1 antigen and HIV-1/HIV-2 antibodies were not detected. There is no laboratory evidence of HIV infection. PLEASE NOTE: This information has been disclosed to you from records whose confidentiality may be protected by state law. If your state requires such protection, then the state law prohibits you from making any further disclosure of the information without the specific written consent of the person to whom it pertains, or as otherwise permitted by law. A general authorization for the release of medical or other information is NOT sufficient for this purpose. For additional information please refer to http://education.[employer]/faq/TWF315 (This link is being provided for informational/ educational purposes only.) The performance of this assay has not been clinically validated in patients less than 2 years old. Blood Blood / Unknown 09/02/2022 9 :12 AM EST 09/02/2022 9:12 AM EST Rubin Delacruz SCHEDULE SUPERVISOR-C LAB - BLOOD DRAW Final Re sult [facility] [address] [address], [facility] [address]) [place] [address] from Last 3 Months or Most Recently Relevant to Health Maintenance [place] [address] [facility] [facility] Care Teams Head Resident Relationship Specialty Start Date End Date Matt Curtis FNP [address] [place] [address] PCP - General Family Medicine, ANCHORMAN 02/24/23
--- OUTSIDE RECORDS SUMMARY | 2025-03-28 10:44 | XMS_ITS | Clinical Summary ---
Author Organization [facility] Address [address] [place] [address] Care Team Providers Care Manager Of Case Name Role Phone Fito Rush PA-C Primary [...] times a day. 0 02/26/2023 Active Biotin 53569 MCG TABS Take by mouth. 0 Active [...] 61 06/10/2024 10:14 AM EDT Temperature 36.7 C (98 F) 06/10/2024 10:14 AM EDT Respiratory Rate 18 06/10/2024 10:1 [...] Cancer Screening (Mammogram) 2015 Influenza Vaccine (#1) 2025 Hepatitis C Screening Completed 09/02/2022 RSV Ped < 20 months Aged Out No longe r eligible based on patient's age to complete this topic Care Teams Manager Of Case Relationship Specialty Start Date End Date Fito Rush PA-C [address] [place] [address] PCP - General Physician Test Borer 07/17/23
--- OUTSIDE RECORDS SUMMARY | 2025-03-28 10:44 | XMS_ITS | Clinical Summary ---
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/2023 Chronic kidney disease stage 3A 05/02/2022 03/25/2023 Essential hypertension 04/23/2022 Resolved Problems Problem Noted Date Diagnosed Date Resolved Date Cardiac murmur 03/25/2023 03/25/2023 03/25/2023 Gastroesophageal reflux disease 03/25/2023 3 03/25/2023 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 03/25/202303/25/2023 Overactive bladder 01/13/2023 03/25/2023 Alpha thalassemia trait 09/15/2022 03/25/202303/10 Hemoglobinopathy 09/15/2022 03/25/2023 03/25/2023 Serum protein above reference range 09/15/2022 03/25/2023 Other fatigue 09/15/2022 03/25/2023 03/25/2023 Sickle cell trait 09/15/2022 03/25/2023 03/25/2023 History of cerebrovascular accident 05/02/202203/2503/25/2023 Overview (03/25/2023): Thalamic infarct [facility] Disorder of pituitary gland 04/23/2022 03/25/2023 03/25/2023 Overview (03/25/2023): On custodial use of prednisone due to this Other [...] Last Done Comments Breast Cancer Screening 1965 Hepatitis B Vaccine (1 of 3 - 19+ 3-dose series) 09/12 Pneumococcal Vaccine: 50+ Years (1 of 2 - PCV) 985 Colorectal Cancer Screening: Annual FOBT 2014 Colorectal Cancer Screening: Colonoscopy 2014 Colorectal Cancer Screening: Sigmoidoscopy 2014 Influenza Vaccine (#1) 2025 [place] Medicaid [place] * Guarantor: Shona Rodriguez Account Type Relation to Patient Date of Phone Billing Address Personal/Family Self 1965 [address] [place] [address] Care Teams Lang Interpreter Relationship Specialty Start Date End Date Abelardo Morgan MD [address] [place] [address] PCP - General Endocrinology 10/02/23
[2025-03-28 13:32] LABS: Anion Gap 12 (12-20); Blood Urea Nitrogen 27 mg/dL (9-16); Carbon Dioxide 28 mmol/L (22-29); Chloride 110 mmol/L (96-108); Estimated Glomerular Filt Rate 32; Potassium 4.0 mmol/L (3.3-5.1); Sodium 146 mmol/L (135-145)
== END 2025-03-28 09:40 | disposition home or self-care (01) ==
LOC: HO.HKASLDS 09:39
PROVIDERS: Visit Provider Internal Medicine Nephrology
DX: I12.9 Hypertensive chronic kidney disease with stage 1 through stage 4 chronic kidney disease, or unspecified chronic kidney disease (principal); N18.31 Chronic kidney disease, stage 3a; E87.6 Hypokalemia
CPT/HCPCS: 36415; 80051; 82565; 84520

== ENCOUNTER 2025-04-04 09:22 | Outpatient (AMB) | payer MEDICAID, SELFPAY ==
--- OUTSIDE RECORDS SUMMARY | 2024-05-13 09:15 | XMS_ITS | Encounter Summary ---
Author Organization [facility] Address [id number] [place] [phone] Care Team Providers Care Manager City Name Role Phone Fito Rush Primary Care Provider [phone] Encounter Details Date Type Department Care Team (Late Contact Info) Description 05/13/2024 9:15 AM EDT Hospital Encounter TH HISTORIC ENCOUNTERS [facility] CONVERSION ONLY Clarisa Vazquez MD [address] [place] [address] Social History Tobacco Use Types Packs/Day Years Used Date Smoking Tobacco: Never Smokeless Tobacco: Never Alcohol Use Standard Drinks/Week Comments Never 0 (1 standard drink = 0.6 oz pur e alcohol) Comments Unknown Sex and Gender Information Value Date Recorded Sex Assigned at Female 10/25/2024 9:57 AM EDT Legal Sex Female 9:36 AM EST Gender Identity Female 10/25/2024 9:57 AM EDT Sexual Orientation Not on file documented as of this encounter Plan of Treatment Upcoming Encounters Date Type Department Care Team (Late Contact Info) Description 04/25/2025 9:30 AM EDT Office Visit Endocrinology [address] [phone] Deyanira Escalante MD [address] [place] [address] 05/10/2025 10:45 AM EDT Office Visit Orthopedic Surgery - [place] [address] [phone] Goyo Noriega DPM [address] [place] [address] 06/05/2025 9:15 AM EDT Office Visit [facility] Hematology Oncology [address] [place] [phone] Joyce-Clarisa Palomo MD [address] [place] [address] documented as of this encounter Visit Diagnoses Not on filedocumented in this encounter Care Teams Manager City Relationship Specialty Start Date End Date Fito Rush PA [address] [place] [address] PCP - General 07/17/23 documented as of this encounter
--- OUTSIDE RECORDS SUMMARY | 2024-05-13 09:52 | XMS_ITS | Encounter Summary ---
Author Organization [facility] Address [address] [place] [address] Care Team Providers Care Sulfur Burner Name Role Phone Fito Rush Primary Care Provider [phone] Encounter Details Date Type Department Care Team (Late st Contact Info) Description 05/13/2024 9:52 AM EDT Hospital Encounter TH HISTORIC ENCOUNTERS [facility] CONVERSION ONLY Social History Tobacco Use Types Packs/Day Years [...] on file documented as of this encounter Last Filed Vital Signs Vital Sign Reading Time Taken Comments Blood Pressure - - Pulse - - Temperature - - Respiratory Rate - - Oxygen Saturation - - Inhaled Oxygen Concentration - - Weight 88.9 kg (195 lb 15.8 oz) 11:04 AM EDT Height 175.3 cm (5' 9 ) 05/13/2024 9:20 AM EDT Body Mass Index 28.94 05/13/2024 9:20 AM EDT documented in this encounter Progress Notes * Historical, Notes Results - 05/13/2024 9:30 AM EDT Patient arrives ambulatory after md appointment. Patient states she is tired but states she had to walk here this morning after dropping off her car. She states it took her 30 minutes to walk her andshe is fatigued. She denies sob. She denies any pain. She denies n/v/d. She states she has worked on increasing her water intake. Patient talks about her social problems with broken this at home and her boyfriend. There relationship is more of an issue for her and she doesn't feel supported by him. Offered listening and support. Stat labs needed and drawn from right AC. Patient tolerated well. All needs met, call nieves at reach, will monitor. * Historical, Notes Results - 05/13/2024 9:30 AM EDT Patients labs reviewed ok to treat. Patient again refuses hydration stating she does not want a iv placed. She states she will increaseher fluid intake. * Historical, Notes Results - 05/13/2024 9:30 AM EDT Patient given injection in right lower quadrant of abdomen. Patient tolerated well. She then pulledher pants all the way down to show this rn a small red area to left lower. MD states saw and does not need antibiotics. Told patient to just call if anything gets worse and we discussed worsening s/sof infection. Patient did request a refill on potassium, sent to md. Patient given next appointment, left stable and ambulatory- instructed to call with any questions or concerns. documented in this encounter Plan of Treatment Upcoming Encounters Date Type Department Care Team (Late st Contact Info) Description 04/25/2025 9:30 AM EDT Office Visit Endocrinology [address] [phone] Deyanira Escalante MD [address] [place] [address] 05/10/2025 10:45 AM EDT Office Visit Orthopedic Surgery - [place] [address] [place] [address] [address] [place] [phone] Goyo Noriega DPM [address] [place] [address] 06/05/2025 9:15 AM EDT Office Visit [facility] Hematology Oncology [address] [place] [phone] Joyce-Clarisa Palomo MD [address] [place] [address] documented as of this encounter Visit Diagnoses Not on filedocumented in this encounter Care Teams Sulfur Burner Relationship Specialty Start Date End Date Fito Rush PA [address] [place] [address] PCP - General 07/17/23 documented as of this encounter
--- OUTSIDE RECORDS SUMMARY | 2024-05-20 09:09 | XMS_ITS | Encounter Summary ---
Author Organization [facility] Address [address] [place] [address] Care Team Providers Care Hat Presser Name Role Phone Fito Rush Primary Care Provider [phone] Encounter Details Date Type Department Care Team (Late st Contact Info) Description 05/20/2024 9:09 AM EDT Hospital Encounter TH HISTORIC ENCOUNTERS [...] Progress Notes * Historical, Notes Results - 05/20/2024 9:00 AM EDT Patient arrives for tx today in good spirits and states she is feeling well. She shows this RN a ?abscess to left lower abdomen. Patient states + drainage, yellow and red blood. Patient denies pain. It does sit right on her pant line and seems to be irritating the area more. There is a black dime size area and puss noted around it. Patient states she saw her pcp who has f/u with her Thursday and states he said he is probably going to toney it on Thursday Patient denies fevers, denies chills. Sent MD secure halo message with picture and he states hold tx today and postpone x 2 weeks. * Historical, Notes Results - 05/20/2024 9:00 AM EDT Patient to see MD in 2 weeks before possible tx. Patient is calling her pcp today for f/u and states I have the surgeon who took care of these things on my vagina too and I will call him Patient was discouraged about not getting treatment today. We talked in detail and patient understanding of education and need to hold tx. She left stable and ambulatory, instructed to call with any questions or concerns. documented in this encounter Plan of Treatment Upcoming Encounters Date Type Department Care Team (Late st Contact Info) Description 04/25/2025 9:30 AM EDT Office Visit Endocrinology [address] [address] Deyanira Escalante MD [address] [place] [address] 05/10/2025 10:45 AM EDT Office Visit Orthopedic Surgery - [place] [address] [phone] Goyo Noriega DPM [address] [place] [address] 06/05/2025 9:15 AM EDT Office Visit [facility] Hematology Oncology [address] [place] [phone] Clarisa Vazquez MD [address] [place] [phone] documented as of this encounter Visit Diagnoses Not on filedocumented in this encounter Care Teams Hat Presser Relationship Specialty Start Date End Date Fito Rush PA [address] [place] [address] PCP - General 07/17/23 documented as of this encounter
--- OUTSIDE RECORDS SUMMARY | 2024-06-03 09:45 | XMS_ITS | Encounter Summary ---
Author Organization [facility] Address [id number] [place] [address] Care Team Providers Care Gas Cutting Machine Operator Name Role Phone Fito Rush Primary Care Provider [phone] Encounter Details Date Type Department Care Team (Late Contact Info) Description 06/03/2024 9:45 AM EDT Hospital Encounter TH HISTORIC ENCOUNTERS EASTERN CONVERSION ONLY Lia Pendleton MD [address] [place] [address] Social History Tobacco Use Types Packs/Day Years [...] 04/25/2025 9:30 AM EDT Office Visit Endocrinology [address] [address] Deyanira Escalante MD [address] [place] [address] 05/10/2025 10:45 AM EDT Office Visit Orthopedic Surgery - [place] [address] [phone] Goyo Noriega DPM [address] [place] [address] 06/05/2025 9:15 AM EDT Office Visit [facility] Hematology Oncology [address] [place] [address] Joyce-Clarisa Palomo MD [address] [place] [address] documented as of this encounter Visit Diagnoses Not on filedocumented in this encounter Care Teams Gas Cutting Machine Operator Relationship Specialty Start Date End Date Fito Rush PA [address] [place] [address] PCP - General 07/17/23 documented as of this encounter
--- OUTSIDE RECORDS SUMMARY | 2024-06-03 09:47 | XMS_ITS | Encounter Summary ---
Author Organization [facility] Address [address] [place] [address] Care Team Providers Care Business Supervisor Name Role Phone Fito Rush Primary Care Provider [phone] Encounter Details Date Type Department Care Team (Late st Contact Info) Description 06/03/2024 9:47 AM EDT Hospital Encounter TH HISTORIC ENCOUNTERS EASTERN CONVERSION ONLY Lia Pendleton MD [address] [place] [id number] Social History Tobacco Use Types Packs/Day Years [...] Sign Reading Time Taken Comments Blood Pressure 169/86 06/03/2024 9:51 AM EDT Sitting Left arm Pulse 55 06/03/2024 9:51 AM EDT Temperature - - Respiratory Rate - - Oxygen Saturation - - Inhaled Oxygen Concentration - - Weight 88.9 kg (195 lb 15.8 oz) 06/03/2024 11:04 AM EDT Height 175.3 cm (5' 9 ) 05/13/2024 9:20 AM EDT Body Mass Index 28.94 05/13/2024 9:20 AM EDT documented in this encounter Progress Notes * Lia Pendleton MD - 06/03/2024 9:45 AM EDT CHIEF COMPLAINT: Follow-up IDENTIFIER:Shona Rodriguez is a 58 y.o. female. HPI: Patient is a 58-year-old -Macedonian female who has IgM kappa monoclonal gammopathy/lymphoplasmacytic lymphoma, patient earlier this year had rituximab infusion weekly for 4 time and patient hasbeen on Velcade, currently on 6 cycle. ROS: GENERAL: Has been feeling fair, no fever chills night sweats but lately having issues with vision HEENT: no headache but noticed significant worsening of her vision lately NECK: No discomfort or lumps. RESPIRATORY: No significant cough or shortness of breath CARDIOVASCULAR: No chest pain. GI: No abdominal discomfort, blood in stools or black stools, abdominal wall lesion has been healing MUSCULOSKELETAL: No joint pain or swelling, back pain, or muscle pain. 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 BCN OP RITUXIMAB (IV/SC) WEEKLY X4 Plan Provider: Clarisa Palomo MD Treatment goal: Palliative Line of treatment: First Line 10/08/2023 - Chemotherapy SF BCN OP BORTEZOMIB SC OR IVP, DAYS 1,8,15,22 (2 HRS) Plan Provider: Clarisa Palomo MD Treatment goal: Palliative Line of treatment: First Line PAST MEDICAL HISTORY: Patient Active Problem List Diagnosis SNOMED CT(R) ??? Microcytic anemia MICROCYTIC ANEMIA ??? 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HCC) HEMOGLOBINOPATHY ??? Sickle cell trait (HCC) SICKLE CELL TRAIT ??? Alpha thalassemia trait ALPHA TRAIT THALASSEMIA ??? Stage 3a chronic kidney disease (HCC) CHRONIC KIDNEY DISEASE STAGE 3A ??? Other fatigue FATIGUE ??? High serum protein level SERUM PROTEIN ABOVE REFERENCE RANGE ??? Iron deficiency anemia IRON DEFICIENCY ANEMIA ??? MGUS (monoclonal gammopathy of unknown significance) MONOCLONAL GAMMOPATHY OF UNCERTAIN SIGNIFICANCE ??? 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 Cellulitis of abdominal wall CELLULITIS OF ABDOMINAL WALL ??? Skin rash ERUPTION ??? Cellulitis of left breast CELLULITIS OF BREAST Past Medical History: Diagnosis Date ??? 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HCC) ??? Oilton's disease (HCC) ??? Anemia ??? Chronic kidney disease ??? Hypertension ??? Iron deficiency anemia 01/27/2023 ??? Stroke (HCC) SOCIAL HISTORY: She never smoked She denies alcohol use and abuse She is single FAMILY HISTORY: Noncontributory Current Outpatient Medications: ??? atorvastatin (LIPITOR) tablet 40 mg, , Disp: , Rfl: ??? Biotin 94907 MCG TABS, Take by mouth., Disp: , Rfl: ??? carvedilol (COREG) 6.25 MG tablet, Take 1 tablet (6.25 mg total) by mouth 2 (two) times a day.,Disp: , Rfl: ??? Cholecalciferol (Vitamin D3) 50 MCG (1999 UT) capsule, , Disp: , Rfl: ??? FeroSul 325 (65 Fe) MG tablet, Take 1 tablet (325 mg total) by mouth once. Take one tablet oncedaily, Disp: , Rfl: ??? folic acid (FOLVITE) tablet 1 mg, , Disp: , Rfl: ??? hydrocortisone (CORTEF) tablet 5 mg, Take 1 tablet (5 mg total) by mouth daily. In the afternoon, Disp: , Rfl: ??? hydrocortisone (CORTEF) tablet 5 mg, Take 2 tablets (10 mg total) by mouth daily., Disp: , Rfl: ??? potassium chloride ER (K-DUR) 10 MEQ tablet, Take 1 tablet (10 mEq total) by mouth 2 (two) times a day., Disp: 180 tablet, Rfl: 1 You are allergic to the following Date Reviewed: 06/03/2024 Allergen Reactions Penicillins Hives Seasonal Other (See Comments) Runny eyes , runny nose PHYSICAL EXAM: BP 169/86 (BP Location: Left arm) Pulse 55 Temp 96.8 ??F (36 ??C) (Temporal) Wt 88.9 kg (196 lb) SpO2 100% BMI 28.94 kg/m?? ECOG 0-1 APPEARANCE: Alert and oriented in no acute distress EYES: Congestion of both conjunctiva with mild erythema ORAL CAVITY: No erythema or exudates NECK: Neck supple, no significant adenopathy, HEART: normal S1 and S2 LUNG: clear to auscultation bilaterally LYMPH NODES: No palpable superficial adenopathy ABDOMEN: Obese, distended, soft, nontender and no gross organomegaly appreciated, there is healing skin lesion in the left lower quadrant, no sign of cellulitis EXTREMITIES: No significant edema erythema or tenderness LABS: BUN 18 creatinine 1.29 Calcium 9.5 Normal liver function test WBC 10.4, hemoglobin 11.3 g, hematocrit 35.1% and platelet count 214 IMPRESSION: SNOMED CT(R) 1. 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HCC) MALIGNANT LYMPHOMA - LYMPHOPLASMACYTIC 2. IgM kappa monoclonal gammopathy KAPPA LIGHT CHAIN DISEASE 3. Stage 3a chronic kidney disease (HCC) CHRONIC KIDNEY DISEASE STAGE 3A 58-year-old -Macedonian female, who has multiple medical issues including IgM kappa monoclonalgammopathy/lymphoplasmacytic lymphoma, patient earlier this year had rituximab infusion and has been on Velcade weekly, patient has 2 more weekly Velcade to go and after that plan is to have rituximab infusion but unfortunately patient has been having some worsening visual symptom, seen by an choke setter locally who is not sure etiology of her worsening vision in both eyes, I am not sure about potential progression of her hematological disorder so I will check serum viscosity, serum light chains etc. if it significantly high we may consider giving Rituxan with Bendamustine next month or if it is very high serum viscosity there is a possibility of plasmapheresis. I explained patient about rationale of continuing Velcade, she had only 2 Velcade injection to go and after that she will be having rituximab infusion, she will be seeing Dr. Palomo in next 2 to 3-week PLAN: Restart Velcade I will check IgM, serum viscosity, serum light chain etc. today along with blood count and chemistries Lia Pendleton MD documented in this encounter Plan of Treatment Upcoming Encounters Date Type Department Care Team (Late st Contact Info) Description 04/25/2025 9:30 AM EDT Office Visit Endocrinology [address] [address] Deyanira Escalante MD [address] [place] [address] 05/10/2025 10:45 AM EDT Office Visit Orthopedic Surgery - [place] 250 175 [facility] 250 [place] [phone] Goyo Noriega DPM [address] [place] [address] 06/05/2025 9:15 AM EDT Office Visit [facility] Hematology Oncology [address] [place] [address] Clarisa Vazquez MD [address] [place] [phone] documented as of this encounter Procedures Procedure Name Priority Date/Time Associated Diagnosis Comments ..MISCELLANEOUS REFERENCE LAB TEST 06/03/2024 documented in this encounter Results * Miscellaneous reference lab test (06/03/2024) us Provider Onbase LAB BLOOD ORDERABLES Final Re sult documented in this encounter Visit Diagnoses Not on filedocumented in this encounter Care Teams Business Supervisor Relationship Specialty Start Date End Date Fito Rush PA [address] [place] [address] PCP - General 07/17/23 documented as of this encounter
--- OUTSIDE RECORDS SUMMARY | 2024-06-03 10:38 | XMS_ITS | Encounter Summary ---
Author Organization [facility] Address [address] [place] [address] Care Team Providers Care Churn Operator Margarine Name Role Phone Fito Rush Primary Care Provider [phone] Encounter Details Date Type Department Care Team (Late st Contact Info) Description 06/03/2024 10:38 AM EDT Hospital Encounter TH HISTORIC ENCOUNTERS [...] Weight 88.9 kg (195 lb 15.8 oz) 024 11:04 AM EDT Height 175.3 cm (5' 9 ) 05/13/2024 9:20 AM EDT Body Mass Index 28.94 05/13/2024 9:20 AM EDT documented in this encounter Progress Notes * Historical, Notes Results - 06/03/2024 10:00 AM EDT Patient arrives ambulatory for tx after seeing Dr. Pendleton, filling in for dr. aPlomo. The ?abscess to left lower abdominal wall has healed. There is no redness, no warmth, no drainage and no s/s of infection. Patient states healed pretty good Patient did the production control specialist this morning and states Dr. Pendleton wants you to do labs he thinkhe knows what this is and thinks we can treat it here so I dont have to go to [place] to see anotherspecialist Patient states she has white spots on the inside of her eyelids. Patients eyes are watering but no redness. She denies any vision changes. Patient still dealing with social issues at home related to renovations and her boyfriend, again offered support and listening. Labs drawn peripherally from right AC and sent stat per order from MD. All needs met at this time, call nieves at [facility], will monitor. * Historical, Notes Results - 06/03/2024 10:00 AM EDT Labs reviewed with pt and ok to treat. IgM reported to md. It is high but much improved since her last one. Patient very happy with lab results, ok to treat. * Historical, Notes Results - 06/03/2024 10:00 AM EDT Patient given injection in right lower quadrant without incident. Patient given next appointment. She is aware after next tx she will most likely being changed to infusion. Patient left stable and ambulatory, instructed to call with any questions or concerns. documented in this encounter Plan of Treatment Upcoming Encounters Date Type Department Care Team (Late st Contact Info) Description 04/25/2025 9:30 AM EDT Office Visit Endocrinology [address] [address] Deyanira Escalante MD [address] [place] [address] 05/10/2025 10:45 AM EDT Office Visit Orthopedic Surgery - [place] [address] [place] [phone] Goyo Noriega DPM [address] [place] [address] 06/05/2025 9:15 AM EDT Office Visit [facility] Hematology Oncology [address] [place] [phone] Joyce-Clarisa Palomo MD [address] [place] [address] documented as of this encounter Visit Diagnoses Not on filedocumented in this encounter Care Teams Churn Operator Margarine Relationship Specialty Start Date End Date Fito Rush PA [address] [place] [address] PCP - General 07/17/23 documented as of this encounter
--- OUTSIDE RECORDS SUMMARY | 2024-06-10 09:30 | XMS_ITS | Encounter Summary ---
Author Organization [facility] Address [address] [place] [address] Care Team Providers Care Shell Molding Roller Blast Operator Name Role Phone Fito Rush Primary Care Provider [phone] Encounter Details Date Type Department Care Team (Latest Contact Info) Description 06/10/2024 9:30 AM EDT Hospital Encounter TH HISTORIC ENCOUNTERS EASTERN CONVERSION ONLY Small cell B-cell lymphoma, unspecified site ([facility] V24, [facility] V28) Social History Tobacco Use Types Packs/Day Years [...] Progress Notes * Historical, Notes Results - 06/10/2024 9:30 AM EDT Patient arrives ambulatory. Patient is in good spirits and has no acute complaints. Patient tells this RN I'm not going to [facility] for my eyes until I see dr. Palomo She states she saw md last week who thought we could handle this here she states he told her she has to go to [place] but patient has ride issues and states I decided I'm not going anything until I talk with my oncologist She states today eyes are normal no drainage, no redness. Patient also is aware today is her last velcade. She will have next week off before seeing MD the following week and possible re-start of rituxan. Peripheral labs drawn from right ac and sent stat. Labs reviewed, ok to treat. Patient tells this RN she didn't take her meds yesterday or yet today. She doesn't want to take potassium at this time and states ill start it up again today Velcade injection given in right lower quadrant of abdomen without issues. Patient left stable and ambulatory, instructed to call with any questions or concerns. documented in this encounter Plan of Treatment Upcoming Encounters Date Type Department Care Team (Late st Contact Info) Description 04/25/2025 9:30 AM EDT Office Visit Endocrinology [address] [phone] Deyanira Escalante MD [address] [place] [address] 05/10/2025 10:45 AM EDT Office Visit Orthopedic Surgery - [place] [address] [phone] Goyo Noriega DPM [address] [place] [address] 06/05/2025 9:15 AM EDT Office Visit [facility] Hematology Oncology [address] [place] [phone] Clarisa Vazquez MD [address] [place] [phone] documented as of this encounter Visit Diagnoses Diagnosis Small cell B-cell lymphoma, unspecified site (CMS/HCC V24, CMS/HCC V28) documented in this encounter Care Teams Shell Molding Roller Blast Operator Relationship Specialty Start Date End Date Fito Rush PA [facility] [place] [address] PCP - General 07/17/23 documented as of this encounter
--- NOTE | 2025-04-04 09:27 | HO.NEPHOV_ITS ---
Vital Signs 04/04/25 09:29 Height 5 ft 9 in Weight 172 lb 8 oz BMI 25.5 BP 122/60 Blood Pressure Location Lt brachial Position Sitting Pulse 68 Pulse Source Pulse Oximeter Pulse Oximetry (%) 98 Oxygen Delivery Method Room Air Intake Visit Reasons: 6mon follow-up w/labs Platform Supervisor Required: No Accompanied by: Self / Same As Patient Allergies ampicillin Allergy (Verified 04/04/25 09:29) Unknown Penicillins Allergy (Verified 04/04/25 09:29) Unknown HPI Comments Details: Maggy was seen in follow-up for chronic kidney disease. She has history of 1 small kidney. 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 She had undergone PLEX. She had been getting treatment by her criminal intelligence specialist. She does not have any chest pain, shortness of breath, nausea vomiting, diarrhea, dizziness or edema. She does not take any nonsteroidal anti-inflammatory medications, drugs. She is not a smoker. She claims to be compliant with her medications. There were no other new complaints at the time of this office visit. [facility] Medical History (Updated 04/04/25 @ 09:33 by Anton Corral MD) Chronic kidney disease, stage 3b Essential (primary) hypertension Surgical History H/O eye surgery H/O removal of cyst Family History Mother Pancreatic cancer Kidney disease Social History Alcohol intake: never Patient Tobacco Use Status: Never used Tobacco Review of Systems Const All systems reviewed & are unremarkable except as noted in HPI and below Physical Exam Vital Signs: Last Vital Signs Pulse 68 04/04/25 09:29 BP 122/60 04/04/25 09:29 Pulse Ox 98 04/04/25 09:29 Oxygen Delivery Method Room Air 04/04/25 09:29 BMI result Body Mass Index 25.5 Const General: comfortable and no acute distress Orientation/consciousness: patient oriented x3 HEENT Head: Yes normocephalic Mouth: Normal oral and palatal mucosa present Eyes EOM: EOMs intact bilaterally Neck Neck: Yes supple Resp Auscultation: clear to auscultation bilaterally Cardio Jugular venous distension: no JVD Rate: regular rate GI Palpation (GI): Soft to palpation Auscultation: normal bowel sounds General: Yes no CVA tenderness Back/Spine/Pelvis Back: no CVA tenderness Skin General skin exam: no rashes or lesions noted Neuro General: patient oriented x3 and moves all extremities Extrem General: Yes no pedal edema Assessment & Plan Assessment & Plan (1) Chronic kidney disease, stage 3b: Code(s): N18.32 - Chronic kidney disease, stage 3b Category: Medical (2) Essential (primary) hypertension: Code(s): I10 - Essential (primary) hypertension Category: Medical (3) Small right kidney: Code(s): N27.0 - Small kidney, unilateral Category: Medical Plan Her renal functions is stable at baseline. She is followed by her Game Moderator. She is on carvedilol. She is on Jardiance. She does not need a renal biopsy now. I ordered F/U labs in 6 months. All questions answered. Orders: Orders Complete Blood Count Auto Diff 6 Months I10 - Essential (primary) hypertension, N18.32 - Chronic kidney disease, stage 3b, N27.0 - Small kidney, unilateral Creatinine 6 Months I10 - Essential (primary) hypertension, N18.32 - Chronic kidney disease, stage 3b, N27.0 - Small kidney, unilateral Electrolytes 6 Months I10 - Essential (primary) hypertension, N18.32 - Chronic kidney disease, stage 3b, N27.0 - Small kidney, unilateral Blood Urea Nitrogen 6 Months I10 - Essential (primary) hypertension, N18.32 - Chronic kidney disease, stage 3b, N27.0 - Small kidney, unilateral Calcium 6 Months I10 - Essential (primary) hypertension, N18.32 - Chronic kidney disease, stage 3b, N27.0 - Small kidney, unilateral Phosphorus 6 Months I10 - Essential (primary) hypertension, N18.32 - Chronic kidney disease, stage 3b, N27.0 - Small kidney, unilateral Protein Creatinine Ratio, Ur 6 Months I10 - Essential (primary) hypertension, N18.32 - Chronic kidney disease, stage 3b, N27.0 - Small kidney, unilateral Vitamin D 25-OH Total 6 Months I10 - Essential (primary) hypertension, N18.32 - Chronic kidney disease, stage 3b, N27.0 - Small kidney, unilateral Parathyroid Hormone Intact 6 Months I10 - Essential (primary) hypertension, N18.32 - Chronic kidney disease, stage 3b, N27.0 - Small kidney, unilateral Coding Level of Care Code Est Pt Level 4 (92130) Diagnoses Chronic kidney disease, stage 3b N18.32 Essential (primary) hypertension I10 Small right kidney N27.0
[2025-04-04 09:29] VITALS: BP 122/60; PULSE 68; O2SAT 98; BMI 25.5
--- OUTSIDE RECORDS SUMMARY | 2025-04-04 09:55 | XMS_ITS | Clinical Summary ---
Author Organization [facility] Address [address] [place] [address] Care Team Providers Care Service Worker Helper Name Role Phone Fito Rush PA-C Primary [...] times a day. 0 02/26/2023 Active Biotin 03336 MCG TABS Take by mouth. 0 Active [...] age to complete this topic Care Teams Service Worker Helper Relationship Specialty Start Date End Date Fito Rush PA-C [address] [place] [address] PCP - General Physician Store Team Member 07/17/23
--- OUTSIDE RECORDS SUMMARY | 2025-04-04 09:55 | XMS_ITS | Patient Health Record ---
Author Organization [facility] Address [address] [place] [address] Care Team Providers Care Felt Hanger Name Role Phone Deuce Murillo, Arash Unavailable Lester BANKS, Elvis Unavailable Unavailable Reason For Referral No Information Problems Problem Type SNOMED Code ICD Code Onset Dates Problem Status W/U Status Risk Notes Problem Thoracic and lumbosacral neuritis (376925366) Thoracic or lumbosacral neuritis or radiculitis, unspecified (724.4) Active confirmed Problem Lumbosacral spondylosis without myelopathy (46872077) Lumbosacral spondylosis without myelopathy (721.3) Active confirmed Plan Of Treatment No Information Insurance Providers Payer Name Payer Address Payer Phone Subscriber Number Group Number Insured Name Patient Relationship to Insured Coverage Start Date Coverage End Date [facility] [address] [address] [place], [place] [id number] [place]ona Self - patient is the insured
--- OUTSIDE RECORDS SUMMARY | 2025-04-04 09:55 | XMS_ITS ---
Author Organization [facility] Address [address] [place] [address] Care Team Providers Care Patient Relations Liaison Name Role Phone Fito Rush PA-C Primary Care Provider Active Problems Problem Noted Date Diagnosed Date [...] serum protein level 09/15/2022 Current Oncology Plans [facility] BCN OP BORTEZOMIB SC OR IVP, DAYS [...] Treatment Medications Discontinue Reason Plan Provider Cycles [facility] BCN OP RITUXIMAB (IV/SC) WEEKLY X4 07/22/2010/06/2023 acetaminophen (TYLENOL)albuter ol (PROVENTIL)dexam ethasone sod phosphate PF (DECADRON)diphen hydrAMINE (BENADRYL)EPINEP Hrinefamotidine (PF) (PEPCID)hydrocor tisone (SOLU-CORTEF) IVmeperidine (DEMEROL) 25 MG/MLriTUXimab-h yaluronidase (RITUXAN HYCELA) 1400-78015 MG -UT/11.7MLriTUXi mab-pvvr (RUXIENCE) infusion (Outpatient record)Saline Flush 0.9 %sodium chloride (NS) 0.9 %sodium chloride 0.9% bolus (NS) Therapy Complete Subramonia Clarisa Palomo MD 2 of 2 cycles started Radiation Treatments * No radiation treatments are documented for this patient in [facility]. Treatments may have been administered in another system.
--- OUTSIDE RECORDS SUMMARY | 2025-04-04 09:56 | XMS_ITS | Clinical Summary ---
Author Organization [facility] Address [address] [place] [address] Care Team Providers Care Conference Planner Name Role Phone Ever Matt JORI Primary Care Provider [phone] Source Comments PLEASE NOTE, if this patient [...] (FLONASE) 50 mcg/actuation nasal spray Place 1 [place] in both nostrils once daily 48 g [...] 3 SENSOR) deviIndications :Inadequately controlled diabetes mellitus ([facility]) Apply to back of upper arm every 14 days. Use to test blood glucose continuously (Freestyle Jose 3 sensor) 2 Each 025 Active blood sugar diagnostic stripsIndicatio ns:Inadequately controlled diabetes mellitus ([facility]) Use to test blood glucose up to 3 times daily (Freestyle Precision Shine) 100 Each 025 Active lancets (FREESTYLE LANCETS) 28 gaugeIndication s:Inadequately controlled diabetes mellitus ([facility]) Use to test blood glucose up to 3 times daily (Freestyle Lancets) 100 Each 025 Active alcohol swabsIndication s:Inadequately controlled diabetes mellitus ([facility]) Use to test blood glucose up to [...] 10 mg tabIndications: Inadequately controlled diabetes mellitus ([facility]) TAKE ONE TABLET BY MOUTH EVERY DAY 30 Tablet 1 025 Active hydrocortisone (CORTEF) 5 mg tablet TAKE TWO TABLETS BY MOUTH EVERY MORNING AND ONE TABLET EVERY EVENING.. 290 Tablet 025 Active RYBELSUS 7 mg tabIndications: Inadequately controlled diabetes mellitus ([facility]) TAKE ONE TABLET BY MOUTH EVERY MORNING BEFORE BREAKFAST 30 Tablet 5 025 Active semaglutide (RYBELSUS) 7 mg tabIndications: Inadequately controlled diabetes mellitus ([facility]) Take 1 Tablet by mouth every morning before breakfast 30 Tablet 5 024 2024 Discontinued Active Problems Problem Noted Date Diagnosed Date Depression 11/10/2024 Needle phobia 10/10/2024 Inadequately controlled diabetes mellitus ([facility]) 07/22/2024 Brain aneurysm ([facility]) 05/09/2024 Overview (05/09/2024): Apr 2024 [facility]: Incidental intracranial aneurysm: Ms. 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[facility]) Prediabetes 04/27/2023 Sickle cell trait ([facility]) 01/13/2023 Overactive bladder 01/13/2023 Iron deficiency anemia 09/15/2022 Alpha thalassemia trait 09/15/2022 12/25/19 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) 09/15/2022 0 12/24/2022 Stage 3b chronic kidney disease ([facility]) 05/02/2022 Adrenal insufficiency (Thee's disease) ([facility]) 05/02/2022 History of stroke 05/02/2022 Overview (05/02/2022): Thalamic infarct [facility] 2019 Essential hypertension 04/23/2022 Other hyperlipidemia 04/23/2022 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[facility]) 0 04/23/2022 Overview (04/23/2022): On group home use of prednisone due to this Encounters Date Type Department Care Team Description 03/21/2025 9:00 AM EDT BH/MH Visits [address] [address] Pedro Cordero LCSW 03/01/2025 9:15 AM EDT BH/MH Visits [address] [address] Pedro Cordero LCSW 02/15/2025 9:15 AM EDT BH/MH Visits [address] [address] Pedro Cordero LCSW 02/15/2025 Erroneous Telephone Encounter [address] [address] Rafaela Gilmore RN 02/07/2025 4:20 PM EDT Office Visit [address] [address] Delphine Mendez FNP 02/01/2025 9:15 AM EDT BH/MH Visits [address] [address] Pedro Cordero LCSW 01/18/2025 9:15 AM EDT BH/MH Visits [address] [address] Pedro Cordero LCSW 01/03/2025 2:45 PM EDT / Visits [facility] [address] [place] [address] Pedro Cordero LCSW from Last 3 Months Social History Tobacco [...] Description 04/05/2025 9:15 AM EDT / Visits [facility] [address] [place] [address] Pedro Cordero, WEB OPERATIONS SPECIALIST [address] [place] [address] Health Maintenance Due Date Last Done Comments Diabetes Foot Exam 1965 HPV Screening 1965 Urine Drug Screen 1965 [id number]-[id number] (#1) 1970 Retinopathy Screening 1978 Imm-DTaP/Tdap/Td (1 [...] Imm-Influenza (#1) 2025 Hemoglobin A1c 05/31/2025 11/29/2024, 110 01/2024, 03/12/2023, Additional history exists Lipid Screening 06/15/2025 06/15/2024, 0909/2021, 04/11/2022 Dental Perio Charting 08/24/2025 08/22/2024 Annual [...] 10:38 AM EDT Inadequately controlled diabetes mellitus ([facility]) Stage 3b chronic kidney disease ([facility]) MICROALBUMIN/CREATINI NE RATIO, URINE, RANDOM Routine 11/29/2024 10:38 AM EDT Inadequately controlled diabetes mellitus ([facility]) HEMOGLOBIN GLYCOSYLATED A1C Routine 11/29/2024 10:38 AM EDT Inadequately controlled diabetes mellitus ([facility]) Stage 3b chronic kidney disease ([facility]) Full PROPHYLAXIS - ADULT Routine 08/22/2024 9:00 [...] 3:00 AM EDT) 01/18/2025 3:00 AM EDT [employer] LEARNING ENGINEER SCAN MEDS OTHER ORDERS Fi nal Result * OTHER ORDERS SCANNED DOCUMENT (01/10/2025 3:00 AM EDT) 01/10/2025 3:00 AM EDT [employer] LEARNING ENGINEER SCAN OTHER ORDERS Final R esult * (ABNORMAL) MICROALBUMIN/CREATININE RATIO, URINE, RANDOM (11/29/2024 10:38 AM EDT) CREATININE, RANDOM URINE 419(H) 20 - 275 mg/dL [facility] Comment: Verified by repeat analysis. MICROALBUMIN 3.3 mg/dL [facility] Comment: Reference Range Not established MICROALBUMIN/CREA TININE RATIO, RANDOM URINE 8 <30 mg/g creat [facility] Comment: The ADA defines abnormalities in albumin [...] AM EDT 11/29/2024 10:39 AM EDT Narrative [employer] - 11/30/2024 9:55 PM EDT FASTING:NO [employer] Ever LEARNING ENGINEER LAB URINE AMBULATORY Mai l Result Performing Organization Address [facility] de Phone Number [employer] [address] [place] [address], [facility] [address] [place] [phone] * (ABNORMAL) HEMOGLOBIN GLYCOSYLATED A1C (11/29/2024 10:38 AM EDT) HEMOGLOBIN A1C 6.7(H) <5.7 % [facility] Comment: For someone without known diabetes, a [...] 0:38 AM EDT 11/29/2024 10:39 AM EDT [employer] - 11/30/2024 9:55 PM EDT FASTING:NO [employer] Ever LEARNING ENGINEER LAB - BLOOD DRAW Edited R esult - Final Performing Organization Address City/[facility]/ZIP Co de Phone Number [facility] [address] [address], [facility] [address] [address] * (ABNORMAL) COMPREHENSIVE METABOLIC PANEL (11/29/2024 10:38 AM EDT) GLUCOSE 103 65 - 139 mg/dL [facility] Comment: Non-fasting reference interval UREA NITROGEN (BUN) 19 7 - 25 mg/dL [facility] CREATININE (blood) 1.30(H) 0.50 - 1.03 mg/dL [facility] EGFR 47(L) > OR = 60 mL/min/1. 73m2 [facility] BUN/CREATININE RATIO 15 6 - 22 (calc) [facility] SODIUM 146 135 - 146 mmol/L [facility] POTASSIUM 3.5 3.5 - 5.3 mmol/L [facility] CHLORIDE 106 98 - 110 mmol/L [facility] CARBON DIOXIDE 31 20 - 32 mmol/L [facility] CALCIUM 9.9 8.6 - 10.4 mg/dL [facility] PROTEIN, TOTAL 6.2 6.1 - 8.1 g/dL [facility] ALBUMIN 4.4 3.6 - 5.1 g/dL [facility] GLOBULIN 1.8(L) 1.9 - 3.7 g/dL (calc) [facility] ALBUMIN/GLOBULI N RATIO 2.4 1.0 - 2.5 (calc) [facility] BILIRUBIN, TOTAL 0.5 0.2 - 1.2 mg/dL [facility] ALKALINE PHOSPHATASE 81 37 - 153 U/L [facility] AST 19 10 - 35 U/L [facility] ALT 31(H) 6 - 29 U/L [facility] Blood Blood / Unknown 11/29/2024 1 0:38 AM EDT 11/29/2024 10:39 AM EDT Narrative [facility] - 11/30/2024 9:55 PM EDT FASTING:NO Matt Curtis LEARNING ENGINEER LAB - BLOOD DRAW Edited R esult - Final [facility] [address] [address], [facility] [address] [address] * (ABNORMAL) LIPID PANEL (06/15/2024 9:39 AM EST) CHOLESTEROL, TOTAL 154 <200 mg/dL [employer] [facility] HDL CHOLESTEROL 69 > OR = 50 mg/dL [facility] TRIGLYCERIDES 199(H) <150 mg/dL [facility] LDL-CHOLESTEROL 58 99 mg/dL (calc) [facility] Comment: Reference range: <100 Desirable range <100 mg/dL for primary prevention; <70 mg/dL for patients with CHD or diabetic patients with > or = 2 CHD risk factors. LDL-C is now calculated using the Peggy calculation, which is a validated novel method providing better accuracy than the Friedewald equation in the estimation of LDL-C. Tanmay ANDRES et al. RAMONA. 2013;310(19): 7376-9227 (http://education.M86 Security/faq/AEW210) CHOL/HDLC RATIO 2.2 <5.0 (calc) [employer] [facility] NON-HDL CHOLESTEROL 85 <130 mg/dL (calc) [employer] [facility] Comment: For patients with diabetes plus 1 major ASCVD risk factor, treating to a non-HDL-C goal of <100 mg/dL (LDL-C of <70 mg/dL) is considered a therapeutic option. Blood Blood / Unknown 06/15/2024 9 :39 AM EST 06/15/2024 9:41 AM EST us Matt LINDOP LAB - BLOOD DRAW Final Re sult [employer] [facility] [address] [address], [facility] [address] [address] * HISTORIC MAMMOGRAM (08/14/2023 3:00 AM EST) 08/14/2023 3:00 AM EST us Matt Ever LEARNING ENGINEER IMG MAMMO Final Res ult * THIN PREP PAP + HPV RNA E6/E7 (Q) (05/15/2023 9:11 AM EDT) CLINICAL INFORMATION See Note [facility] Comment:Normal exam LMP See Note [facility] Comment:NONE GIVEN PREV. PAP See Note [facility] Comment:NONE GIVEN PREV. BX See Note [facility] Comment:NONE GIVEN SOURCE See Note [facility] Comment:Cervix STATEMENT OF ADEQUACY See Note [facility] Comment:SATISFACTORY FOR BORIS LUATION INTERPRETATION/RESU LT See Note [facility] Comment: Cytology Results: Negative for intraepithelial lesion or malignancy. Atrophic pattern; predominantly parabasal cells SHEET ROCK SANDER See Note [facility] Station X Comment: KN, CT(ASCP) CT screening location: [place] [address] COMMENT [employer] [facility] HPV MRNA E6/E7 Not Detected Not Detected [facility] Comment: Methodology: Statistics Intern-Mediated Amplification This assay detects E6/E7 viral messenger RNA (mRNA) from 14 high-risk HPV types (16,18,31,33,35,39,45,51,52,56,58,59,66,68). Cervical sources are required for HPV testing. If a vaginal source from a patient who has had a total hysterectomy with removal of cervix was submitted, please contact the testing laboratory for alternative testing options. For additional information, please refer to http://education.ExecOnline/faq/NTC588b6 (This link if provided for information/ educational purposes only.) CYTOLOGY Cervix uteri structure / Unknown 05/15/2023 9:11 AM EDT 05/18/2023 5:02 AM EDT Narrative [employer] [facility] - 05/18/2023 10:19 PM EDT EXPLANATORY NOTE: [...] AM BULATORY Final Result Performing Organization Address [facility]/ZIP Co de Phone Number [email or web address] [address] [address], [facility] [address] [address] * Hep C Antibody with Reflex HCV RNA (09/02/2022 9:12 AM EST) HEPATITIS C ANTIBODY NON-REACT HAYDEN NON-REACT HAYDEN [facility] SIGNAL TO CUT-OFF 0.06 <1.00 [facility] Comment: HCV antibody was non-reactive. There is no laboratory evidence of HCV infection. In most cases, no further action is required. However, if recent HCV exposure is suspected, a test for HCV RNA (test code 52510) is suggested. For additional information please refer to http://education.ExecOnline/faq/XXX37b1 (This link is being provided for informational/ educational purposes only.) Blood Blood / Unknown 09/02/2022 9 :12 AM EST 09/02/2022 9:12 AM EST Rubin Delacruz LEARNING ENGINEER-C LAB - BLOOD DRAW Edited R esult - Final Performing Organization Address City/[facility]/ZIP Co de Phone Number [email or web address] [address] [place] [address], [facility] [address] [facility] [place] [address] * HIV 1/2 AG & AB W/RFLX (4TH GEN) (09/02/2022 9:12 AM EST) HIV AG/AB, 4TH GEN NON-REAC TIVE NON-REAC TIVE [facility] Comment: HIV-1 antigen and HIV-1/HIV-2 antibodies [...] purpose. For additional information please refer to http://education.Angie's List.Stylewhile/faq/JZZ610 (This link is being provided for informational/ educational purposes only.) The performance of this assay has not been clinically validated in patients less than 2 years old. Blood Blood / Unknown 09/02/2022 9 :12 AM EST 09/02/2022 9:12 AM EST Rubin Delacruz LEARNING ENGINEER-C LAB - BLOOD DRAW Final Re sult [email or web address] [address] [facility] [address] [place] [address], [email or web address] [address] [place] [address] (NL2) [place] [address] from Last 3 Months or Most Recently Relevant to Health Maintenance [place] [address] [facility] [facility] Care Teams Conference Planner Relationship Specialty Start Date End Date Matt Curtis FNP [address] [place] [address] PCP - General Family Medicine, VISUAL EFFECTS ARTIST 02/24/23
--- OUTSIDE RECORDS SUMMARY | 2025-04-04 09:56 | XMS_ITS | Clinical Summary ---
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/2023 Chronic kidney disease stage 3A 05/02/2022 03/25/2023 Essential hypertension 04/23/2022 Resolved Problems Problem Noted Date Diagnosed Date Resolved Date Cardiac murmur 03/25/2023 03/25/2023 03/25/2023 Gastroesophageal reflux disease 03/25/2023 3 03/25/2023 Pituitary-dependent Luck's disease 03/25/202303/25/2023 Overactive bladder 01/13/2023 03/25/2023 Alpha thalassemia trait 09/15/2022 03/25/202303/10 Hemoglobinopathy 09/15/2022 03/25/2023 03/25/2023 Serum protein above reference range 09/15/2022 03/25/2023 Other fatigue 09/15/2022 03/25/2023 03/25/2023 Sickle cell trait 09/15/2022 03/25/2023 03/25/2023 History of cerebrovascular accident 05/02/202203/2503/25/2023 Overview (03/25/2023): Thalamic infarct [facility] 2020 Disorder of pituitary gland 04/23/2022 03/25/2023 03/25/2023 Overview (03/25/2023): On jail use of prednisone due to this Other [...] (#1) 2025 Insurance [place] Care Teams Assistant Professor Of Physics Relationship Specialty Start Date End Date Abelardo Morgan MD [address] [place] [address] PCP - General Endocrinology 10/02/23
--- OUTSIDE RECORDS SUMMARY | 2025-04-04 09:56 | XMS_ITS | Clinical Summary ---
Author Organization [facility] Address [address] [place] [address] Phone Care Team Providers Care Horticultural Specialty Grower Name Role Phone Fito Rush Primary Care Provider [phone] Allergies Active Allergy Reactions Criticality Noted Date Comments Levonorgestrel-Ethinyl Estrad Other Low 12/11/2023 Runny eyes , runny nose Penicillins Hives,Other,Shortnes s of breath,Unknown,Wheez ing High 04/11/2022 Medications atorvastatin (LIPITOR) 40 mg tablet Take 1 tablet (40 mg total) by mouth daily. 08/08/2022 Active biotin 10 mg tablet Take by mouth. Active carvediloL (COREG) 6.25 mg tablet Take 1 tablet (6.25 mg total) by mouth. 02/26/2023 Active cholecalciferol (VITAMIN D-3) 50 mcg (2,000 unit) capsule 01/21/2023 Activ e ferrous sulfate 325 mg (65 mg elemental iron) tablet Take 1 tablet (325 mg total) by mouth. 07/28/2022 Active folic acid (FOLVITE) 1 mg tablet 01/21/2023 Active hydrocortisone (CORTEF) 5 mg tablet 2 tabs in the morning and 1 in the pm. Dispense 20 extra tablets. 05/13/2020 Active amLODIPine (NORVASC) 10 mg tablet Take 1 tablet (10 mg total) by mouth. 09/03/2023 Active Trulicity 1.5 mg/0.5 mL pen injector injection INJECT 1.5 MG into THE SKIN ONCE a WEEK 07/22/2024 Active empagliflozin (JARDIANCE) 10 mg tablet Take 1 tablet (10 mg total) by mouth daily. 07/27/2024 Active potassium chloride (KLOR-CON) 10 mEq CR tablet Take 1 tablet (10 mEq total) by mouth 2 (two) times a day. 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 ([facility] V24, [facility] V28) 10/06/2023 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[facility] V24, [facility] V28) 07/17/2023 Benign hypertensive renal disease 03/25/2023 Alpha thalassemia trait 09/15/2022 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[facility] V24) 09/15/2022 Adrenal insufficiency (Siri on's disease) ([facility] V24, [facility] V28) 05/02/2022 Stage 3b chronic kidney disease ([facility] V24, [facility] V28) 05/02/2022 Encounters Date Type Department Care Team Description 03/07/2025 10:15 AM EDT Office Visit Orthopedic Surgery [address] [phone] Goyo Noriega DPM Controlled type 2 diabetes with neuropathy ([facility] V24, [facility] V28) (Primary Dx); Metatarsalgia of right foot; Arthritis of both feet; Hammertoes of both feet; Dermatophytosis, nail 03/03/2025 10:30 AM EDT Consult Endocrinology - [address] [phone] Deyanira Escalante MD Adrenal insufficiency (Cimarron's disease) ([facility] V24, [facility] V28) (Primary Dx) 02/02/2025 Telephone Endocrinology - [address] [phone] Deyanira Escalante MD 01/03/2025 9:15 AM EDT Office Visit Orthopedic [place] [id number] [phone] Goyo Noriega DPM Controlled type 2 diabetes with neuropathy ([facility] V24, [facility] V28) (Primary Dx); Metatarsalgia of right foot; Arthritis of both feet; Hammertoes of both feet; Dermatophytosis, nail from Last 3 Months Medical History Medical History Date Comments Essential hypertension DX:Essent ial hypertension Hyperlipidemia DX:Hyperlipidemi a Hypertension DX:Hypertension Abnormality of pituitary gla nd ([facility] V24) DX: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HCC) Chronic kidney disease DX:Chroni c kidney disease Cimarron's disease ([facility] V 24, [facility] V28) DX:Cimarron's disease (HCC) Stroke ([facility] V24, [facility] V28) DX:Stroke ([facility]) Anemia DX:Anemia Iron deficiency anemia 01/27/2023 DX:Iron [...] AM EDT Sexual Orientation Not on file Obstetrics History Last Filed Vital Signs Vital Sign Reading Time Taken Comments Blood Pressure 101/61 03/03/2025 10:20 AM EDT Pulse 78 03/03/2025 10:20 AM EDT Temperature 36.3 C (97.3 F) 12/16/2024 9:20 AM EDT Respiratory Rate 15 03/03/2025 10:20 AM EDT Oxygen Saturation 100% 12/16/2024 9:20 AM EDT Inhaled Oxygen Concentration - - Weight 79.4 kg (175 lb) 03/03/2025 10:20 AM EDT Height 175.3 cm (5' 9.02 ) 03/03/2025 10:20 AM E DT Body Mass Index 25.83 03/03/2025 10:20 AM EDT Plan of Treatment Upcoming Encounters Date Type Department Care Team (Late st Contact Info) Description 04/25/2025 9:30 AM EDT Office Visit Endocrinology [address] [place] [phone] Deyanira Escalante MD [address] [place] [address] 05/10/2025 10:45 AM EDT Office Visit Orthopedic Surgery - [place] [address] [facility] [address] [place] [phone] Goyo Noriega, RICKY [address] [place] [address] 06/05/2025 9:15 AM EDT Office Visit [facility] Hematology Oncology [address] [place] [phone] Clarisa Vazquez MD [address] [place] [phone] Health Maintenance Due Date Last Done Comments COVID-19 Vaccine (#1) 1970 Diabetes: Annual Foot Exam 1975 Diabetes: Annual Retina Eye Exam 1975 DTaP,Tdap,and Td Vaccines (1 - Tdap) 1984 Hepatitis B Vaccines (1 of 3 - 19+ 3-dose series) 1984 Pneumococcal Vaccine: 50+ Years (1 of 2 - PCV) 1984 Zoster Vaccines (1 of 2) 1984 Colorectal Cancer Screening: Colonoscopy 07/13/2022 Social Influencers of Health Screening 07/13/2022 Breast Cancer Screening 07/24/2024 07/24/2022 Depression Screening 08/10/2024 Influenza Vaccine (#1) 2025 Diabetes: Blood Sugar Control Test (HGBA1C) 05/31/2025 11/29/2024, 06/15/2024, 03/12/2023, Additional history exists Diabetes: Annual Urine Albumin-Creatinine Ratio (uACR) 11/29/2025 11/29/2024, 09/18/2022 Diabetes: Annual GFR (Glomerular Filtration Rate) 12/16/2025 12/16/2024, 11/29/2024, 08/05/2024, Additional history exists Hypertension/CHF/CAD Annual BMP Blood Test 12/16/2025 12/16/2024, 11/29/2024, 08/05/2024, Additional history exists Cervical Cancer Screening: HPV 05/15/2028 05/15/2023 Cholesterol Screening (Lipid Panel) 06/15/2029 06/15/2024, 06/15/2024, 04/11/2022, Additional history exists RSV Immunization Adult Patients (1 - 1-dose 75+ series) 2040 HIV [...] age to complete this topic Meningococcal B Vaccine Aged Out No l onger eligible based on patient's age to complete this topic RSV Immunization Patients Under 20 months Aged Out No longer eligible based on patient's age to complete this topic Varicella Vaccines Aged Out No longer eligible based on patient's age to complete this topic Procedures Procedure Name Priority Date/Time Associated Diagnosis Comments DEHYDROEPIANDROSTERONE SULFATE Routine 03/08/2025 8:09 AM EDT Adrenal insufficiency (Thee's disease) ([facility] V24, [facility] V28) THYROXINE FREE Routine 03/08/2025 8:09 AM EDT Adrenal insufficiency (Cimarron's disease) ([facility] V24, [facility] V28) THYROID STIMULATING HORMONE Routine 02/09 8:09 AM EDT Adrenal insufficiency (Cimarron's disease) ([facility] V24, [facility] V28) ACTH Routine 03/08/2025 8:09 AM EDT Adrenal insufficiency (Thee's disease) ([facility] V24, [facility] V28) CORTISOL Routine 03/08/2025 8:09 AM EDT Adrenal insufficiency (Cimarron's disease) ([facility] V24, [facility] V28) INSULIN-LIKE GROWTH FACTOR Routine 03/08 8:09 AM EDT Adrenal insufficiency (Thee's disease) ([facility] V24, [facility] V28) PROLACTIN Routine 03/08/2025 8:09 AM EDT Adrenal insufficiency (Cimarron's disease) ([facility] V24, [facility] V28) LUTEINIZING HORMONE Routine 03/08/2025 8 :09 AM EDT Adrenal insufficiency (Thee's disease) ([facility] V24, [facility] V28) FOLLICLE STIMULATING HORMONE Routine 8:09 AM EDT Adrenal insufficiency (Cimarron's disease) ([facility] V24, [facility] V28) COMPREHENSIVE METABOLIC PANEL Routine 12/16/2024 9:42 AM EDT 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[facility] V24, [facility] V28) HM HPV Routine 05/15/2023 HEMOGLOBIN A1C Routine 03/12/2023 URINE ALBUMIN CREATININE RATIO Routine 09/18/2022 HEPATITIS C SCREENING Routine 09/02/2022 HIV SCREENING Routine 09/02/2022 ANITA SCREENING DIGITAL Routine 07/24/2022 8:32 AM EST Encounter for screening mammogram for malignant neoplasm of breast LIPID PANEL Routine 04/11/2022 from Last 3 Months or Most Recently Relevant to Health Maintenance Results * Prolactin (03/08/2025 8:09 AM EDT) Pathologist [facility] Prolactin 7.50 See Comment ng/mL LAB CHEMISTRY METHOD 03/08/2025 8:46 AM EDT [facility] Comment: Prolactin Reference Ranges (ng/mL) Non 2.2 - 30.3 8.1 - 347.6 Postmenopausal 0.7 - 31.5 Blood Venous blood specimen / Unknown Venipuncture / Unknown 03/08/2025 8:09 AM EDT 03/08/2025 8:21 AM EDT Deyanira Escalante MD LAB BLOOD ORDERABLES Final Resul t [facility] [address] [place] [address], [place] [phone] * Insulin-like growth factor (03/08/2025 8:09 AM EDT) [facility] Insulin-like Growth Factor 1 65 60 - 207 ng/mL 03/10/2025 1:19 PM EDT [facility] Comment: Test performed at [facility], [address], [place] [address] Gabriella Randall MD, PhD - Strategy Consultant Blood Venous blood specimen / Unknown Venipuncture / Unknown 03/08/2025 8:09 AM EDT 03/08/2025 8:21 AM EDT Deyanira Escalante MD LAB BLOOD ORDERABLES Final Resul t [facility] [address] [place] [address] * (ABNORMAL) Dehydroepiandrosterone Sulfate (03/08/2025 8:09 AM EDT) Pathologist [facility] DHEA Sulfate 5.5(L) 30.5 - 122.8 mcg/dL LAB CHEMISTRY METHOD 03/08/2025 10:37 AM EDT [facility] Blood Venous blood specimen / Unknown Venipuncture / Unknown 03/08/2025 8:09 AM EDT 03/08/2025 8:21 AM EDT Narrative [facility] - 03/08/2025 10:37 AM EDT Over the counter supplements containing high doses of biotin may interfere with this assay. If interference is suspected, patients shoud be retested after refraining from biotin supplements for 72 hours. us Deyanira Escalante MD LAB BLOOD ORDERABLES Final Resul t [facility]) [facility] [address] [place] [address], * ACTH (03/08/2025 8:09 AM EDT) Adrenocorticotropic Hormone (ACTH) <5 <=46 pg/mL 03/10/2025 1:[address] [facility] Comment: Test performed at [facility], [address] , [place] [address] Gabriella Randall MD, PhD - Strategy Consultant Blood Venous blood specimen / Unknown Venipuncture / Unknown 03/08/2025 8:09 AM EDT 03/08/2025 8:21 AM EDT Deyanira Escalante MD LAB BLOOD ORDERABLES Final Resul t [facility] [address] [place] [address] * Thyroid stimulating hormone (03/08/2025 8:09 AM EDT) TSH 1.28 0.40 - 4.00 mcIU/mL LAB CHEMISTRY METHOD 03/08/2025 10:16 AM EDT [facility] Blood Venous blood specimen / Unknown Venipuncture / Unknown 03/08/2025 8:09 AM EDT 03/08/2025 8:21 AM EDT us Deyanira Escalante MD LAB BLOOD ORDERABLES Final Resul t Performing Organization Address City/[facility]/ZIP Co de Phone Number [facility] [address] [place] [address], [place] [phone] * Thyroxine free (03/08/2025 8:09 AM EDT) Free T4 0.87 0.70 - 1.80 ng/dL LAB CHEMISTRY METHOD 03/08/2025 10:16 AM EDT [facility] Blood Venous blood specimen / Unknown Venipuncture / Unknown 03/08/2025 8:09 AM EDT 03/08/2025 8:21 AM EDT us Deyanira Escalante MD LAB BLOOD ORDERABLES Final Resul t Performing Organization Address [facility] Co de Phone Number [facility] [address] [place] [address], [place] [phone] * Luteinizing hormone (03/08/2025 8:09 AM EDT) [facility] Luteinizing Hormone 2.8 See Comment mIU/mL LAB CHEMISTRY METHOD 03/08/2025 8:46 AM EDT [facility] Blood Venous blood specimen / Unknown Venipuncture / Unknown 03/08/2025 8:09 AM EDT 03/08/2025 8:21 AM EDT Narrative [facility] - 03/08/2025 8:46 AM EDT LH REFERENCE RANGES (MIU/ML) FEMALES NORMALLY MENSTRUATING: FOLLICULAR PHASE 1.9 - 12.8 MIDCYCLE PEAK 22.8 - 76.1 LUTEAL PHASE 0.6 - 13.5 POSTMENOPAUSAL: ON HRT 1.1 - 52.4 UNTREATED 8.6 - 61.8 us Deyanira Escalante MD LAB BLOOD ORDERABLES Final Resul t Performing Organization Address City/[facility]/ZIP Co de Phone Number [facility] [address] [place] [address], [place] [phone] * Follicle stimulating hormone (03/08/2025 8:09 AM EDT) Pathologist [facility] Follicle Stimulating Hormone 8.3 See Comment mIU/mL LAB CHEMISTRY METHOD 03/08/2025 8:48 AM EDT [facility] Comment: FSH REFERENCE RANGES (MIU/ML) FEMALES NORMALLY MENSTRUATING: FOLLICULAR PHASE 2.3 - 12.6 MIDCYCLE PEAK 5.2 - 17.5 LUTEAL PHASE 1.7 - 9.5 POSTMENOPAUSAL: ON HRT 5.9 - 72.8 UNTREATED 12.7 - 132.2 Blood Venous blood specimen / Unknown Venipuncture / Unknown 03/08/2025 8:09 AM EDT 03/08/2025 8:21 AM EDT Deyanira Escalante MD LAB BLOOD ORDERABLES Final Resul t Performing Organization Address City/[facility]/ZIP Co de Phone Number [facility] [address] [place] [address], [place] [phone] * Cortisol (03/08/2025 8:09 AM EDT) [facility] Cortisol 3.0 mcg/dL LAB CHEMISTRY METHOD 03/08/2025 10:16 AM EDT [facility] Blood Venous blood specimen / Unknown Venipuncture / Unknown 03/08/2025 8:09 AM EDT 03/08/2025 8:21 AM EDT Narrative [facility] - 03/08/2025 10:16 AM EDT CORTISOL REFERENCE RANGE 8 AM SPEC: 5.0-23.0 mcg/dL 4 PM SPEC: 3.0-16.0 mcg/dL 8 PM SPEC: <5.0 mcg/dL us Deyanira Escalante MD LAB BLOOD ORDERABLES Final Resul t [facility] [address] [place] [address], [place] [phone] * (ABNORMAL) Comprehensive metabolic panel (12/16/2024 9:42 AM EDT) Sodium 140 133 - 145 mmol/L LAB CHEMISTRY METHOD 12/16/2024 12:07 PM [facility] Potassium 3.2(L) 3.5 - 5.5 mmol/L LAB CHEMISTRY METHOD 12/16/2024 12:07 PM [facility] Chloride 109 96 - 110 mmol/L LAB CHEMISTRY METHOD 12/16/2024 12:07 PM [facility] CO2 27 21 - 32 mmol/L LAB CHEMISTRY METHOD 12/16/2024 12:07 PM [facility] Anion Gap 4 3 - 11 LAB CHEMISTRY METHOD 12/16/2024 12:07 PM [facility] Glucose 95 70 - 100 mg/dL LAB CHEMISTRY METHOD 12/16/2024 12:07 PM [facility] BUN 15 5 - 25 mg/dL LAB CHEMISTRY METHOD 12/16/2024 12:07 PM [facility] Creatinine 1.48(H) 0.50 - 1.10 mg/dL LAB CHEMISTRY METHOD 12/16/2024 12:07 PM [facility] eGFR 41(L) >=60 mL/min/1. 73m2 LAB CHEMISTRY METHOD 12/16/2024 12:07 PM [facility] Comment:Calculation based on the Chronic Kidney Disease Epidemiology Collaboration (CKD-EPI) equation refit without adjustment for race. BUN/Creatinine Ratio 10.1 LAB CHEMISTRY METHOD 12/16/2024 12:07 PM [facility] Calcium 9.3 8.5 - 10.5 mg/dL LAB CHEMISTRY METHOD 12/16/2024 12:07 PM [facility] AST (SGOT) 17 10 - 42 unit/L LAB CHEMISTRY METHOD 12/16/2024 12:07 PM EDT [facility] ALT (SGPT) 31 10 - 60 unit/L LAB CHEMISTRY METHOD 12/16/2024 12:07 PM EDT [facility] Alkaline Phosphatase 93 42 - 121 unit/L LAB CHEMISTRY METHOD 12/16/2024 12:07 PM EDT [facility] Total Protein 6.1 6.0 - 8.0 g/dL LAB CHEMISTRY METHOD 12/16/2024 12:07 PM EDT [facility] Albumin 3.8 3.2 - 5.0 g/dL LAB CHEMISTRY METHOD 12/16/2024 12:07 PM EDT [facility] Total Bilirubin 0.3 0.0 - 1.4 mg/dL LAB CHEMISTRY METHOD 12/16/2024 12:07 PM EDT [facility] Blood Venous blood specimen / Unknown Venipuncture / Unknown 12/16/2024 9:42 AM EDT 12/16/2024 11:36 AM EDT Clarisa Vazquez MD LAB BLOOD ORDERABLE S Final Result [facility] [address] [place] [address], * Cervical Cancer Screening: HPV (05/15/2023) Pathologist [facility] Cervical Cancer Screening: HPV Abstracted, No interpretation Historical Provider HEALTH MAINTENANCE Final Result * Hemoglobin A1c (03/12/2023) [facility] Hemoglobin A1C 0.0 % Comment:No interpretation Blood Venous blood specimen / Unknown Historical Provider LAB BLOOD ORDERABLES Mai l Result * Urine Albumin Creatinine Ratio (09/18/2022) Pathologist [facility] Urine Albumin Creatinine Ratio Abstracted Historical Provider HEALTH MAINTENANCE Final Result * HIV Screening (09/02/2022) HIV Screening Abstracted Historical Provider HEALTH MAINTENANCE Final Result * Hepatitis C Screening (09/02/2022) HM Hepatitis C Screening Abstracted Historical Provider HEALTH MAINTENANCE Final Result * ANITA SCREENING DIGITAL (07/24/2022 8:32 AM EST) Anatomical Region Laterality Modality Mammography 07/02/2022 3:14 PM EST Narrative 07/24/2022 8:32 AM EST [facility] Diagnostic Imaging Department [address] [place] [address] Patient: SHONA RODRIGUEZ /Age/Sex: 1965 - 56 - F Unit#: [id number] Location/Status: [facility] Mnemonic/Ordering Site: [facility] Ordering Physician: WILLIAMS MOSS MD Anita Screening Digital - 07/02/22 - 1614 EXAM: Anita Screening Digital EXAM DATE AND TIME: 07/02/2022 4:14 PM HISTORY: Screening. Excisional biopsy of the right breast in 2013 and bilateral ultrasound-guided core biopsies in 2012, pathology benign. COMPARISON: Previous mammograms from [facility] have been requested but have not been received as of this date. When these arrive, an addendum to this report will be issued. TECHNIQUE: CC and MLO views of both breasts were obtained using full field digital mammography. Bilateral digital breast tomosynthesis was performed in the MLO projection. Computer aided detection with Cint 7.2-H and O2 [place] 3D 3.1 was employed. TISSUE DENSITY: b. [...] RECOMMENDATION(S): 1: Special mammographic view(s) needed RIGHT [id number], [id number] 3340F, [id number] Dictating Physician: ANA FARAH MD Electronically Signed by: ANA FARAH MD Dic Date/Time: 07/24/22 0756 Sign date/Time: 07/24/22 0832 Procedure Note Ana Farah MD - 09/11/2023 [facility] Diagnostic Imaging Department [address] [place] [id number] Patient: SHONA RODRIGUEZ /Age/Sex: 1965 - 56 - F Unit#: [id number] Location/Status: [facility] CLI Mnemonic/Ordering Site: [facility] Ordering Physician: WILLIAMS MOSS MD Anita Screening Digital - 07/02/22 - 161 EXAM: [facility] Screening Digital EXAM DATE AND TIME: 07/02/2022 4:14 PM HISTORY: Screening. Excisional biopsy of the right breast in 2013 and bilateral ultrasound-guided core biopsies in 2012, pathology benign. COMPARISON: Previous mammograms from [facility] have been requestedbut have not been received as of this date. When these arrive, an addendum tothis report will be issued. TECHNIQUE: CC and MLO views of both breasts were obtained using fullfield digital mammography. Bilateral digital breast tomosynthesis was performedin the MLO projection. Computer aided detection with Cint 7.2-H andO2 [place] 3D 3.1 was employed. TISSUE DENSITY: b. [...] RECOMMENDATION(S): 1: Special mammographic view(s) needed RIGHT [id number], [id number] 3340F, 7025F Dictating Physician: ANA FARAH MD [...] Maintenance Insurance MEDICAID - [place] Care Teams Horticultural Specialty Grower Relationship Specialty Start Date End Date Fito Rush PA [address] [place] [address] PCP - General 07/17/23
--- OUTSIDE RECORDS SUMMARY | 2025-04-04 09:56 | XMS_ITS ---
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 ([facility] [place] [place], [facility] V28) 10/06/2023 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[facility] [place] [place]24, [facility] [place] [place] V28) 07/17/2023 Benign hypertensive renal disease 03/25/2023 Alpha thalassemia trait 09/15/2022 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[facility] [place] [place] V24) 09/15/2022 Adrenal insufficiency (Fargo on's disease) ([facility] [place] [place] V24, [facility] [place] [place] V28) 05/02/2022 Stage 3b chronic kidney disease ([facility] [place] [place] V24, [facility] V28) 05/02/2022 Current Oncology Plans No current plan information found. Past Plans Oncology Treatment Plan Name Start Date Discontinue Date Treatment Medications Discontinue Reason Plan Provider Cycles RiTUXimab Weekly 06/20/20 24 08/05/2024 riTUXimab-pvvr (RUXIENCE) IVPB 250 mL - Therapy Complete Subramony Subramonia-I MD hi 1 of 1 cycle started Radiation Treatments * No radiation treatments are documented for this patient in [facility]. Treatments may have been administered in another system. Lifetime Dose Tracking * Chemical Lifetime Dose Automatic Entry Manual Entr y Fluoro Time 0.8 minutes 0.8 minutes 0 minutes Air Kerma 2.35 mGy 2.35 mGy 0 mGy Dose Area Product 0.28 mGy-cm2 0.28 mGy-cm2 0 mGy-cm2
== END 2025-04-04 09:41 | disposition home or self-care (01) ==
LOC: HO.HKAS 09:23
PROVIDERS: Visit Provider Internal Medicine Nephrology
DX: N18.32 Chronic kidney disease, stage 3b (principal); I10 Essential (primary) hypertension; N27.0 Small kidney, unilateral
CPT/HCPCS: 99214

== ENCOUNTER → 2025-04-04 09:22 | Outpatient (BNVA) | payer MEDICAID, SELFPAY | PROVIDERS: Visit Provider Internal Medicine Nephrology | DX: N18.32 Chronic kidney disease, stage 3b (principal); N27.0 Small kidney, unilateral; I10 Essential (primary) hypertension | CPT/HCPCS: 99212 ==